=== PATIENT | female | born 1935 | race Hispanic/Latino ===

== ENCOUNTER 2018-09-17 17:48 | Emergency (ER) | payer MEDICARE ==
--- NOTE | 2018-09-17 18:08 | Event Note ---
ED Screening Note Date of service: 09/17/18 Time: 18:03 ED Screening Note: 83 y/o female comes in for weakness and not able to void except going through Preston. Decrease oral fluids and food. PMH stroke with rt side weakness. Has St Case heart valve. Here with [employer]. Has not started her abx and continues with lasix. This initial assessment/diagnostic orders/clinical plan/treatment(s) is/are subject to change based on patients health status, clinical progression and re- assessment by fellow clinical providers in the ED. Further treatment and workup at subsequent clinical providers discretion. Patient/guardian urged not to elope from the ED as their condition may be serious if not clinically assessed and managed. Initial orders include:
[2018-09-17 18:30] LABS: Basophils % (Auto) 0.2 % (0.0-1.8); Eosinophils # (Auto) 0.4 K/mm3 (0.0-0.4); Eosinophils % (Auto) 2.5 % (0.0-4.3); Hematocrit 34.4 % (30.3-42.9); Hemoglobin 11.3 gm/dl (10.1-14.3); Lymphocytes # (Auto) 1.8 K/mm3 (1.2-5.4); Lymphocytes % (Auto) 12.7 % (13.4-35.0); Mean Corpuscular HGB Conc 33 % (30-34); Mean Corpuscular Volume 87 fl (79-97); Monocytes # (Auto) 1.6 K/mm3 (0.0-0.8); Monocytes % (Auto) 11.1 % (0.0-7.3); Platelet Count 351 K/mm3 (140-440); Red Blood Count 3.94 M/mm3 (3.65-5.03); Red Cell Distribution Width 14.3 % (13.2-15.2)
[2018-09-17 19:00] LABS: Albumin 3.3 g/dL (3.9-5); Calcium 9.1 mg/dL (8.4-10.2)
[2018-09-17] MEDS ORDERED: NACL 0.9% 500 ML 500 ML IV ONE (19:09)
[2018-09-17] MEDS ORDERED: ROCEPHIN/NS 1 GM/50 ML 1 GM/50 ML BAG IV ONE (19:09)
[2018-09-17 19:49] LABS: Bacteria,Urine 4+ /HPF (Negative); Bilirubin,Urine NEG (Negative); Blood,Urine LG (Negative); Color,Urine Amber (Yellow); Mucus,Urine 2+ /HPF; Urobilinogen,Urine < 2.0 mg/dL (<2.0)
[2018-09-17 19:51] LABS: RBC,Urine > 182.0 /HPF (0.0-6.0)
[2018-09-17 19:56] LABS: INR 2.71 (0.87-1.13); Partial Thromboplastin Time 41.1 Sec. (24.2-36.6)
--- NOTE | 2018-09-17 21:09 | Emergency Department Report ---
ED Female HPI - General Chief complaint: Weakness Stated complaint: DEHYDRATION/KIDNEY AND BLADDER ISSUES/BRONCITIS Time Seen by Provider: 09/17/18 19:01 Source: patient, family Mode of arrival: Wheelchair Limitations: No Limitations - History of Present Illness Initial comments: Mrs. Lange is a very pleasant 83-year-old female with history of COPD, aortic valve replacement who was recently discharged from [facility] at 2:30 PM this afternoon. Due to "bladder not working", she has a Fang catheter in place. She developed hematuria with sediment. She called [place] [facility] who recommended emergency ED evaluation. She has been prescribed Ceftin. However she did not receive antibiotics while hospitalized for the last 4 days since . Her treatment diagnosis included dehydration, fall, urinary problems. She currently does not have any pain. Her personal nurse at the bedside stated chest x-ray today did not reveal any pneumonia. MD Complaint: other (hematuria) -: Gradual, This afternoon Severity: mild Consistency: constant Improves with: none Worsens with: none Are you Now?: No Associated Symptoms: other (cough) - Related Data Allergies Allergy/AdvReac Type Severity Reaction Status Date / Time acetaminophen [From Percocet] Allergy Swelling Verified 09/17/18 18:10 amitriptyline [From Elavil] Allergy Swelling Verified 09/17/18 18:10 Beta-Blockers Allergy Unknown Verified 09/17/18 18:10 (Beta-Adrenergic Bloc oxycodone [From Percocet] Allergy Swelling Verified 09/17/18 18:10 ED Review of Systems ROS: Stated complaint: DEHYDRATION/KIDNEY AND BLADDER ISSUES/BRONCITIS Other details as noted in HPI Comment: All other systems reviewed and negative Constitutional: malaise Respiratory: cough ED Past Medical Hx - Past Medical History Previous Medical History?: Yes Hx Hypertension: Yes Hx CVA: Yes Hx Diabetes: Yes Hx COPD: Yes Hx Dementia: Yes - Surgical History Past Surgical History?: Yes Additional Surgical History: back surgery, heart valve replacement - Social History Smoking Status: Unknown if ever smoked ED Physical Exam - General Limitations: No Limitations General appearance: alert, in no apparent distress - Head Head exam: Present: atraumatic, normocephalic - Eye Eye exam: Present: normal appearance - ENT ENT exam: Present: mucous membranes moist - Neck Neck exam: Present: normal inspection, full ROM - Respiratory Respiratory exam: Present: normal lung sounds bilaterally. Absent: respiratory distress, wheezes, rales, rhonchi - Cardiovascular Cardiovascular Exam: Present: regular rate, normal rhythm, normal heart sounds. Absent: systolic murmur, diastolic murmur, rubs, gallop - GI/Abdominal GI/Abdominal exam: Present: soft, normal bowel sounds. Absent: distended, tenderness, guarding, rebound - Extremities Exam Extremities exam: Present: normal inspection - Back Exam Back exam: Present: normal inspection - Neurological Exam Neurological exam: Present: alert, oriented X3 - Psychiatric Psychiatric exam: Present: normal affect, normal mood - Skin Skin exam: Present: warm, dry, intact, normal color. Absent: rash - Other Other exam information: dark orange urine in collection bag attached to fang catheter with sediment ED Course Vital Signs 09/17/18 09/17/18 09/17/18 17:56 19:25 19:50 Temperature 99.0 F 98.6 F Pulse Rate 86 88 Respiratory 11 L 12 12 Rate Blood Pressure Blood Pressure 126/60 134/51 [Right] O2 Sat by Pulse 93 91 91 Oximetry 09/17/18 20:30 Temperature Pulse Rate 86 Respiratory 16 Rate Blood Pressure 136/52 Blood Pressure [Right] O2 Sat by Pulse 91 Oximetry ED Medical Decision Making - Lab Data Result diagrams: 09/17/18 18:15 09/17/18 18:15 Laboratory Results - last 24 hr 09/17/18 09/17/18 09/17/18 18:15 18:15 19:31 WBC 14.0 H RBC 3.94 Hgb 11.3 Hct 34.4 MCV 87 MCH 29 MCHC 33 RDW 14.3 Plt Count 351 Lymph % (Auto) 12.7 L Sierra % (Auto) 11.1 H Eos % (Auto) 2.5 Baso % (Auto) 0.2 Lymph # 1.8 Sierra # 1.6 H Eos # 0.4 Baso # 0.0 Seg Neutrophils % 73.5 H Seg Neutrophils # 10.3 H PT INR APTT Sodium 139 Potassium 4.4 Chloride 99.9 Carbon Dioxide 28 Anion Gap 16 BUN 21 H Creatinine 1.3 H Estimated GFR 39 BUN/Creatinine Ratio 16 Glucose 146 H Calcium 9.1 Total Bilirubin 0.30 AST 22 ALT 11 Alkaline Phosphatase 60 NT-Pro-B Natriuret Pep 3874 H Total Protein 7.0 Albumin 3.3 L Albumin/Globulin Ratio 0.9 Urine Color Ary Urine Turbidity Slightly-cloudy Urine pH 5.0 Ur Specific [place] 1.018 Urine Protein 100 mg/dl Urine Glucose (UA) Neg Urine Ketones Neg Urine Blood Lg Urine Nitrite Pos Urine Bilirubin Neg Urine Urobilinogen < 2.0 Ur Leukocyte Esterase Sm Urine WBC (Auto) 171.0 H Urine RBC (Auto) > 182.0 Urine Bacteria (Auto) 4+ Urine Mucus 2+ 09/17/18 19:38 WBC RBC Hgb Hct MCV MCH MCHC RDW Plt Count Lymph % (Auto) Sierra % (Auto) Eos % (Auto) Baso % (Auto) Lymph # Sierra # Eos # Baso # Seg Neutrophils % Seg Neutrophils # PT 28.3 H INR 2.71 H APTT 41.1 H Sodium Potassium Chloride Carbon Dioxide Anion Gap BUN Creatinine Estimated GFR BUN/Creatinine Ratio Glucose Calcium Total Bilirubin AST ALT Alkaline Phosphatase NT-Pro-B Natriuret Pep Total Protein Albumin Albumin/Globulin Ratio Urine Color Urine Turbidity Urine pH Ur Specific [place] Urine Protein Urine Glucose (UA) Urine Ketones Urine Blood Urine Nitrite Urine Bilirubin Urine Urobilinogen Ur Leukocyte Esterase Urine WBC (Auto) Urine RBC (Auto) Urine Bacteria (Auto) Urine Mucus - Medical Decision Making Mrs. Lange has an indwelling Fang catheter from recent hospitalization. She was discharged today. She now has catheter associated urinary tract infection. She was prescribed the appropriate antibiotic Ceftin. She received IV fluid in the ED. She also received IV ceftriaxone. She received IV fluid due to concern for dehydration. Her personal nurse at the bedside requested IV fluid therapy. Discharged home in stable condition. Critical care attestation.: If time is entered above; I have spent that time in minutes in the direct care of this critically ill patient, excluding procedure time. ED Disposition Clinical Impression: Urinary tract infection, Dehydration Disposition: DC-01 TO HOME OR SELFCARE Is pt being admited?: No Does the pt Need Aspirin: No Condition: Stable Instructions: Fang Catheter Placement and Care (ED), Urinary Tract Infection in Women (ED) Referrals: ROCAEL WILBURN MD [Staff Physician] - 3-5 Days
[2018-09-17 21:31] VITALS: BP 133/60
== END 2018-09-17 21:25 | disposition home or self-care (01) ==
LOC: ED 17:48
DX: N39.0 Urinary tract infection, site not specified (principal); E86.0 Dehydration; I10 Essential (primary) hypertension; E11.9 Type 2 diabetes mellitus without complications; J44.9 Chronic obstructive pulmonary disease, unspecified; F03.90 Unspecified dementia, unspecified severity, without behavioral disturbance, psychotic disturbance, mood disturbance, and anxiety; Z95.2 Presence of prosthetic heart valve; Z88.8 Allergy status to other drugs, medicaments and biological substances; Z86.73 Personal history of transient ischemic attack (TIA), and cerebral infarction without residual deficits
CPT/HCPCS: 36415; 80053; 81001; 83880; 85025; 85610; 85730; 87076; 87086; 87186; 96365; 99283; J7040

== ENCOUNTER 2018-09-22 17:47 | Emergency (ER) | payer MEDICARE ==
[2018-09-22] MEDS ORDERED: ZOFRAN IV ONE (19:18)
[2018-09-22] MEDS ORDERED: NACL 0.9% 500 ML 500 ML IV ONE (19:18)
[2018-09-22] MEDS ORDERED: MORPHINE IV ONE (19:18)
--- NOTE | 2018-09-22 19:32 | Emergency Department Report ---
ED Female HPI - General Chief complaint: Urogenital-Female Stated complaint: BLOOD IN URINE Time Seen by Provider: 09/22/18 19:18 Source: patient Mode of arrival: Stretcher Limitations: No Limitations - History of Present Illness Initial comments: Mrs. Lange is a very pleasant 83-year-old female patient. I evaluated her recently in our emergency department. At that time she came immediately after being discharged for fall, UTI and dehydration. Her medical history includes COPD, aortic valve replacement. She presents today with hematuria and pelvic pain. She was evaluated by [place] neurology Dr. Christian. Dr. Christian has arranged further testing for bladder dysfunction. The tests scheduled for 10 days. Today she was evaluated and ambulated by physical therapist. After a short walk, patient developed hematuria with blood clots in the collection bag. She then developed severe pelvic pressure-like pain. MD Complaint: pelvic pain, other (hematuria) -: Sudden, This afternoon Location: other (pelvic pain) Severity: moderate, severe Quality: other (pressure) Consistency: constant Improves with: none Worsens with: none Are you Now?: No - Related Data Allergies Allergy/AdvReac Type Severity Reaction Status Date / Time acetaminophen [From Percocet] Allergy Swelling Verified 09/17/18 18:10 amitriptyline [From Elavil] Allergy Swelling Verified 09/17/18 18:10 Beta-Blockers Allergy Unknown Verified 09/17/18 18:10 (Beta-Adrenergic Bloc oxycodone [From Percocet] Allergy Swelling Verified 09/17/18 18:10 ED Review of Systems ROS: Stated complaint: BLOOD IN URINE Other details as noted in HPI Comment: All other systems reviewed and negative Constitutional: denies: fever, malaise Respiratory: denies: cough Cardiovascular: denies: chest pain Gastrointestinal: other (pelvic pain) Genitourinary: hematuria ED Past Medical Hx - Past Medical History Previous Medical History?: Yes Hx Hypertension: Yes Hx CVA: Yes Hx Diabetes: Yes Hx COPD: Yes Hx Dementia: Yes - Surgical History Past Surgical History?: Yes Additional Surgical History: back surgery, heart valve replacement - Social History Smoking Status: Former Smoker Substance Use Type: None ED Physical Exam - General Limitations: No Limitations General appearance: alert, in no apparent distress - Head Head exam: Present: atraumatic, normocephalic - Eye Eye exam: Present: normal appearance - ENT ENT exam: Present: mucous membranes moist - Neck Neck exam: Present: normal inspection, full ROM - Respiratory Respiratory exam: Present: normal lung sounds bilaterally. Absent: respiratory distress, wheezes, rales, rhonchi - Cardiovascular Cardiovascular Exam: Present: regular rate, normal rhythm, normal heart sounds. Absent: rubs, gallop - GI/Abdominal GI/Abdominal exam: Present: soft, normal bowel sounds. Absent: distended, tenderness, guarding, rebound - Extremities Exam Extremities exam: Present: normal inspection - Neurological Exam Neurological exam: Present: alert, oriented X3 - Psychiatric Psychiatric exam: Present: normal affect, normal mood - Skin Skin exam: Present: warm, dry, intact, normal color. Absent: rash - Other Other exam information: I reviewed urine collection bag: [place]ow dark urine observed without hematuria or clots or sediment ED Course Vital Signs 09/22/18 09/22/18 09/22/18 18:35 18:38 19:00 Temperature 98.0 F Pulse Rate 65 Respiratory 18 Rate Blood Pressure 125/48 128/53 Blood Pressure [Left] O2 Sat by Pulse 97 97 97 Oximetry 09/22/18 09/22/18 09/22/18 19:45 19:47 20:00 Temperature Pulse Rate Respiratory 17 17 Rate Blood Pressure 143/56 Blood Pressure [Left] O2 Sat by Pulse 94 Oximetry 09/22/18 09/22/18 20:43 23:19 Temperature Pulse Rate 65 Respiratory 15 Rate Blood Pressure 119/44 Blood Pressure 146/60 [Left] O2 Sat by Pulse 93 89 Oximetry ED Medical Decision Making - Lab Data Result diagrams: 09/22/18 19:33 09/22/18 19:33 - Radiology Data Radiology results: report reviewed CT scan abdomen and pelvis without contrast revealed right inferior rectus hematoma - Medical Decision Making Mrs. Lange presents with hematuria and dark urine pelvic pain. I suspect incidental trauma during physical therapy. Also suspect hematoma is likely reflective of previous fall which required admission recently. I gave the patient reassurance. She is continuing the antibiotic. She was discharged with an oral cephalosporin. I reviewed urine culture results, Escherichia coli organism is pansensitive. I have prescribed tramadol. Discharged home. INR is 3.0 Critical care attestation.: If time is entered above; I have spent that time in minutes in the direct care of this critically ill patient, excluding procedure time. ED Disposition Clinical Impression: Abdominal wall hematoma, Hematuria, Preston catheter in place, Anticoagulation adequate Disposition: DC-01 TO HOME OR SELFCARE Is pt being admited?: No Does the pt Need Aspirin: No Condition: Stable Instructions: Acute Hematuria (ED), Contusion in Adults (ED)
[2018-09-22] MEDS ORDERED: NACL 0.9% 250ML 500 ML ONE (19:41)
[2018-09-22 19:46] LABS: Basophils % (Auto) 0.4 % (0.0-1.8); Eosinophils # (Auto) 0.3 K/mm3 (0.0-0.4); Eosinophils % (Auto) 3.2 % (0.0-4.3); Hematocrit 29.7 % (30.3-42.9); Hemoglobin 9.9 gm/dl (10.1-14.3); Lymphocytes # (Auto) 1.9 K/mm3 (1.2-5.4); Lymphocytes % (Auto) 18.9 % (13.4-35.0); Mean Corpuscular HGB Conc 33 % (30-34); Mean Corpuscular Volume 87 fl (79-97); Monocytes # (Auto) 0.6 K/mm3 (0.0-0.8); Monocytes % (Auto) 6.4 % (0.0-7.3); Platelet Count 371 K/mm3 (140-440); Red Blood Count 3.42 M/mm3 (3.65-5.03); Red Cell Distribution Width 13.9 % (13.2-15.2)
[2018-09-22 20:02] LABS: Calcium 9.2 mg/dL (8.4-10.2)
--- NOTE | 2018-09-22 21:17 | Cat Scan Report ---
CT abdomen pelvis wo con INDICATION: Abdominal Pain. TECHNIQUE: All CT scans at this location are performed using CT dose reduction for ALARA by means of automated e xposure control. COMPARISON: None available. FINDINGS: Chronic interstitial disease in the lung bases, with a 1.3 cm left lower lobe nodule and what is thou ght to be focal pleural parenchymal scarring in the right base. Cholecystectomy. Liver, spleen and pancreas appear negative on this noncontrast exam. Nonobstructing calculus in the midpole of the right kidney. Kidneys and adrenals are otherwise negative. Abdominal a chuy is atherosclerotic but normal in size. Pelvis Normal appendix. Focal thickening of the right inferior rectus muscle, appears suggestive of hematoma . Scattered diverticula throughout the entire colon but no evidence of diverticulitis. Urinary bladde r is contracted and appears thick walled. Degenerative changes in the thoracolumbar spine but no acute skeletal lesions. IMPRESSION: 1. Right inferior rectus hematoma. 1.3 cm left lower lobe pulmonary nodule. It may be worthwhile to further evaluate the lungs with ches t CT. Signer Name: Dann Gardner MD Signed: 09/22/2018 9:13 PM Workstation Name: [id number]
[2018-09-22 21:27] LABS: Bacteria,Urine 2+ /HPF (Negative); Bilirubin,Urine NEG (Negative); Blood,Urine LG (Negative); Color,Urine Yellow (Yellow); Mucus,Urine FEW /HPF; Protein,Urine <15 mg/dL mg/dL (Negative); Urobilinogen,Urine < 2.0 mg/dL (<2.0)
[2018-09-22 21:28] LABS: RBC,Urine > 182.0 /HPF (0.0-6.0)
[2018-09-22 23:36] LABS: INR 2.98 (0.87-1.13)
[2018-09-23 02:46] VITALS: BP 114/48
== END 2018-09-23 00:10 | disposition home or self-care (01) ==
LOC: ED 17:47
DX: S36.32XA Contusion of stomach, initial encounter (principal); R31.9 Hematuria, unspecified; I10 Essential (primary) hypertension; E11.9 Type 2 diabetes mellitus without complications; J44.9 Chronic obstructive pulmonary disease, unspecified; F03.90 Unspecified dementia, unspecified severity, without behavioral disturbance, psychotic disturbance, mood disturbance, and anxiety; I63.9 Cerebral infarction, unspecified; Z87.891 Personal history of nicotine dependence; Z88.6 Allergy status to analgesic agent; Z88.8 Allergy status to other drugs, medicaments and biological substances; X58.XXXA Exposure to other specified factors, initial encounter; Y93.89 Activity, other specified; Y92.89 Other specified places as the place of occurrence of the external cause; Y99.8 Other external cause status
CPT/HCPCS: 36415; 74176; 80048; 81001; 85025; 85610; 87086; 96374; 96375; 99285; J2270; J2405; J7050

== ENCOUNTER 2018-09-27 17:14 | Inpatient (IN) | payer MEDICARE ==
--- NOTE | 2018-09-27 18:31 | History and Physical Report ---
History of Present Illness Chief complaint: she is weak, and more confused History of present illness: 83 YO Female with COPD,AVR, Debility, Dementia, Urinary Retention with indwelling fang catheter presents to ED for evaluation. Pt is confused and unable to provide detailed history. Pt history provided by daughter and son who are at bedside during exam and interview. As per family, the patient initially complained of pain with urination and well as pain with urination over the past week, with worsening symptoms over the past 3 days with concomitant confusion, decreased interaction with family. Pt also experienced decreased ability to conduct activities of daily living, and increased bedbound status with worsening gait instability. Pt is currently unable to ambulate independently and maintain upright seated position. Family also reports shortness of breath and increased productive cough with production of clear sputum without relief of symptoms with increased nebulizer therapy. EMS notified, and uopn arrival the patient was found to be in distress and transported to [facility]. Pt seen and evaluated in ED and found to have Encephalopathy, suspected UTI, COPD Exacerbation. Pt is unable to provide urine sample. No further history obtainable. Case management consulted for D/C Planning and placement. Advanced care planning conducted with patient and family:30minutes. Pt family acknowledge understanding and agreement with care plan. Pt admitted to [facility]. Past History Past Medical History: COPD, diabetes, hypertension, stroke, other (Urinary retention) Past Surgical History: valve replacement, Other (Back surgery') Social history: , lives with family. denies: smoking, alcohol abuse, prescription drug abuse Family history: hypertension Medications and Allergies Allergies Allergy/AdvReac Type Severity Reaction Status Date / Time acetaminophen [From Percocet] Allergy Swelling Verified 09/27/18 17:47 amitriptyline [From Elavil] Allergy Swelling Verified 09/27/18 17:47 Beta-Blockers Allergy Unknown Verified 09/27/18 17:47 (Beta-Adrenergic Bloc oxycodone [From Percocet] Allergy Swelling Verified 09/27/18 17:47 Review of Systems ROS unobtainable: due to mental status Exam - Constitutional Vitals: Temp Pulse Resp BP Pulse Ox 97.5 F L 60 16 127/63 97 09/27/18 17:39 09/27/18 17:39 09/27/18 17:39 09/27/18 17:39 09/27/18 17:39 General appearance: Present: mild distress - EENT ENT: hearing intact, clear oral mucosa - Neck Neck: Present: supple, normal ROM - Respiratory Respiratory: bilateral: CTA - Cardiovascular Heart Sounds: Present: S1 & S2. Absent: rub, click - Extremities Extremities: pulses symmetrical, No edema Peripheral Pulses: within normal limits - Abdominal General gastrointestinal: Present: soft, non-tender, non-distended, normal bowel sounds Female genitourinary: Present: normal - Integumentary Integumentary: Present: clear, dry, clammy, decreased turgor - Musculoskeletal Musculoskeletal: generalized weakness - Psychiatric Psychiatric: no appropriate mood/affect, no intact judgment & insight, no memory intact - Neurologic Neurologic: CNII-XII intact, moves all extremities, no gait normal Assessment and Plan - Patient Problems (1) Encephalopathy Current Visit: Yes Status: Acute Plan to address problem: CT head, Neuro check, IVF resuscitation therapy, seizure precautions, fall precautions, aspiration precautions, thyroid panel (2) COPD with exacerbation Current Visit: Yes Status: Acute Plan to address problem: Supplemental oxygen, chest x ray, d dimer, steroid therapy, nebulizer therapy, pulse oximetry, (3) Urinary tract infection Current Visit: No Status: Acute Qualifiers: Encounter type: initial encounter Plan to address problem: Empiric IV antibiotic therapy, urinalysis, pain control, CBC, CMP, monitor uop q shift. (4) Debility Current Visit: Yes Status: Acute Plan to address problem: PT consulted, supportive care, fall precautions. (5) Diabetes Current Visit: Yes Status: Acute Plan to address problem: ADA diet, insulin, acc check, supportive care. Hypoglycemia protocol. (6) H/O aortic valve replacement Current Visit: Yes Status: Chronic Plan to address problem: NO therapeutic anticoagulation: Pt is a fall risk. (7) DVT prophylaxis Current Visit: Yes Status: Acute Plan to address problem: SCD to BLE while in bed, prophylactic lovenox
[2018-09-27] MEDS ORDERED: ZOFRAN IV PRN (18:34)
[2018-09-27] MEDS ORDERED: SODIUM CHLORIDE FLUSH SYRINGE 10 ML IV PRN (18:34)
[2018-09-27] MEDS ORDERED: TYLENOL PO PRN (18:34)
[2018-09-27] MEDS ORDERED: SOLU-Medrol IV ONE (18:51)
--- NOTE | 2018-09-27 18:53 | Emergency Department Report ---
ED General Adult HPI - General Chief complaint: Urogenital-Female Stated complaint: CATHETER Source: patient Mode of arrival: Stretcher Limitations: No Limitations - History of Present Illness Initial comments: Mrs. Lange is an 83 yo female with hx of COPD, AVR and indwelling fang catheter. I am familiar with patient and family members (son and [id number]). This is my third evaluaton of Mrs. Lange in the past 11 days. [id number] has noticed worsening confusion. Recurrent hematuria has appears worse today. ON my most recent previous evaluation, she has lower abdominal pain. Inferior rectus hematoma was seen on CT which corresponds to bruising see on her lower abdomen and pelvis -: Gradual, week(s) (2 ) Consistency: constant Improves with: none Worsens with: other (time) Associated Symptoms: confusion, loss of appetite, malaise, weakness - Related Data Previous Rx's Medication Instructions Recorded Last Taken Type traMADol [Ultram 50 MG tab] 50 mg PO Q6HR PRN #15 tablet 09/22/18 Unknown Rx Allergies Allergy/AdvReac Type Severity Reaction Status Date / Time acetaminophen [From Percocet] Allergy Swelling Verified 09/27/18 17:47 amitriptyline [From Elavil] Allergy Swelling Verified 09/27/18 17:47 Beta-Blockers Allergy Unknown Verified 09/27/18 17:47 (Beta-Adrenergic Bloc oxycodone [From Percocet] Allergy Swelling Verified 09/27/18 17:47 ED Review of Systems ROS: Stated complaint: CATHETER Other details as noted in HPI Comment: Unobtainable due to pts medical conditions (limited hx due to patient's cooperation, elderly senility) Constitutional: malaise Neurological: confusion Hematological/Lymphatic: easy bruising ED Past Medical Hx - Past Medical History Previous Medical History?: Yes Hx Hypertension: Yes Hx CVA: Yes Hx Diabetes: Yes Hx COPD: Yes Hx Dementia: Yes - Surgical History Past Surgical History?: Yes Additional Surgical History: back surgery, heart valve replacement - Social History Smoking Status: Former Smoker Substance Use Type: None - Medications Home Medications: Home Medications Medication Instructions Recorded Confirmed Last Taken Type traMADol [Ultram 50 MG tab] 50 mg PO Q6HR PRN #15 tablet 09/22/18 Unknown Rx ED Physical Exam - General Limitations: No Limitations General appearance: alert, in no apparent distress, other (appears frail, elderly, chronically ill) - Head Head exam: Present: atraumatic, normocephalic - Eye Eye exam: Present: normal appearance - ENT ENT exam: Present: mucous membranes dry - Neck Neck exam: Present: normal inspection, full ROM - Respiratory Respiratory exam: Present: normal lung sounds bilaterally. Absent: respiratory distress, wheezes, rales - Cardiovascular Cardiovascular Exam: Present: regular rate, normal rhythm, normal heart sounds. Absent: rubs, gallop - GI/Abdominal GI/Abdominal exam: Present: soft, tenderness, guarding, normal bowel sounds, other (bruising and abrasions lower abdomen and pelvis). Absent: distended, rebound - Extremities Exam Extremities exam: Present: normal inspection - Back Exam Back exam: Present: normal inspection - Neurological Exam Neurological exam: Present: alert, other (oriented to name and "hospital") - Psychiatric Psychiatric exam: Present: normal mood, depressed, flat affect - Skin Skin exam: Present: rash, pallor, abrasion, ecchymosis ED Course Vital Signs 09/27/18 09/27/18 17:39 18:00 Temperature 97.5 F L Pulse Rate 60 Respiratory 16 16 Rate Blood Pressure 127/63 O2 Sat by Pulse 97 98 Oximetry Critical care attestation.: If time is entered above; I have spent that time in minutes in the direct care of this critically ill patient, excluding procedure time. ED Disposition Condition: Stable Referrals: WESTLEY OLIVA MD [Primary Care Provider] - 3-5 Days
[2018-09-27] MEDS ORDERED: SOLU-Medrol ONE (19:25)
--- NOTE | 2018-09-27 19:58 | XRay Report ---
CHEST 1 VIEW INDICATION / CLINICAL INFORMATION: dypsnea. COMPARISON: None available. FINDINGS: SUPPORT DEVICES: None. HEART / MEDIASTINUM: No significant abnormality. Midline sternotomy noted. LUNGS / PLEURA: Emphysema. No significant pulmonary or pleural abnormality. No pneumothorax. ADDITIONAL FINDINGS: No significant additional findings. IMPRESSION: 1. No acute findings. Signer Name: Ranjeet Price MD Signed: 09/27/2018 7:54 PM Workstation Name: [id number]
[2018-09-27 20:27] LABS: Basophils % (Auto) 0.3 % (0.0-1.8); Eosinophils # (Auto) 0.3 K/mm3 (0.0-0.4); Eosinophils % (Auto) 3.5 % (0.0-4.3); Hemoglobin 9.8 gm/dl (10.1-14.3); Lymphocytes # (Auto) 2.3 K/mm3 (1.2-5.4); Lymphocytes % (Auto) 25.2 % (13.4-35.0); Mean Corpuscular HGB Conc 33 % (30-34); Mean Corpuscular Hemoglobin 29 pg (28-32); Mean Corpuscular Volume 88 fl (79-97); Monocytes # (Auto) 0.6 K/mm3 (0.0-0.8); Monocytes % (Auto) 6.6 % (0.0-7.3); Platelet Count 417 K/mm3 (140-440); Red Blood Count 3.42 M/mm3 (3.65-5.03); Red Cell Distribution Width 14.5 % (13.2-15.2)
[2018-09-27 20:42] LABS: Bacteria,Urine 1+ /HPF (Negative); Bilirubin,Urine NEG (Negative); Blood,Urine LG (Negative); Color,Urine Yellow (Yellow); Hyaline Casts,Urine 3 /LPF; Mucus,Urine FEW /HPF; Urobilinogen,Urine < 2.0 mg/dL (<2.0)
--- NOTE | 2018-09-27 20:42 | Cat Scan Report ---
CT HEAD WITHOUT CONTRAST INDICATION: MAIN: FELL LAST WEEK. DIZZINESS. TECHNIQUE: All CT scans at this location are performed using CT dose reduction for ALARA by means of automated exposure control. COMPARISON: None available. FINDINGS: BRAIN: No hemorrhage or mass effect are seen. No evidence of acute infarction is noted. Moderate whit e matter microvascular changes are seen. Mild atrophic changes are noted. ORBITS: Normal as visualized. SOFT TISSUES OF HEAD: Normal. CALVARIUM: No fractures are seen. 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 VISUALIZED PARANASAL SINUSES AND MASTOID AIR CELLS: Mild ethmoid mucosal thickening is seen. No air-f luid levels are noted. ADDITIONAL FINDINGS: None. IMPRESSION: No acute intracranial abnormality. Signer Name: Bladimir Norman MD Signed: 09/27/2018 8:37 PM Workstation Name: [id number]
[2018-09-27 20:45] LABS: Albumin 3.4 g/dL (3.9-5); Calcium 8.9 mg/dL (8.4-10.2)
[2018-09-27 20:45] LABS: RBC,Urine > 182.0 /HPF (0.0-6.0)
[2018-09-27 20:52] LABS: Free T4 (Free Thyroxine) 0.96 ng/dL (0.76-1.46)
[2018-09-28] MEDS ORDERED: COUMADIN PO SCH (10:00)
[2018-09-28] MEDS ORDERED: PEPCID PO SCH (10:00)
[2018-09-28] MEDS ORDERED: NON-FORMULARY (Isosorbide Mononitrate [Isosorbide Mononitrate] 30 MG) PO SCH (10:00)
[2018-09-28] MEDS ORDERED: NON-FORMULARY (Calcium Carbonate [Calcium 600mg Tab] 600 MG) PO SCH (10:00)
[2018-09-28] MEDS ORDERED: K-DUR PO SCH (10:00)
[2018-09-28] MEDS ORDERED: CYANOCOBALAMIN 500 MG PO SCH (10:00)
[2018-09-28] MEDS: NACL 0.9% 1000 ML 1,000 ML IV SCH (10:28)
[2018-09-28] MEDS: ROCEPHIN/NS 1 GM/50 ML 1 GM/50 ML BAG IV SCH (10:30)
[2018-09-28] MEDS: PEPCID PO SCH ×2 (10:35→21:48)
[2018-09-28] MEDS: NAMENDA PO SCH ×2 (10:35→21:47)
[2018-09-28] MEDS: GLUCOPHAGE PO SCH (10:35)
[2018-09-28] MEDS: HALFPRIN EC PO SCH (10:35)
[2018-09-28] MEDS: VITAMIN D3 PO SCH (10:36)
[2018-09-28] MEDS: LASIX PO SCH (10:36)
[2018-09-28] MEDS: celeXA PO SCH (10:36)
[2018-09-28] MEDS: SODIUM CHLORIDE FLUSH SYRINGE 10 ML IV SCH ×3 (10:37→21:50)
[2018-09-28] MEDS: IMDUR PO SCH (10:38)
--- NOTE | 2018-09-28 11:08 | Progress Note ---
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 Pt is confused and unable to provide detailed history. Pt history provided by daughter and son who are at bedside during exam and interview. As per family, the patient initially complained of pain with urination and well as pain with urination over the past week, with worsening symptoms over the past 3 days with concomitant confusion, decreased interaction with family. Pt also experienced decreased ability to conduct activities of daily living, and increased bedbound status with worsening gait instability. Pt is currently unable to ambulate independently and maintain upright seated position. Family also reports shortness of breath and increased productive cough with production of clear sputum without relief of symptoms with increased nebulizer therapy. EMS notified, and uopn arrival the patient was found to be in distress and mao sported to [facility]. Pt seen and evaluated in ED and found to have Encephalopathy, suspected UTI, COPD Exacerbation. CT Head: No acute pathology Acute Metabolic Encephalopathy with baseline Dementia although worsening COPD with exacerbation Acute Cystitis with no evidence of SEPSIS Debility Diabetes Mellitus Urinary Retention with chronic indewwelling fang-Oupt work up in progress Secondary coagulopathy AVR-[place], Mechanical valve >30 years ago Dementia Hyperkalemia Anemia Inferior Rectus wall Hematoma PLAN Complex patient considering co-morbidites Monitor H/H Countinue coumadin, obtain Card eval PT/OT eval due to recurrent falls, risk discussed with patient and family (Son and daughter in-law) Fall precautions Urine culture Kayxalate x 1 continue abx CTA chest and Doppler lower ext dvt/GI PROPHY History Interval history: Patient seen and examined today complains of pain on both sides off Fang catheter attachments of the leg otherwise no other complaints. I did return and have a discussion with family reports the patient has had a mechanical aortic valve for almost 40 years. Has been on Coumadin unfortunately has continued to have recurrent falls including an episode where they believe she had hit her head on the sink was evaluated at [facility] at discharge. Most recent fall about 2 weeks ago. Hospitalist Physical - Physical exam Narrative exam: VITAL SIGNS: Reviewed. GENERAL: The patient appeared normally developed, pale. Vital signs as docu mented. HEAD: No signs of head trauma. EYES: Pupils are equal. Extraocular motions intact. EARS: Hearing grossly intact. MOUTH: Oropharynx is normal. NECK: No adenopathy, no JVD. CHEST: Chest with clear breath sounds bilaterally. No wheezes, rales, or rhonchi. CARDIAC: Regular rate and rhythm. S1 and S2, without murmurs, gallops, or rubs. VASCULAR: No Edema. Peripheral pulses normal and equal in all extremities. ABDOMEN: Soft, non tender and non distended. Hematoma noted No rebound or guarding, and no masses palpated. Bowel Sounds normal. : Fang catheter in place MUSCULOSKELETAL: Good range of motion of all major joints. Extremities without clubbing, cyanosis or edema. NEUROLOGIC EXAM: Alert and oriented x 3 No focal sensory or strength deficits. Speech normal. Follows commands. PSYCHIATRIC: Mood normal. SKIN: detail exam as documented in skin assessment septal notes that hematoma - Constitutional Vitals: Temp Pulse Resp BP Pulse Ox 98.1 F 63 18 150/66 98 09/28/18 08:08 09/28/18 10:38 09/28/18 08:08 09/28/18 10:38 09/28/18 08:31 General appearance: Present: mild distress Results - Labs CBC & Chem 7: 09/27/18 19:52 09/28/18 06:49 Labs: Laboratory Last Values WBC 9.0 K/mm3 (4.5-11.0) 09/27/18 19:52 RBC 3.42 M/mm3 (3.65-5.03) L 09/27/18 19:52 Hgb 9.8 gm/dl (10.1-14.3) L 09/27/18 19:52 Hct 30.0 % (30.3-42.9) L 09/27/18 19:52 MCV 88 fl (79-97) 09/27/18 19:52 MCH 29 pg (28-32) 09/27/18 19:52 MCHC 33 % (30-34) 09/27/18 19:52 RDW 14.5 % (13.2-15.2) 09/27/18 19:52 Plt Count 417 K/mm3 (140-440) 09/27/18 19:52 Lymph % (Auto) 25.2 % (13.4-35.0) 09/27/18 19:52 [place] % (Auto) 6.6 % (0.0-7.3) 09/27/18 19:52 Eos % (Auto) 3.5 % (0.0-4.3) 09/27/18 19:52 Baso % (Auto) 0.3 % (0.0-1.8) 09/27/18 19:52 Lymph # 2.3 K/mm3 (1.2-5.4) 09/27/18 19:52 [place] # 0.6 K/mm3 (0.0-0.8) 09/27/18 19:52 Eos # 0.3 K/mm3 (0.0-0.4) 09/27/18 19:52 Baso # 0.0 K/mm3 (0.0-0.1) 09/27/18 19:52 Seg Neutrophils % 64.4 % (40.0-70.0) 09/27/18 19:52 Seg Neutrophils # 5.8 K/mm3 (1.8-7.7) 09/27/18 19:52 408.99 ng/mlDDU (0-234) H 09/27/18 19:52 Sodium 138 mmol/L (137-145) 09/27/18 19:52 Potassium 5.5 mmol/L (3.6-5.0) H 09/28/18 06:49 Chloride 100.5 mmol/L (98-107) 09/27/18 19:52 Carbon Dioxide 32 mmol/L (22-30) H 09/27/18 19:52 11 mmol/L 09/27/18 19:52 BUN 21 mg/dL (7-17) H 09/27/18 19:52 1.2 mg/dL (0.7-1.2) 09/27/18 19:52 Estimated GFR 43 ml/min 09/27/18 19:52 18 % 09/27/18 19:52 Glucose 100 mg/dL (65-100) 09/27/18 19:52 Calcium 8.9 mg/dL (8.4-10.2) 09/27/18 19:52 0.20 mg/dL (0.1-1.2) 09/27/18 19:52 AST 17 units/L (5-40) 09/27/18 19:52 ALT 8 units/L (7-56) 09/27/18 19:52 58 units/L (35-129) 09/27/18 19:52 7.0 g/dL (6.3-8.2) 09/27/18 19:52 3.4 g/dL (3.9-5) L 09/27/18 19:52 0.9 % 09/27/18 19:52 TSH 3.420 mlU/mL (0.270-4.200) 09/27/18 19:52 Free T4 0.96 ng/dL (0.76-1.46) 09/27/18 19:52 Yellow (Yellow) 09/27/18 19:28 Cloudy (Clear) 09/27/18 19:28 5.0 (5.0-7.0) 09/27/18 19:28 Ur Specific Norman 1.016 (1.003-1.030) 09/27/18 19:28 30 mg/dl mg/dL (Negative) 09/27/18 19:28 Neg mg/dL (Negative) 09/27/18 19:28 Neg mg/dL (Negative) 09/27/18 19:28 Lg (Negative) 09/27/18 19:28 Neg (Negative) 09/27/18 19:28 Neg (Negative) 09/27/18 19:28 < 2.0 mg/dL (<2.0) 09/27/18 19:28 Ur Leukocyte Esterase Mod (Negative) 09/27/18 19:28 58.0 /HPF (0.0-6.0) H 09/27/18 19:28 > 182.0 /HPF (0.0-6.0) 09/27/18 19:28 U Epithel Cells (Auto) 3.0 /HPF (0-13.0) 09/27/18 19:28 1+ /HPF (Negative) 09/27/18 19:28 Hyaline Casts 3 /LPF 09/27/18 19:28 Few /HPF 09/27/18 19:28 2+ /HPF 09/27/18 19:28 Active Medications - Current Medications Current Medications: Generic Name Dose Route Start Last Admin Trade Name Freq PRN Reason Stop Dose Admin Albuterol 2.5 mg 09/27/18 18:34 Proventil IH Q4H PRN Shortness Of Breath Aspirin 81 mg 09/28/18 10:00 09/28/18 10:35 Halfprin Ec PO 81 mg DAILY LEONOR Administration Calcium Carbonate/Glycine 648 mg 09/28/18 22:00 Calcium Carbonate PO BID PENDING SALE TO [facility] Cholecalciferol 1,000 unit 09/28/18 10:00 09/28/18 10:36 Vitamin D3 PO 1,000 unit DAILY LEONOR Administration Citalopram Hydrobromide 10 mg 09/28/18 10:00 09/28/18 10:36 Celexa PO 10 mg DAILY LEONOR Administration Donepezil HCl 5 mg 09/28/18 22:00 Aricept PO QHS LEONOR Enoxaparin Sodium 40 mg 09/29/18 10:00 Lovenox SUB-Q QDAY LEONOR Famotidine 10 mg 09/28/18 11:00 09/28/18 10:35 Pepcid PO 10 mg BID LEONOR Administration Furosemide 40 mg 09/28/18 10:00 09/28/18 10:36 Lasix PO 40 mg DAILY LEONOR Administration Gabapentin 300 mg 09/28/18 22:00 Neurontin PO QHS PENDING SALE TO [facility] Sodium Chloride 1,000 mls @ 42 mls/hr 09/27/18 19:00 09/28/18 10:28 Nacl 0.9% 1000 Ml IV 42 mls/hr DIRECT LEONOR Administration Ceftriaxone Sodium 1 gm in 50 mls @ 100 mls/hr 09/28/18 10:00 09/28/18 10:30 Rocephin/Ns 1 Gm/50 Ml IV 100 mls/hr Q24H LEONOR Administration Protocol Isosorbide Mononitrate 30 mg 09/28/18 11:00 09/28/18 10:38 Imdur PO 30 mg DAILY LEONOR Administration Memantine 10 mg 09/28/18 10:00 09/28/18 10:35 Namenda PO 10 mg BID LEONOR Administration Metformin HCl 250 mg 09/28/18 10:00 09/28/18 10:35 Glucophage PO 250 mg QAMDIAB LEONOR Administration Miscellaneous Medication 500 mg 09/28/18 10:00 Cyanocobalamin (Vitamin B-12) [Vitamin B-12] PO DAILY PENDING SALE TO [facility] Ondansetron HCl 4 mg 09/27/18 18:34 Zofran IV Q8H PRN Nausea And Vomiting Potassium Chloride 10 meq 09/28/18 10:00 K-Dur PO DAILY LEONOR Primidone 50 mg 09/28/18 22:00 Mysoline PO QHS LEONOR Sodium Chloride 10 ml 09/27/18 22:00 09/28/18 10:37 Sodium Chloride Flush Syringe 10 Ml IV 10 ml BID LEONOR Administration Sodium Chloride 10 ml 09/27/18 18:34 Sodium Chloride Flush Syringe 10 Ml IV PRN PRN LINE FLUSH Warfarin Sodium 2.5 mg 09/28/18 10:00 Coumadin PO QWEEK PENDING SALE TO [facility] Protocol
[2018-09-28] MEDS: VITAMIN B-12 PO SCH (12:18)
--- NOTE | 2018-09-28 13:23 | Vascular Lab Report ---
DUPLEX DOPPLER LOWER EXTREMITY VEINS, BILATERAL INDICATION / CLINICAL INFORMATION: dvt. Lower extremity pain and swelling. TECHNIQUE: Duplex doppler imaging was performed through the veins of both lower extremities using venous butch eladio and other maneuvers. COMPARISON: None available. FINDINGS: Right Common Femoral vein: Negative. Right Femoral vein: Negative. Right Popliteal vein: Negative. Right Calf veins: Negative. Left Common Femoral vein: Negative. Left Femoral vein: Negative. Left Popliteal vein: Negative. Left Calf veins: Negative. Additional findings: None. IMPRESSION: 1. No sonographic evidence for DVT in either lower extremity. Signer Name: Ranjeet Price MD Signed: 09/28/2018 1:18 PM Workstation Name: [id number]
--- NOTE | 2018-09-28 14:57 | Cat Scan Report ---
CTA CHEST WITH IV CONTRAST INDICATION: Acute onset chest pain with dyspnea. TECHNIQUE: Axial CT images were obtained through the chest after injection of 60 mL Isovue [address] ane MIP reconstructions were produced. All CT scans at this location are performed using CT dose redu ction for ALARA by means of automated exposure control. COMPARISON: None available. FINDINGS: PULMONARY ARTERIES: No pulmonary emboli. AORTA AND ARTERIES: No acute abnormality. MEDIASTINUM: Midline sternotomy. Severe coronary artery calcification of the heart. No pericardial ef fusion. LUNGS: Multiple pulmonary nodules scattered throughout both lungs one of the largest measures 1.4 cm in diameter within the left lower lobe but many are seen scattered throughout both lungs consistent w ith metastatic disease. ADDITIONAL FINDINGS: None. UPPER ABDOMEN: No acute findings. BONES: No significant osseous abnormality. IMPRESSION: 1. No CT evidence for pulmonary embolism. 2. Bilateral pulmonary nodules scattered throughout both lungs consistent with pulmonary metastatic d isease uncertain primary. Signer Name: Ranjeet Price MD Signed: 09/28/2018 2:52 PM Workstation Name: [id number]
[2018-09-28] MEDS ORDERED: KIONEX PO ONE (16:00)
--- NOTE | 2018-09-28 17:15 | Ultrasound Report ---
Pelvic ultrasound INDICATION: Hematuria COMPARISON: CT pelvis 09/22/2018 Transabdominal study was performed. Preston catheter is seen within the bladder. Atrophic uterus measures 4.9 cm in length. Endometrial stripe cannot be identified well. No focal alturas rine lesions are seen. Left ovary measures 3.5 cm in length and shows no significant abnormalities. Small amount of marginal flow is seen. What appears to be the right ovary measures approximately 3.4 cm in length and shows s ome marginal flow. A third ovoid structure is located in the pelvis more anteriorly with a similar ap pearance to an ovary and measures 2.9 cm in length and shows some peripheral blood flow. Though possi helen this could be one of the ovaries, one of these structures may be a small lymph node or other smal l mass. No similar mass lesion is seen on the recent CT. Calcified nodes are seen in the upper mid pe lvis on CT. Etiology of the third of these 3 ovoid similar structures is unclear at this point. No free fluid is seen. IMPRESSION: 1. No acute abnormalities are seen 2. 3 similar-appearing ovoid adnexal soft tissue structures are noted, 2 of which probably are ovarie s and the third could be a lymph node or a small mass. Possibly this is just artifactual however. I w ould suggest follow-up to see if this is a persistent finding. I do not see an obvious CT correlate. Signer Name: Bladimir Norman MD Signed: 09/28/2018 5:10 PM Workstation Name: [id number]
[2018-09-28] MEDS: ARICEPT PO SCH (21:48)
[2018-09-28] MEDS: CALCIUM CARBONATE PO SCH (21:48)
[2018-09-28] MEDS: MYSOLINE PO SCH (21:48)
[2018-09-28] MEDS: NEURONTIN PO SCH (21:49)
[2018-09-29 05:10] LABS: Hematocrit 29.4 % (30.3-42.9); Hemoglobin 9.7 gm/dl (10.1-14.3); Mean Corpuscular HGB Conc 33 % (30-34); Mean Corpuscular Hemoglobin 29 pg (28-32); Mean Corpuscular Volume 88 fl (79-97); Platelet Count 386 K/mm3 (140-440); Red Blood Count 3.35 M/mm3 (3.65-5.03)
[2018-09-29 05:20] LABS: INR 1.47 (0.87-1.13)
[2018-09-29 05:23] LABS: Calcium 8.1 mg/dL (8.4-10.2)
[2018-09-29] MEDS: GLUCOPHAGE PO SCH (08:32)
[2018-09-29] MEDS: ROCEPHIN/NS 1 GM/50 ML 1 GM/50 ML BAG IV SCH (09:30)
[2018-09-29] MEDS: CALCIUM CARBONATE PO SCH ×2 (09:33→22:01)
[2018-09-29] MEDS: LASIX PO SCH (09:34)
[2018-09-29] MEDS: IMDUR PO SCH (09:34)
[2018-09-29] MEDS: VITAMIN D3 PO SCH (09:34)
[2018-09-29] MEDS: NAMENDA PO SCH ×2 (09:34→22:01)
[2018-09-29] MEDS: PEPCID PO SCH ×2 (09:34→22:02)
[2018-09-29] MEDS: SODIUM CHLORIDE FLUSH SYRINGE 10 ML IV SCH ×2 (09:35→22:02)
[2018-09-29] MEDS: celeXA PO SCH (09:35)
[2018-09-29] MEDS: HALFPRIN EC PO SCH (09:35)
[2018-09-29] MEDS ORDERED: LOVENOX SUB-Q SCH (10:00)
[2018-09-29] MEDS: VITAMIN B-12 PO SCH (10:12)
[2018-09-29] MEDS: NACL 0.9% 1000 ML 1,000 ML IV SCH (10:18)
--- NOTE | 2018-09-29 10:38 | Consultation ---
History of Present Illness Consult date: 09/29/18 Requesting physician: TRENA PEÑA Reason for consult: other (multiple pulmonary nodules) History of present illness: 83 y/o female admitted with confusion. Per ED report has been seen 3x in the last 11 days. Concern this time was for more confusion and possible UTI. IMS admitted the patient. A history of COPD has been provided as well as dyspnea and chest pain.. Given this a CTA was done. There is no structural evidence of COPD but mulitple, well rounded pulmonary nodules were seen bilaterally and pulmonary was consulted because of this. Past History Past Medical History: COPD (per report), diabetes, hypertension, stroke, other (Urinary retention) Past Surgical History: valve replacement, Other (Back surgery') Social history: , lives with family. denies: smoking, alcohol abuse, prescription drug abuse Family history: hypertension Medications and Allergies Allergies Allergy/AdvReac Type Severity Reaction Status Date / Time acetaminophen [From Percocet] Allergy Swelling Verified 09/27/18 17:47 amitriptyline [From Elavil] Allergy Swelling Verified 09/27/18 17:47 Beta-Blockers Allergy Unknown Verified 09/27/18 17:47 (Beta-Adrenergic Bloc oxycodone [From Percocet] Allergy Swelling Verified 09/27/18 17:47 Home Medications Medication Instructions Recorded Confirmed Last Taken Type Aspirin [Adult Aspirin] 81 mg PO DAILY 09/27/18 09/27/18 Unknown History Calcium Carbonate [Calcium 600MG 600 mg PO BID 09/27/18 09/27/18 Unknown History TAB] Cholecalciferol Vit D3 [Vitamin D3 1,000 mg PO DAILY 09/27/18 09/27/18 Unknown History 1,000 UNIT TAB] Citalopram [Celexa] 10 mg PO DAILY 09/27/18 09/27/18 Unknown History Cyanocobalamin (Vitamin B-12) 500 mg PO DAILY 09/27/18 09/27/18 Unknown History [Vitamin B-12] Donepezil [Aricept] 5 mg PO QHS 09/27/18 09/27/18 Unknown History Famotidine [Pepcid] 20 mg PO BID 09/27/18 09/27/18 Unknown History Furosemide [Lasix TAB] 40 mg PO DAILY 09/27/18 09/27/18 Unknown History Gabapentin [Neurontin] 300 mg PO QHS 09/27/18 09/27/18 Unknown History Isosorbide Mononitrate 30 mg PO DAILY 09/27/18 09/27/18 Unknown History Memantine [Namenda] 10 mg PO BID 09/27/18 09/27/18 Unknown History Potassium Chloride [K-Dur] 10 mg PO DAILY 09/27/18 09/27/18 Unknown History Primidone [Mysoline] 50 mg PO QHS 09/27/18 09/27/18 Unknown History Warfarin [Coumadin] 2.5 mg PO QWEEK 09/27/18 09/27/18 Unknown History metFORMIN [Glucophage] 250 mg PO DAILY 09/27/18 09/27/18 Unknown History Active Meds: Active Medications Albuterol (Proventil) 2.5 mg IH Q4H PRN PRN Reason: Shortness Of Breath Aspirin (Halfprin Ec) 81 mg PO DAILY COUNTS INCLUDE 234 BEDS AT THE [facility] Last Admin: 09/29/18 09:35 Dose: 81 mg Documented by: Calcium Carbonate/Glycine (Calcium Carbonate) 648 mg PO BID COUNTS INCLUDE 234 BEDS AT THE [facility] Last Admin: 09/29/18 09:33 Dose: 648 mg Documented by: Cholecalciferol (Vitamin D3) 1,000 unit PO DAILY COUNTS INCLUDE 234 BEDS AT THE [facility] Last Admin: 09/29/18 09:34 Dose: 1,000 unit Documented by: Citalopram Hydrobromide (Celexa) 10 mg PO DAILY COUNTS INCLUDE 234 BEDS AT THE [facility] Last Admin: 09/29/18 09:35 Dose: 10 mg Documented by: Cyanocobalamin (Vitamin B-12) 500 mcg PO QDAY COUNTS INCLUDE 234 BEDS AT THE [facility] Last Admin: 09/29/18 10:12 Dose: 500 mcg Documented by: Donepezil HCl (Aricept) 5 mg PO QHS COUNTS INCLUDE 234 BEDS AT THE [facility] Last Admin: 09/28/18 21:48 Dose: 5 mg Documented by: Famotidine (Pepcid) 10 mg PO BID COUNTS INCLUDE 234 BEDS AT THE [facility] Last Admin: 09/29/18 09:34 Dose: 10 mg Documented by: Furosemide (Lasix) 40 mg PO DAILY COUNTS INCLUDE 234 BEDS AT THE [facility] Last Admin: 09/29/18 09:34 Dose: 40 mg Documented by: Gabapentin (Neurontin) 300 mg PO QHS COUNTS INCLUDE 234 BEDS AT THE [facility] Last Admin: 09/28/18 21:49 Dose: 300 mg Documented by: Sodium Chloride (Nacl 0.9% 1000 Ml) 1,000 mls @ 42 mls/hr IV DIRECT COUNTS INCLUDE 234 BEDS AT THE [facility] Last Admin: 09/29/18 10:18 Dose: 42 mls/hr Documented by: Ceftriaxone Sodium (Rocephin/Ns 1 Gm/50 Ml) 1 gm in 50 mls @ 100 mls/hr IV Q24H COUNTS INCLUDE 234 BEDS AT THE [facility]; Protocol Last Admin: 09/29/18 09:30 Dose: 100 mls/hr Documented by: Isosorbide Mononitrate (Imdur) 30 mg PO DAILY COUNTS INCLUDE 234 BEDS AT THE [facility] Last Admin: 09/29/18 09:34 Dose: 30 mg Documented by: Memantine (Namenda) 10 mg PO BID COUNTS INCLUDE 234 BEDS AT THE [facility] Last Admin: 09/29/18 09:34 Dose: 10 mg Documented by: Metformin HCl (Glucophage) 250 mg PO QAMDIAB COUNTS INCLUDE 234 BEDS AT THE [facility] Last Admin: 09/29/18 08:32 Dose: Not Given Documented by: Ondansetron HCl (Zofran) 4 mg IV Q8H PRN PRN Reason: Nausea And Vomiting Primidone (Mysoline) 50 mg PO QHS COUNTS INCLUDE 234 BEDS AT THE [facility] Last Admin: 09/28/18 21:48 Dose: 50 mg Documented by: Sodium Chloride (Sodium Chloride Flush Syringe 10 Ml) 10 ml IV BID COUNTS INCLUDE 234 BEDS AT THE [facility] Last Admin: 09/29/18 09:35 Dose: 10 ml Documented by: Sodium Chloride (Sodium Chloride Flush Syringe 10 Ml) 10 ml IV PRN PRN PRN Reason: LINE FLUSH Warfarin Sodium (Coumadin) 1.25 mg PO DAILY@1700 COUNTS INCLUDE 234 BEDS AT THE [facility] Review of Systems All systems: negative Physical Examination Vital signs: Vital Signs Temp Pulse Resp BP Pulse Ox 97.5 F L 60 16 127/63 97 09/27/18 17:39 09/27/18 17:39 09/27/18 17:39 09/27/18 17:39 09/27/18 17:39 General appearance: asleep Eyes: non-icteric Neck: supple Effort: normal Ascultation: Bilateral: clear Percussion: Bilateral: not dull Results - Laboratory Findings CBC and BMP: 09/29/18 03:52 09/29/18 03:52 PT/INR, D-dimer PT 17.5 Sec. (12.2-14.9) H 09/29/18 03:52 INR 1.47 (0.87-1.13) H 09/29/18 03:52 408.99 ng/mlDDU (0-234) H 09/27/18 19:52 Abnormal lab findings: Abnormal Labs 09/27/18 09/27/18 09/27/18 19:28 19:52 19:52 RBC 3.42 L Hgb 9.8 L Hct 30.0 L PT INR D-Dimer Potassium 5.2 H Carbon Dioxide 32 H BUN 21 H Calcium Albumin 3.4 L Urine WBC (Auto) 58.0 H 09/27/18 09/28/18 09/29/18 19:52 06:49 03:52 RBC 3.35 L Hgb 9.7 L Hct 29.4 L PT INR D-Dimer 408.99 H Potassium 5.5 H Carbon Dioxide BUN Calcium Albumin Urine WBC (Auto) 09/29/18 09/29/18 03:52 03:52 RBC Hgb Hct PT 17.5 H INR 1.47 H D-Dimer Potassium Carbon Dioxide 32 H BUN Calcium 8.1 L Albumin Urine WBC (Auto) - Diagnostic Findings CT scan - chest: report reviewed, image reviewed Assessment and Plan 83 y/o female with multiple bilateral pulmonary nodules, most likely metastatic disease from unknown origin at this time. 1. Suggest CT ABD/Pelvis with contrast if possible 2. Suggest TWISTER DOFFER consult as well 3. Head CT was negative 4. Would discontinue albuterol treatments, even though they are only PRN 5. Call if any questions. Only person available was Personal care nurse at bedside. She states that a CT of the abdomen pelvis is going to happen today. Signing off now. Call if questions.
--- NOTE | 2018-09-29 10:42 | Consultation ---
History of Present Illness Consult date: 09/29/18 Consult reason: known to you, other (mechanical AVR) History of present illness: This is frail, 83-year old woman with multiple medical problems. She has Urinary Retention with an indwelling fang catheter who was brought to this hospital with complaint of abdominal pain with hematuria seen in the collection bag. H&H is stable. Due to an elevated D-dimer a CT scan of the chest was done that reports bilateral pulmonary nodules suggestive of metastatic disease. No evidence of PE. A cardiac consultation has been requested for history of mechanical AVR. Patient is known to [facility] and has a history of coronary artery disease with sharona te coronary bypass grafting and mechanical aortic valve replacement. Patient also has a history of paroxysmal atrial fibrillation. Patient takes warfarin for oral anticoagulation. A year ago, she underwent a cardiac cath that reports [place] vessel CAD, patent SVG to diagonal and patent SVG to OM. RICE was not used. An echocardiogram showed a well preserved ejection fraction of 55%. Co- morbidities includes Dementia, Hypertension and Diabetes. Patient denies chest pain, unusual shortness of breath and palpitations. Noted an INR on presentation of 1.47. There is no ECG available but telemetry strips shows sinus rhythm with occasional PVCs. Past History Past Medical History: COPD, diabetes, hypertension, stroke, other (Urinary retention) Past Surgical History: valve replacement, Other (Back surgery') Social history: , lives with family. denies: smoking, alcohol abuse, prescription drug abuse Family history: hypertension Medications and Allergies Allergies Allergy/AdvReac Type Severity Reaction Status Date / Time acetaminophen [From Percocet] Allergy Swelling Verified 09/27/18 17:47 amitriptyline [From Elavil] Allergy Swelling Verified 09/27/18 17:47 Beta-Blockers Allergy Unknown Verified 09/27/18 17:47 (Beta-Adrenergic Bloc oxycodone [From Percocet] Allergy Swelling Verified 09/27/18 17:47 Home Medications Medication Instructions Recorded Confirmed Last Taken Type Aspirin [Adult Aspirin] 81 mg PO DAILY 09/27/18 09/27/18 Unknown History Calcium Carbonate [Calcium 600MG 600 mg PO BID 09/27/18 09/27/18 Unknown History TAB] Cholecalciferol Vit D3 [Vitamin D3 1,000 mg PO DAILY 09/27/18 09/27/18 Unknown History 1,000 UNIT TAB] Citalopram [Celexa] 10 mg PO DAILY 09/27/18 09/27/18 Unknown History Cyanocobalamin (Vitamin B-12) 500 mg PO DAILY 09/27/18 09/27/18 Unknown History [Vitamin B-12] Donepezil [Aricept] 5 mg PO QHS 09/27/18 09/27/18 Unknown History Famotidine [Pepcid] 20 mg PO BID 09/27/18 09/27/18 Unknown History Furosemide [Lasix TAB] 40 mg PO DAILY 09/27/18 09/27/18 Unknown History Gabapentin [Neurontin] 300 mg PO QHS 09/27/18 09/27/18 Unknown History Isosorbide Mononitrate 30 mg PO DAILY 09/27/18 09/27/18 Unknown History Memantine [Namenda] 10 mg PO BID 09/27/18 09/27/18 Unknown History Potassium Chloride [K-Dur] 10 mg PO DAILY 09/27/18 09/27/18 Unknown History Primidone [Mysoline] 50 mg PO QHS 09/27/18 09/27/18 Unknown History Warfarin [Coumadin] 2.5 mg PO QWEEK 09/27/18 09/27/18 Unknown History metFORMIN [Glucophage] 250 mg PO DAILY 09/27/18 09/27/18 Unknown History Active Meds: Active Medications Albuterol (Proventil) 2.5 mg IH Q4H PRN PRN Reason: Shortness Of Breath Aspirin (Halfprin Ec) 81 mg PO DAILY [facility] Last Admin: 09/29/18 09:35 Dose: 81 mg Documented by: Calcium Carbonate/Glycine (Calcium Carbonate) 648 mg PO BID [facility] Last Admin: 09/29/18 09:33 Dose: 648 mg Documented by: Cholecalciferol (Vitamin D3) 1,000 unit PO DAILY [facility] Last Admin: 09/29/18 09:34 Dose: 1,000 unit Documented by: Citalopram Hydrobromide (Celexa) 10 mg PO DAILY [facility] Last Admin: 09/29/18 09:35 Dose: 10 mg Documented by: Cyanocobalamin (Vitamin B-12) 500 mcg PO QDAY [facility] Last Admin: 09/29/18 10:12 Dose: 500 mcg Documented by: Donepezil HCl (Aricept) 5 mg PO QHS [facility] Last Admin: 09/28/18 21:48 Dose: 5 mg Documented by: Famotidine (Pepcid) 10 mg PO BID [facility] Last Admin: 09/29/18 09:34 Dose: 10 mg Documented by: Furosemide (Lasix) 40 mg PO DAILY [facility] Last Admin: 09/29/18 09:34 Dose: 40 mg Documented by: Gabapentin (Neurontin) 300 mg PO QHS [facility] Last Admin: 09/28/18 21:49 Dose: 300 mg Documented by: Sodium Chloride (Nacl 0.9% 1000 Ml) 1,000 mls @ 42 mls/hr IV DIRECT [facility] Last Admin: 09/29/18 10:18 Dose: 42 mls/hr Documented by: Ceftriaxone Sodium (Rocephin/Ns 1 Gm/50 Ml) 1 gm in 50 mls @ 100 mls/hr IV Q24H [facility]; Protocol Last Admin: 09/29/18 09:30 Dose: 100 mls/hr Documented by: Isosorbide Mononitrate (Imdur) 30 mg PO DAILY [facility] Last Admin: 09/29/18 09:34 Dose: 30 mg Documented by: Memantine (Namenda) 10 mg PO BID [facility] Last Admin: 09/29/18 09:34 Dose: 10 mg Documented by: Metformin HCl (Glucophage) 250 mg PO QAMDIAB [facility] Last Admin: 09/29/18 08:32 Dose: Not Given Documented by: Ondansetron HCl (Zofran) 4 mg IV Q8H PRN PRN Reason: Nausea And Vomiting Primidone (Mysoline) 50 mg PO QHS [facility] Last Admin: 09/28/18 21:48 Dose: 50 mg Documented by: Sodium Chloride (Sodium Chloride Flush Syringe 10 Ml) 10 ml IV BID [facility] Last Admin: 09/29/18 09:35 Dose: 10 ml Documented by: Sodium Chloride (Sodium Chloride Flush Syringe 10 Ml) 10 ml IV PRN PRN PRN Reason: LINE FLUSH Warfarin Sodium (Coumadin) 1.25 mg PO DAILY@1700 [facility] Physical Examination Vital Signs Temp Pulse Resp BP Pulse Ox 97.5 F L 60 16 127/63 97 09/27/18 17:39 09/27/18 17:39 09/27/18 17:39 09/27/18 17:39 09/27/18 17:39 General appearance: no acute distress HEENT: Positive: PERRL Neck: Positive: trachea midline Cardiac: Positive: Reg Rate and Rhythm Lungs: Positive: Decreased Breath Sounds Neuro: Positive: Weakness Extremities: Absent: edema Results 09/29/18 03:52 09/29/18 03:52 Coagulation 09/29/18 Range/Units 03:52 PT 17.5 H (12.2-14.9) Sec. INR 1.47 H (0.87-1.13) CBC 09/29/18 Range/Units 03:52 WBC 8.8 (4.5-11.0) K/mm3 RBC 3.35 L (3.65-5.03) M/mm3 Hgb 9.7 L (10.1-14.3) gm/dl Hct 29.4 L (30.3-42.9) % Plt Count 386 (140-440) K/mm3 Comprehensive Metabolic Panel 09/29/18 Range/Units 03:52 Sodium 143 (137-145) mmol/L Potassium 4.2 D (3.6-5.0) mmol/L Chloride 101.4 (98-107) mmol/L Carbon Dioxide 32 H (22-30) mmol/L BUN 17 (7-17) mg/dL Creatinine 1.2 (0.7-1.2) mg/dL Glucose 76 (65-100) mg/dL Calcium 8.1 L (8.4-10.2) mg/dL Assessment and Plan Hematuria UTI Elevated D-dimer chest CTA reports bilateral pulmonary nodules suggestive of metastatic disease. No evidence of PE. Hx of Urinary retention with fang catheter in place Hx of CAD with CABG in 1993 [facility] 09/2017 reports [place] vessel CAD, patent SVG to diagonal and patent SVG to OM. RICE was not used. Echocardiogram done 10/2017 showed a well preserved ejection fraction of 55%. Aortic Valve replacement -mechanical on warfarin; INR of 1.47 on presentation Hx of paroxysmal Afib Dementia Hypertension Diabetes
--- NOTE | 2018-09-29 14:49 | Cat Scan Report ---
CT ABDOMEN AND PELVIS WITH AND WITHOUT CONTRAST HISTORY: metastic disease. Multiple pulmonary nodules. Follow-up rectus muscle hematoma. COMPARISON: 09/22/2018 TECHNIQUE: Axial CT images were obtained through the abdomen and pelvis with and without IV contrast. Sagittal and coronal reformatted images. All CT scans at this location are performed using CT dose r eduction for ALARA by means of automated exposure control. FINDINGS: CT ABDOMEN: Lung Bases: Few scattered pulmonary nodules at both lung bases are unchanged. No infiltrate or effusi on. Normal heart size. Liver: No significant abnormality. Calcified granuloma near the liver hilum is noted. Biliary: Cholecystectomy. Spleen: No significant abnormality. Unenlarged. Pancreas: No significant abnormality. Adrenals: No significant abnormality. Kidneys: There are 2 adjacent calyceal stones in the mid right kidney measuring 5 mm and 3 mm which a re unchanged. No evidence for renal cystic disease, mass or hydronephrosis. The ureters and bladder a re unremarkable. A Preston catheter is in place. Lymphatics: No lymphadenopathy. Vasculature: Moderate diffuse aortic and iliac artery calcifications are noted. No aneurysm or dissec tion. Bowel/Peritoneum: There are a few scattered diverticula in the distal colon. No evidence for obstruct ion, obvious mass or inflammation. No free fluid or free air. Normal appendix CT PELVIS: : No significant abnormality. Osseous Structures: Mild osteopenia, lumbar scoliosis and advanced multilevel degenerative change is noted. There is a small bony defect in the right iliac wing on image 55 of the axial sequences. This may represent a bone graft donor site. No obvious destructive lesion or mass in this area. Additional Findings: Right inferior rectus muscle hematoma has decreased by 25%. IMPRESSION: No acute process. No evidence for metastatic disease below the hemidiaphragms. The primary lesion is not clearly eviden t in the abdomen or pelvis. Right renal stones, nonobstructing. Mild diverticulosis of the distal colon. Decreased size of the right rectal muscle hematoma. Signer Name: Chris Camp Jr, MD Signed: 09/29/2018 2:44 PM Workstation Name: [id number]
[2018-09-29] MEDS ORDERED: COUMADIN PO SCH (17:00)
--- NOTE | 2018-09-29 17:14 | Progress Note ---
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 Pt is confused and unable to provide detailed history. Pt history provided by daughter and son who are at bedside during exam and interview. As per family, the patient initially complained of pain with urination and well as pain with urination over the past week, with worsening symptoms over the past 3 days with concomitant confusion, decreased interaction with family. Pt also experienced decreased ability to conduct activities of daily living, and increased bedbound status with worsening gait instability. Pt is currently unable to ambulate independently and maintain upright seated position. Family also reports shortness of breath and increased productive cough with production of clear sputum without relief of symptoms with increased nebulizer therapy. EMS notified, and uopn arrival the patient was found to be in distress and mao sported to [facility]. Pt seen and evaluated in ED and found to have Encephalopathy, suspected UTI, COPD Exacerbation. * Work up concerning for Metastic lung lesion * Discussed with personal care Nurse, patient had Lung surgery in the 80s CT Head: No acute pathology CT chest: Multiple Pulmonary Nodule concerning for Metastatic Disease. Pelvic Ultrasound: Adnexal mass, concerning for enlarged lymphnode Acute Metabolic Encephalopathy with baseline Dementia although worsening COPD Acute Cystitis with no evidence of SEPSIS Debility Diabetes Mellitus Urinary Retention with chronic indwelling fang-Oupt work up in progress Secondary coagulopathy with subtherapeutic INR AVR-[place], Mechanical valve >30 years ago Dementia Hyperkalemia- corrected Anemia Inferior Rectus wall Hematoma Remote Hx of Lung CA PLAN Complex patient considering co-morbidites Considering finding in the lungs, Vest Front Presser and CT chest, abdomen and pelvis consulted SEISMIC PLOTTER consulted for further evaluation, Patient also with Hematuria Continue to Monitor H/H Continue coumadin, wth target INR OF 2-2.5 PER Cardiology considering risk assocaiate with possible thrombotic closure of mechanical valve if needed PT/OT eval due to recurrent falls, risk discussed with patient and family (Son and daughter in-law) Fall precautions Urine culture Kayxalate x 1 continue abx dvt/GI PROPHY History Interval history: Patient seen and examined today no new complaints. Patient admitted with Sepsis secondary to UTI. Personal care nurse at bedside Hospitalist Physical - Physical exam Narrative exam: VITAL SIGNS: Reviewed. GENERAL: The patient appeared normally developed, pale. lathergic, Vital signs as documented. HEAD: No signs of head trauma. EYES: Pupils are equal. Extraocular motions intact. EARS: Hearing grossly intact. MOUTH: Oropharynx is normal. NECK: No adenopathy, no JVD. CHEST: Chest with clear breath sounds bilaterally. No wheezes, rales, or rhonchi. CARDIAC: Regular rate and rhythm. S1 and S2, without murmurs, gallops, or rubs. VASCULAR: No Edema. Peripheral pulses normal and equal in all extremities. ABDOMEN: Soft, non tender and non distended. skin discoloration, No rebound or guarding, and no masses palpated. Bowel Sounds normal. : Fang catheter in place MUSCULOSKELETAL: Good range of motion of all major joints. Extremities without clubbing, cyanosis or edema. NEUROLOGIC EXAM: Alert, lethargic, and oriented x 3 No focal sensory or strength deficits. Speech normal. Follows commands. PSYCHIATRIC: Mood normal. SKIN: detail exam as documented in skin assessment notes otherwise except noted hematoma - Constitutional Vitals: Temp Pulse Resp BP Pulse Ox 98.0 F 59 L 20 118/58 92 09/29/18 13:37 09/29/18 13:37 09/29/18 13:37 09/29/18 13:37 09/29/18 13:37 General appearance: Present: no acute distress Results - Labs CBC & Chem 7: 09/29/18 03:52 09/29/18 03:52 Labs: Laboratory Last Values WBC 8.8 K/mm3 (4.5-11.0) 09/29/18 03:52 RBC 3.35 M/mm3 (3.65-5.03) L 09/29/18 03:52 Hgb 9.7 gm/dl (10.1-14.3) L 09/29/18 03:52 Hct 29.4 % (30.3-42.9) L 09/29/18 03:52 MCV 88 fl (79-97) 09/29/18 03:52 MCH 29 pg (28-32) 09/29/18 03:52 MCHC 33 % (30-34) 09/29/18 03:52 RDW 15.0 % (13.2-15.2) 09/29/18 03:52 Plt Count 386 K/mm3 (140-440) 09/29/18 03:52 Lymph % (Auto) 25.2 % (13.4-35.0) 09/27/18 19:52 [place] % (Auto) 6.6 % (0.0-7.3) 09/27/18 19:52 Eos % (Auto) 3.5 % (0.0-4.3) 09/27/18 19:52 Baso % (Auto) 0.3 % (0.0-1.8) 09/27/18 19:52 Lymph # 2.3 K/mm3 (1.2-5.4) 09/27/18 19:52 [place] # 0.6 K/mm3 (0.0-0.8) 09/27/18 19:52 Eos # 0.3 K/mm3 (0.0-0.4) 09/27/18 19:52 Baso # 0.0 K/mm3 (0.0-0.1) 09/27/18 19:52 Seg Neutrophils % 64.4 % (40.0-70.0) 09/27/18 19:52 Seg Neutrophils # 5.8 K/mm3 (1.8-7.7) 09/27/18 19:52 PT 17.5 Sec. (12.2-14.9) H 09/29/18 03:52 INR 1.47 (0.87-1.13) H 09/29/18 03:52 408.99 ng/mlDDU (0-234) H 09/27/18 19:52 Sodium 143 mmol/L (137-145) 09/29/18 03:52 Potassium 4.2 mmol/L (3.6-5.0) D 09/29/18 03:52 Chloride 101.4 mmol/L (98-107) 09/29/18 03:52 Carbon Dioxide 32 mmol/L (22-30) H 09/29/18 03:52 14 mmol/L 09/29/18 03:52 BUN 17 mg/dL (7-17) 09/29/18 03:52 1.2 mg/dL (0.7-1.2) 09/29/18 03:52 Estimated GFR 43 ml/min 09/29/18 03:52 14 % 09/29/18 03:52 Glucose 76 mg/dL (65-100) 09/29/18 03:52 Calcium 8.1 mg/dL (8.4-10.2) L 09/29/18 03:52 0.20 mg/dL (0.1-1.2) 09/27/18 19:52 AST 17 units/L (5-40) 09/27/18 19:52 ALT 8 units/L (7-56) 09/27/18 19:52 58 units/L (35-129) 09/27/18 19:52 7.0 g/dL (6.3-8.2) 09/27/18 19:52 3.4 g/dL (3.9-5) L 09/27/18 19:52 0.9 % 09/27/18 19:52 TSH 3.420 mlU/mL (0.270-4.200) 09/27/18 19:52 Free T4 0.96 ng/dL (0.76-1.46) 09/27/18 19:52 Yellow (Yellow) 09/27/18 19:28 Cloudy (Clear) 09/27/18 19:28 5.0 (5.0-7.0) 09/27/18 19:28 Ur Specific [place] 1.016 (1.003-1.030) 09/27/18 19:28 30 mg/dl mg/dL (Negative) 09/27/18 19:28 Neg mg/dL (Negative) 09/27/18 19:28 Neg mg/dL (Negative) 09/27/18 19:28 Lg (Negative) 09/27/18 19:28 Neg (Negative) 09/27/18 19:28 Neg (Negative) 09/27/18 19:28 < 2.0 mg/dL (<2.0) 09/27/18 19:28 Ur Leukocyte Esterase Mod (Negative) 09/27/18 19:28 58.0 /HPF (0.0-6.0) H 09/27/18 19:28 > 182.0 /HPF (0.0-6.0) 09/27/18 19:28 U Epithel Cells (Auto) 3.0 /HPF (0-13.0) 09/27/18 19:28 1+ /HPF (Negative) 09/27/18 19:28 Hyaline Casts 3 /LPF 09/27/18 19:28 Few /HPF 09/27/18 19:28 2+ /HPF 09/27/18 19:28 Active Medications - Current Medications Current Medications: Generic Name Dose Route Start Last Admin Trade Name Don PRN Reason Stop Dose Admin Albuterol 2.5 mg 09/27/18 18:34 Proventil IH Q4H PRN Shortness Of Breath Aspirin 81 mg 09/28/18 10:00 09/29/18 09:35 Halfprin Ec PO 81 mg DAILY [facility] Administration Calcium Carbonate/Glycine 648 mg 09/28/18 22:00 09/29/18 09:33 Calcium Carbonate PO 648 mg BID [facility] Administration Cholecalciferol 1,000 unit 09/28/18 10:00 09/29/18 09:34 Vitamin D3 PO 1,000 unit DAILY [facility] Administration Citalopram Hydrobromide 10 mg 09/28/18 10:00 09/29/18 09:35 Celexa PO 10 mg DAILY [facility] Administration Cyanocobalamin 500 mcg 09/28/18 12:00 09/29/18 10:12 Vitamin B-12 PO 500 mcg QDAY [facility] Administration Donepezil HCl 5 mg 09/28/18 22:00 09/28/18 21:48 Aricept PO 5 mg QHS [facility] Administration Famotidine 10 mg 09/28/18 11:00 09/29/18 09:34 Pepcid PO 10 mg BID [facility] Administration Furosemide 40 mg 09/28/18 10:00 09/29/18 09:34 Lasix PO 40 mg DAILY [facility] Administration Gabapentin 300 mg 09/28/18 22:00 09/28/18 21:49 Neurontin PO 300 mg QHS [facility] Administration Sodium Chloride 1,000 mls @ 42 mls/hr 09/27/18 19:00 09/29/18 10:18 Nacl 0.9% 1000 Ml IV 42 mls/hr DIRECT [facility] Administration Ceftriaxone Sodium 1 gm in 50 mls @ 100 mls/hr 09/28/18 10:00 09/29/18 09:30 Rocephin/Ns 1 Gm/50 Ml IV 100 mls/hr Q24H [facility] Administration Protocol Isosorbide Mononitrate 30 mg 09/28/18 11:00 09/29/18 09:34 Imdur PO 30 mg DAILY [facility] Administration Memantine 10 mg 09/28/18 10:00 09/29/18 09:34 Namenda PO 10 mg BID [facility] Administration Metformin HCl 250 mg 09/28/18 10:00 09/29/18 08:32 Glucophage PO Not Given QAMDIAB [facility] Ondansetron HCl 4 mg 09/27/18 18:34 Zofran IV Q8H PRN Nausea And Vomiting Primidone 50 mg 09/28/18 22:00 09/28/18 21:48 Mysoline PO 50 mg QHS [facility] Administration Sodium Chloride 10 ml 09/27/18 22:00 09/29/18 09:35 Sodium Chloride Flush Syringe 10 Ml IV 10 ml BID [facility] Administration Sodium Chloride 10 ml 09/27/18 18:34 Sodium Chloride Flush Syringe 10 Ml IV PRN PRN LINE FLUSH Warfarin Sodium 1.25 mg 09/29/18 17:00 Coumadin PO DAILY@1700 [facility] Nutrition/Malnutrition Assess - Dietary Evaluation Nutrition/Malnutrition Findings: Nutrition Notes Start: 09/29/18 15:12 Freq: Status: Active Protocol: Document 09/29/18 15:12 OH (Rec: 09/29/18 15:14 OH [id number]) Nutrition Notes Initial or Follow up Brief Note Subjective/Other Information Coumadin education request ( DNI). Pt. currently receiving coumadin and monitored by MD > 10 years. Nutrition Intervention Revisit per MD consult or patient Sign Off request: Additional Comments No further coumadin education required at this time.
[2018-09-29] MEDS: ARICEPT PO SCH (22:01)
[2018-09-29] MEDS: NEURONTIN PO SCH (22:01)
[2018-09-29] MEDS: MYSOLINE PO SCH (22:02)
[2018-09-30 05:13] LABS: INR 1.3 (0.87-1.13)
--- NOTE | 2018-09-30 09:37 | Progress Note ---
Assessment and Plan Hematuria UTI Elevated D-dimer chest CTA reports bilateral pulmonary nodules suggestive of metastatic disease. No evidence of PE. Hx of lung cancer surgery in the past Hx of Urinary retention with fang catheter in place Hx of CAD with CABG in 1993 [facility] 09/2017 reports [place] vessel CAD, patent SVG to diagonal and patent SVG to OM. RICE was not used. Echocardiogram done 10/2017 showed a well preserved ejection fraction of 55%. Aortic Valve replacement -mechanical on warfarin; INR of 1.47 on presentation Hx of paroxysmal Afib Dementia Hypertension Diabetes Continue warfarin for mechanical aortic valve with target INR the low therapeutic range of 2.0-2.5. Subjective Date of service: 09/30/18 Interval history: No cardiac complaints. INR of 1.30 today. Objective Vital Signs Temp Pulse Pulse Resp BP Pulse Ox 09/30/18 07:26 97.8 F 59 L 20 119/49 99 09/30/18 04:00 60 09/30/18 02:35 97.7 F 59 L 18 129/46 99 09/29/18 22:00 67 67 18 99 09/29/18 19:13 98.7 F 67 18 120/51 91 09/29/18 13:37 98.0 F 59 L 20 118/58 92 09/29/18 10:00 69 09/29/18 09:34 65 135/62 - Physical Examination General: No Apparent Distress HEENT: Positive: PERRL Neck: Positive: trachea midline Cardiac: Positive: Irregularly Regular Lungs: Positive: Decreased Breath Sounds Neuro: Positive: Weakness Extremities: Absent: edema - Labs and Meds Coagulation 09/30/18 Range/Units 04:37 PT 15.9 H (12.2-14.9) Sec. INR 1.30 H (0.87-1.13)
[2018-09-30] MEDS: ROCEPHIN/NS 1 GM/50 ML 1 GM/50 ML BAG IV SCH (09:42)
[2018-09-30] MEDS: HALFPRIN EC PO SCH (09:42)
[2018-09-30] MEDS: celeXA PO SCH (09:42)
[2018-09-30] MEDS: PEPCID PO SCH ×2 (09:43→22:18)
[2018-09-30] MEDS: GLUCOPHAGE PO SCH (09:43)
[2018-09-30] MEDS: VITAMIN B-12 PO SCH (09:43)
[2018-09-30] MEDS: LASIX PO SCH (09:43)
[2018-09-30] MEDS: CALCIUM CARBONATE PO SCH ×2 (09:44→22:18)
[2018-09-30] MEDS: SODIUM CHLORIDE FLUSH SYRINGE 10 ML IV SCH (09:44)
[2018-09-30] MEDS: VITAMIN D3 PO SCH (09:44)
[2018-09-30] MEDS: IMDUR PO SCH (09:44)
[2018-09-30] MEDS: NAMENDA PO SCH ×2 (09:44→22:17)
--- NOTE | 2018-09-30 13:42 | Progress Note ---
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 Pt is confused and unable to provide detailed history. Pt history provided by daughter and son who are at bedside during exam and interview. As per family, the patient initially complained of pain with urination and well as pain with urination over the past week, with worsening symptoms over the past 3 days with concomitant confusion, decreased interaction with family. Pt also experienced decreased ability to conduct activities of daily living, and increased bedbound status with worsening gait instability. Pt is currently unable to ambulate independently and maintain upright seated position. Family also reports shortness of breath and increased productive cough with production of clear sputum without relief of symptoms with increased nebulizer therapy. EMS notified, and uopn arrival the patient was found to be in distress and tra nsported to [facility]. Pt seen and evaluated in ED and found to have Encephalopathy, suspected UTI, COPD Exacerbation. Work up concerning for Metastic lung lesion - Discussed with personal care Nurse, patient had Lung surgery in the 80s - Patient and her son wants to know the diagnosis - I put a consult for IR if they can do biopsy CT Head: No acute pathology CT chest: Multiple Pulmonary Nodule concerning for Metastatic Disease. Pelvic Ultrasound: Adnexal mass, concerning for enlarged lymphnode Acute Metabolic Encephalopathy with baseline Dementia although worsening COPD Acute Cystitis with no evidence of SEPSIS Debility Diabetes Mellitus Urinary Retention with chronic indwelling fang-Oupt work up in progress Secondary coagulopathy with subtherapeutic INR AVR-[place] [facility], Mechanical valve >30 years ago Dementia Hyperkalemia- corrected Anemia Inferior Rectus wall Hematoma Remote Hx of Lung CA PLAN Complex patient considering co-morbidites Considering finding in the lungs, Gang Saw Operator recommend this CT abdomen and pelvis which didn't show any mass. Pulmonary sign off MEDICARE SPECIALIST consulted for further evaluation, Patient also with Hematuria Continue to Monitor H/H Continue coumadin, wth target INR OF 2-2.5 PER Cardiology considering risk assocaiate with possible thrombotic closure of mechanical valve if needed PT/OT eval due to recurrent falls, risk discussed with patient and family (Son and daughter in-law) Fall precautions Urine culture continue abx dvt/GI PROPHY Disposition; we'll follow recommendation from MEDICARE SPECIALIST, and IR. History Interval history: Patient was seen and evaluated this morning. Patient didn't have any new complaints. Patient and son wants to know about the pulmonary nodules. Hospitalist Physical - Physical exam Narrative exam: Not in cardiopulmonary distress. The patient appeared well nourished and normally developed. Vital signs as documented. Head exam is unremarkable. No scleral icterus . Neck is without jugular venous distension, thyromegaly, or carotid bruits. Lungs are clear to auscultation. Cardiac exam reveals regular rate and Rhythm. Abdominal exam reveals normal bowel sounds, no masses, no organomegaly and no aortic enlargement. Extremities are nonedematous and both femoral and pedal pulses are normal. 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 No focal weakness. - Constitutional Vitals: Temp Pulse Resp BP Pulse Ox 97.8 F 59 L 20 119/49 99 09/30/18 07:26 09/30/18 10:00 09/30/18 07:26 09/30/18 09:44 09/30/18 07:26 General appearance: Present: no acute distress Results - Labs CBC & Chem 7: 09/29/18 03:52 09/29/18 03:52 Labs: Laboratory Last Values WBC 8.8 K/mm3 (4.5-11.0) 09/29/18 03:52 RBC 3.35 M/mm3 (3.65-5.03) L 09/29/18 03:52 Hgb 9.7 gm/dl (10.1-14.3) L 09/29/18 03:52 Hct 29.4 % (30.3-42.9) L 09/29/18 03:52 MCV 88 fl (79-97) 09/29/18 03:52 MCH 29 pg (28-32) 09/29/18 03:52 MCHC 33 % (30-34) 09/29/18 03:52 RDW 15.0 % (13.2-15.2) 09/29/18 03:52 Plt Count 386 K/mm3 (140-440) 09/29/18 03:52 Lymph % (Auto) 25.2 % (13.4-35.0) 09/27/18 19:52 [place] % (Auto) 6.6 % (0.0-7.3) 09/27/18 19:52 Eos % (Auto) 3.5 % (0.0-4.3) 09/27/18 19:52 Baso % (Auto) 0.3 % (0.0-1.8) 09/27/18 19:52 Lymph # 2.3 K/mm3 (1.2-5.4) 09/27/18 19:52 [place] # 0.6 K/mm3 (0.0-0.8) 09/27/18 19:52 Eos # 0.3 K/mm3 (0.0-0.4) 09/27/18 19:52 Baso # 0.0 K/mm3 (0.0-0.1) 09/27/18 19:52 Seg Neutrophils % 64.4 % (40.0-70.0) 09/27/18 19:52 Seg Neutrophils # 5.8 K/mm3 (1.8-7.7) 09/27/18 19:52 PT 15.9 Sec. (12.2-14.9) H 09/30/18 04:37 INR 1.30 (0.87-1.13) H 09/30/18 04:37 408.99 ng/mlDDU (0-234) H 09/27/18 19:52 Sodium 143 mmol/L (137-145) 09/29/18 03:52 Potassium 4.2 mmol/L (3.6-5.0) D 09/29/18 03:52 Chloride 101.4 mmol/L (98-107) 09/29/18 03:52 Carbon Dioxide 32 mmol/L (22-30) H 09/29/18 03:52 14 mmol/L 09/29/18 03:52 BUN 17 mg/dL (7-17) 09/29/18 03:52 1.2 mg/dL (0.7-1.2) 09/29/18 03:52 Estimated GFR 43 ml/min 09/29/18 03:52 14 % 09/29/18 03:52 Glucose 76 mg/dL (65-100) 09/29/18 03:52 POC Glucose 111 (70-105) H 09/30/18 08:12 Calcium 8.1 mg/dL (8.4-10.2) L 09/29/18 03:52 0.20 mg/dL (0.1-1.2) 09/27/18 19:52 AST 17 units/L (5-40) 09/27/18 19:52 ALT 8 units/L (7-56) 09/27/18 19:52 58 units/L (35-129) 09/27/18 19:52 7.0 g/dL (6.3-8.2) 09/27/18 19:52 3.4 g/dL (3.9-5) L 09/27/18 19:52 0.9 % 09/27/18 19:52 TSH 3.420 mlU/mL (0.270-4.200) 09/27/18 19:52 Free T4 0.96 ng/dL (0.76-1.46) 09/27/18 19:52 Yellow (Yellow) 09/27/18 19:28 Cloudy (Clear) 09/27/18 19:28 5.0 (5.0-7.0) 09/27/18 19:28 Ur Specific Oil Trough 1.016 (1.003-1.030) 09/27/18 19:28 30 mg/dl mg/dL (Negative) 09/27/18 19:28 Neg mg/dL (Negative) 09/27/18 19:28 Neg mg/dL (Negative) 09/27/18 19:28 Lg (Negative) 09/27/18 19:28 Neg (Negative) 09/27/18 19:28 Neg (Negative) 09/27/18 19:28 < 2.0 mg/dL (<2.0) 09/27/18 19:28 Ur Leukocyte Esterase Mod (Negative) 09/27/18 19:28 58.0 /HPF (0.0-6.0) H 09/27/18 19:28 > 182.0 /HPF (0.0-6.0) 09/27/18 19:28 U Epithel Cells (Auto) 3.0 /HPF (0-13.0) 09/27/18 19:28 1+ /HPF (Negative) 09/27/18 19:28 Hyaline Casts 3 /LPF 09/27/18 19:28 Few /HPF 09/27/18 19:28 2+ /HPF 09/27/18 19:28 Active Medications - Current Medications Current Medications: Generic Name Dose Route Start Last Admin Trade Name Freq PRN Reason Stop Dose Admin Albuterol 2.5 mg 09/27/18 18:34 Proventil IH Q4H PRN Shortness Of Breath Aspirin 81 mg 09/28/18 10:00 09/30/18 09:42 Halfprin Ec PO 81 mg DAILY [facility] Administration Calcium Carbonate/Glycine 648 mg 09/28/18 22:00 09/30/18 09:44 Calcium Carbonate PO 648 mg BID [facility] Administration Cholecalciferol 1,000 unit 09/28/18 10:00 09/30/18 09:44 Vitamin D3 PO 1,000 unit DAILY [facility] Administration Citalopram Hydrobromide 10 mg 09/28/18 10:00 09/30/18 09:42 Celexa PO 10 mg DAILY [facility] Administration Cyanocobalamin 500 mcg 09/28/18 12:00 09/30/18 09:43 Vitamin B-12 PO 500 mcg QDAY [facility] Administration Donepezil HCl 5 mg 09/28/18 22:00 09/29/18 22:01 Aricept PO 5 mg QHS [facility] Administration Famotidine 10 mg 09/28/18 11:00 09/30/18 09:43 Pepcid PO 10 mg BID [facility] Administration Furosemide 40 mg 09/28/18 10:00 09/30/18 09:43 Lasix PO 40 mg DAILY [facility] Administration Gabapentin 300 mg 09/28/18 22:00 09/29/18 22:01 Neurontin PO 300 mg QHS [facility] Administration Sodium Chloride 1,000 mls @ 42 mls/hr 09/27/18 19:00 09/29/18 10:18 Nacl 0.9% 1000 Ml IV 42 mls/hr DIRECT [facility] Administration Ceftriaxone Sodium 1 gm in 50 mls @ 100 mls/hr 09/28/18 10:00 09/30/18 09:42 Rocephin/Ns 1 Gm/50 Ml IV 100 mls/hr Q24H [facility] Administration Protocol Isosorbide Mononitrate 30 mg 09/28/18 11:00 09/30/18 09:44 Imdur PO 30 mg DAILY [facility] Administration Memantine 10 mg 09/28/18 10:00 09/30/18 09:44 Namenda PO 10 mg BID [facility] Administration Metformin HCl 250 mg 09/28/18 10:00 09/30/18 09:43 Glucophage PO 250 mg QAMDIAB [facility] Administration Ondansetron HCl 4 mg 09/27/18 18:34 Zofran IV Q8H PRN Nausea And Vomiting Primidone 50 mg 09/28/18 22:00 09/29/18 22:02 Mysoline PO 50 mg QHS [facility] Administration Sodium Chloride 10 ml 09/27/18 22:00 09/30/18 09:44 Sodium Chloride Flush Syringe 10 Ml IV 10 ml BID [facility] Administration Sodium Chloride 10 ml 09/27/18 18:34 Sodium Chloride Flush Syringe 10 Ml IV PRN PRN LINE FLUSH Warfarin Sodium 2 mg 09/30/18 17:00 Coumadin PO DAILY@1700 [facility] Nutrition/Malnutrition Assess - Dietary Evaluation Nutrition/Malnutrition Findings: Nutrition Notes Start: 09/29/18 15:12 Freq: Status: Active Protocol: Document 09/29/18 15:12 OH (Rec: 09/29/18 15:14 OH [id number]) Nutrition Notes Initial or Follow up Brief Note Subjective/Other Information Coumadin education request ( DNI). Pt. currently receiving coumadin and monitored by MD > 10 years. Nutrition Intervention Revisit per MD consult or patient Sign Off request: Additional Comments No further coumadin education required at this time.
[2018-09-30] MEDS: COUMADIN PO SCH (18:29)
[2018-09-30] MEDS: NEURONTIN PO SCH (22:17)
[2018-09-30] MEDS: ARICEPT PO SCH (22:18)
[2018-09-30] MEDS: MYSOLINE PO SCH (22:19)
--- NOTE | 2018-09-30 23:25 | Consultation ---
History of Present Illness Consult date: 09/30/18 Reason for consult: other (ovarian mass) History of present illness: Patient is a 83-year-old female who presents initially with painful urination and urinary retention. The patient was also confused on admission and a limited history was available. As part of her workup patient received a pelvic ultrasound as well as CT scan of abdomen and pelvis in a small 3 cm pelvic mass was identified that appeared to be separate from either ovary. Past History Past Medical History: heart disease, neurologic (dementia), lung disease, vascular disease, cancer Past Surgical History: other (AVR) Family/Genetic History: none Social history: no significant social history Medications and Allergies Allergies Allergy/AdvReac Type Severity Reaction Status Date / Time acetaminophen [From Percocet] Allergy Swelling Verified 09/27/18 17:47 amitriptyline [From Elavil] Allergy Swelling Verified 09/27/18 17:47 Beta-Blockers Allergy Unknown Verified 09/27/18 17:47 (Beta-Adrenergic Bloc oxycodone [From Percocet] Allergy Swelling Verified 09/27/18 17:47 Home Medications Medication Instructions Recorded Confirmed Last Taken Type Aspirin [Adult Aspirin] 81 mg PO DAILY 09/27/18 09/27/18 Unknown History Calcium Carbonate [Calcium 600MG 600 mg PO BID 09/27/18 09/27/18 Unknown History TAB] Cholecalciferol Vit D3 [Vitamin D3 1,000 mg PO DAILY 09/27/18 09/27/18 Unknown History 1,000 UNIT TAB] Citalopram [Celexa] 10 mg PO DAILY 09/27/18 09/27/18 Unknown History Cyanocobalamin (Vitamin B-12) 500 mg PO DAILY 09/27/18 09/27/18 Unknown History [Vitamin B-12] Donepezil [Aricept] 5 mg PO QHS 09/27/18 09/27/18 Unknown History Famotidine [Pepcid] 20 mg PO BID 09/27/18 09/27/18 Unknown History Furosemide [Lasix TAB] 40 mg PO DAILY 09/27/18 09/27/18 Unknown History Gabapentin [Neurontin] 300 mg PO QHS 09/27/18 09/27/18 Unknown History Isosorbide Mononitrate 30 mg PO DAILY 09/27/18 09/27/18 Unknown History Memantine [Namenda] 10 mg PO BID 09/27/18 09/27/18 Unknown History Potassium Chloride [K-Dur] 10 mg PO DAILY 09/27/18 09/27/18 Unknown History Primidone [Mysoline] 50 mg PO QHS 09/27/18 09/27/18 Unknown History Warfarin [Coumadin] 2.5 mg PO QWEEK 09/27/18 09/27/18 Unknown History metFORMIN [Glucophage] 250 mg PO DAILY 09/27/18 09/27/18 Unknown History Active Meds: Active Medications Albuterol (Proventil) 2.5 mg IH Q4H PRN PRN Reason: Shortness Of Breath Aspirin (Halfprin Ec) 81 mg PO DAILY [facility] Last Admin: 09/30/18 09:42 Dose: 81 mg Documented by: Calcium Carbonate/Glycine (Calcium Carbonate) 648 mg PO BID [facility] Last Admin: 09/30/18 22:18 Dose: 648 mg Documented by: Cholecalciferol (Vitamin D3) 1,000 unit PO DAILY [facility] Last Admin: 09/30/18 09:44 Dose: 1,000 unit Documented by: Citalopram Hydrobromide (Celexa) 10 mg PO DAILY [facility] Last Admin: 09/30/18 09:42 Dose: 10 mg Documented by: Cyanocobalamin (Vitamin B-12) 500 mcg PO QDAY [facility] Last Admin: 09/30/18 09:43 Dose: 500 mcg Documented by: Donepezil HCl (Aricept) 5 mg PO QHS [facility] Last Admin: 09/30/18 22:18 Dose: 5 mg Documented by: Famotidine (Pepcid) 10 mg PO BID [facility] Last Admin: 09/30/18 22:18 Dose: 10 mg Documented by: Furosemide (Lasix) 40 mg PO DAILY [facility] Last Admin: 09/30/18 09:43 Dose: 40 mg Documented by: Gabapentin (Neurontin) 300 mg PO QHS [facility] Last Admin: 09/30/18 22:17 Dose: 300 mg Documented by: Sodium Chloride (Nacl 0.9% 1000 Ml) 1,000 mls @ 42 mls/hr IV DIRECT [facility] Last Admin: 09/29/18 10:18 Dose: 42 mls/hr Documented by: Ceftriaxone Sodium (Rocephin/Ns 1 Gm/50 Ml) 1 gm in 50 mls @ 100 mls/hr IV Q24H [facility]; Protocol Last Admin: 09/30/18 09:42 Dose: 100 mls/hr Documented by: Isosorbide Mononitrate (Imdur) 30 mg PO DAILY [facility] Last Admin: 09/30/18 09:44 Dose: 30 mg Documented by: Memantine (Namenda) 10 mg PO BID [facility] Last Admin: 09/30/18 22:17 Dose: 10 mg Documented by: Metformin HCl (Glucophage) 250 mg PO QAMDIAB [facility] Last Admin: 09/30/18 09:43 Dose: 250 mg Documented by: Ondansetron HCl (Zofran) 4 mg IV Q8H PRN PRN Reason: Nausea And Vomiting Primidone (Mysoline) 50 mg PO QHS [facility] Last Admin: 09/30/18 22:19 Dose: 50 mg Documented by: Sodium Chloride (Sodium Chloride Flush Syringe 10 Ml) 10 ml IV BID [facility] Last Admin: 09/30/18 09:44 Dose: 10 ml Documented by: Sodium Chloride (Sodium Chloride Flush Syringe 10 Ml) 10 ml IV PRN PRN PRN Reason: LINE FLUSH Warfarin Sodium (Coumadin) 2 mg PO DAILY@1700 [facility] Last Admin: 09/30/18 18:29 Dose: 2 mg Documented by: Review of Systems All systems: negative Constitutional: weight loss, fever Respiratory: shortness of breath, wheezing Genitourinary: dysuria, pelvic pain Musculoskeletal: muscle weakness - Vital Signs Vital signs: Vital Signs Temp Pulse Resp BP Pulse Ox 97.5 F L 60 16 127/63 97 09/27/18 17:39 09/27/18 17:39 09/27/18 17:39 09/27/18 17:39 09/27/18 17:39 Temp Pulse Resp BP Pulse Ox 97.3 F L 56 L 20 127/43 95 09/30/18 19:59 09/30/18 19:59 09/30/18 19:59 09/30/18 19:59 09/30/18 22:00 - Physical Exam Breasts: Positive: deferred Cardiovascular: Regular rate, Normal S1, Normal S2 Lungs: Positive: Clear to auscultation Abdomen: Positive: normal appearance, soft, normal bowel sounds Genitourinary (Female): Positive: normal external genitalia, normal perenium Vulva: both: normal Vagina: Positive: other (indwelling fang catheter) Adnexa: both: normal Extremities: Positive: normal Deep Tendon Reflex Grade: Normal +2 - Obstetrical Uterine Contraction Intensity: Moderate Results Result Diagrams: 09/29/18 03:52 09/29/18 03:52 Abnormal lab results 09/30/18 09/30/18 Range/Units 04:37 08:12 PT 15.9 H (12.2-14.9) Sec. INR 1.30 H (0.87-1.13) POC Glucose 111 H (70-105) All other labs normal. Assessment and Plan This consult is 83-year-old patient with multiple medical issues including but not limited to dementia and confusion and recurrent hematuria. She also has COPD and apparent metastatic cancer with an unknown primary origin. Ultrasound and CT showed small pelvic mass. This mass does not appear to be ovarian in origin however is in the pelvic region. It is also quite small for what could be a potential GENERAL WAREHOUSE WORKER malignancy. However, we will perform a CA-125 to evaluate possibility of ovarian malignancy. In any case, it does not appear that the patient will be a good surgical candidate even if malignancy is present due to her multiple medical conditions. Thank you for this interesting consult
[2018-10-01] MEDS: NACL 0.9% 1000 ML 1,000 ML IV SCH ×2 (00:22→17:40)
[2018-10-01 07:37] LABS: INR 1.14 (0.87-1.13)
[2018-10-01 07:50] LABS: Calcium 8.6 mg/dL (8.4-10.2)
--- NOTE | 2018-10-01 09:32 | Consultation ---
History of Present Illness - Reason for Consult Consult date: 10/01/18 pulmonary nodules - History of Present Illness Patient with a history of dementia, prosthetic heart valve on Coumadin who p resented with a urinary tract infection was noted to have several approximately 1 cm in diameter pulmonary nodules on CT of the chest. Patient has no history of a primary cancer. Patient is resting comfortably at time of examination. Lengthy discussion with patient's son and [id number]. Past History Past Medical History: COPD, diabetes, hypertension, stroke, other (Urinary retention) Past Surgical History: valve replacement, Other (Back surgery') Social history: no significant social history Family history: hypertension Medications and Allergies Allergies Allergy/AdvReac Type Severity Reaction Status Date / Time acetaminophen [From Percocet] Allergy Swelling Verified 09/27/18 17:47 amitriptyline [From Elavil] Allergy Swelling Verified 09/27/18 17:47 Beta-Blockers Allergy Unknown Verified 09/27/18 17:47 (Beta-Adrenergic Bloc oxycodone [From Percocet] Allergy Swelling Verified 09/27/18 17:47 Home Medications Medication Instructions Recorded Confirmed Last Taken Type Aspirin [Adult Aspirin] 81 mg PO DAILY 09/27/18 09/27/18 Unknown History Calcium Carbonate [Calcium 600MG 600 mg PO BID 09/27/18 09/27/18 Unknown History TAB] Cholecalciferol Vit D3 [Vitamin D3 1,000 mg PO DAILY 09/27/18 09/27/18 Unknown History 1,000 UNIT TAB] Citalopram [Celexa] 10 mg PO DAILY 09/27/18 09/27/18 Unknown History Cyanocobalamin (Vitamin B-12) 500 mg PO DAILY 09/27/18 09/27/18 Unknown History [Vitamin B-12] Donepezil [Aricept] 5 mg PO QHS 09/27/18 09/27/18 Unknown History Famotidine [Pepcid] 20 mg PO BID 09/27/18 09/27/18 Unknown History Furosemide [Lasix TAB] 40 mg PO DAILY 09/27/18 09/27/18 Unknown History Gabapentin [Neurontin] 300 mg PO QHS 09/27/18 09/27/18 Unknown History Isosorbide Mononitrate 30 mg PO DAILY 09/27/18 09/27/18 Unknown History Memantine [Namenda] 10 mg PO BID 09/27/18 09/27/18 Unknown History Potassium Chloride [K-Dur] 10 mg PO DAILY 09/27/18 09/27/18 Unknown History Primidone [Mysoline] 50 mg PO QHS 09/27/18 09/27/18 Unknown History Warfarin [Coumadin] 2.5 mg PO QWEEK 09/27/18 09/27/18 Unknown History metFORMIN [Glucophage] 250 mg PO DAILY 09/27/18 09/27/18 Unknown History Active Meds: Active Medications Albuterol (Proventil) 2.5 mg IH Q4H PRN PRN Reason: Shortness Of Breath Aspirin (Halfprin Ec) 81 mg PO DAILY [facility] Last Admin: 09/30/18 09:42 Dose: 81 mg Documented by: Calcium Carbonate/Glycine (Calcium Carbonate) 648 mg PO BID [facility] Last Admin: 09/30/18 22:18 Dose: 648 mg Documented by: Cholecalciferol (Vitamin D3) 1,000 unit PO DAILY [facility] Last Admin: 09/30/18 09:44 Dose: 1,000 unit Documented by: Citalopram Hydrobromide (Celexa) 10 mg PO DAILY [facility] Last Admin: 09/30/18 09:42 Dose: 10 mg Documented by: Cyanocobalamin (Vitamin B-12) 500 mcg PO QDAY [facility] Last Admin: 09/30/18 09:43 Dose: 500 mcg Documented by: Donepezil HCl (Aricept) 5 mg PO QHS [facility] Last Admin: 09/30/18 22:18 Dose: 5 mg Documented by: Famotidine (Pepcid) 10 mg PO BID [facility] Last Admin: 09/30/18 22:18 Dose: 10 mg Documented by: Furosemide (Lasix) 40 mg PO DAILY [facility] Last Admin: 09/30/18 09:43 Dose: 40 mg Documented by: Gabapentin (Neurontin) 300 mg PO QHS [facility] Last Admin: 09/30/18 22:17 Dose: 300 mg Documented by: Sodium Chloride (Nacl 0.9% 1000 Ml) 1,000 mls @ 42 mls/hr IV DIRECT [facility] Last Admin: 10/01/18 00:22 Dose: 42 mls/hr Documented by: Ceftriaxone Sodium (Rocephin/Ns 1 Gm/50 Ml) 1 gm in 50 mls @ 100 mls/hr IV Q24H [facility]; Protocol Last Admin: 09/30/18 09:42 Dose: 100 mls/hr Documented by: Isosorbide Mononitrate (Imdur) 30 mg PO DAILY [facility] Last Admin: 09/30/18 09:44 Dose: 30 mg Documented by: Memantine (Namenda) 10 mg PO BID [facility] Last Admin: 09/30/18 22:17 Dose: 10 mg Documented by: Metformin HCl (Glucophage) 250 mg PO QAMDIAB [facility] Last Admin: 09/30/18 09:43 Dose: 250 mg Documented by: Ondansetron HCl (Zofran) 4 mg IV Q8H PRN PRN Reason: Nausea And Vomiting Primidone (Mysoline) 50 mg PO QHS [facility] Last Admin: 09/30/18 22:19 Dose: 50 mg Documented by: Sodium Chloride (Sodium Chloride Flush Syringe 10 Ml) 10 ml IV BID [facility] Last Admin: 09/30/18 09:44 Dose: 10 ml Documented by: Sodium Chloride (Sodium Chloride Flush Syringe 10 Ml) 10 ml IV PRN PRN PRN Reason: LINE FLUSH Warfarin Sodium (Coumadin) 2 mg PO DAILY@1700 [facility] Last Admin: 09/30/18 18:29 Dose: 2 mg Documented by: Review of Systems ROS unobtainable: due to mental status Exam - Constitutional Vitals: Temp Pulse Resp BP Pulse Ox 98.5 F 59 L 18 125/40 93 10/01/18 07:53 10/01/18 07:53 10/01/18 07:53 10/01/18 07:53 10/01/18 07:53 General appearance: Present: no acute distress - EENT Eyes: Present: EOM intact ENT: hearing intact - Neck Neck: Present: supple, normal ROM - Respiratory Respiratory effort: normal - Abdominal General gastrointestinal: Present: deferred - Rectal Rectal Exam: deferred - Psychiatric Psychiatric: cooperative Results - Labs CBC & Chem 7: 09/29/18 03:52 10/01/18 06:43 Labs: Abnormal lab results 10/01/18 10/01/18 Range/Units 06:43 06:43 INR 1.14 H (0.87-1.13) BUN 20 H (7-17) mg/dL Creatinine 1.4 H (0.7-1.2) mg/dL Glucose 101 H (65-100) mg/dL - Imaging and Cardiology CT scan - abdomen: report reviewed, image reviewed CT scan - chest: report reviewed, image reviewed Assessment and Plan Patient with a history of multiple approximately 1 cm in size pulmonary nodules in addition to multiple other medical comorbidities. Given the patient's COPD, anticoagulation state, dementia, and refusal of transfusions, we will order a PET/CT in an attempt to identify the primary in hopes that a more amenable target is identified for biopsy.
--- NOTE | 2018-10-01 10:20 | Progress Note ---
<NATHAN GONZALEZ - Last Filed: 10/01/18 10:17> Assessment and Plan Hematuria UTI Elevated D-dimer chest CTA reports bilateral pulmonary nodules suggestive of metastatic disease. No evidence of PE. Hx of lung cancer surgery in the past Hx of Urinary retention with fang catheter in place Hx of CAD with CABG in 1993 [facility] 09/2017 reports [place] vessel CAD, patent SVG to diagonal and patent SVG to OM. RICE was not used. Echocardiogram done 10/2017 showed a well preserved ejection fraction of 55%. Aortic Valve replacement -mechanical on warfarin; INR of 1.47 on presentation Hx of paroxysmal Afib Dementia Hypertension Diabetes Continue warfarin for mechanical aortic valve. Target INR of 2.5-3.5. Subjective Date of service: 10/01/18 Interval history: No cardiac complaints. INR of 1.14 today. Objective Vital Signs Temp Pulse Resp BP Pulse Ox 10/01/18 07:53 98.5 F 59 L 18 125/40 93 10/01/18 07:43 96 10/01/18 01:58 45 L 90 10/01/18 01:45 98.6 F 20 97/51 09/30/18 22:00 95 09/30/18 19:59 97.3 F L 56 L 20 127/43 92 09/30/18 12:55 97.7 F 72 20 115/37 92 - Physical Examination General: No Apparent Distress HEENT: Positive: PERRL Neck: Positive: trachea midline Neuro: Positive: Weakness Extremities: Absent: edema - Labs and Meds Coagulation 10/01/18 Range/Units 06:43 PT 14.3 (12.2-14.9) Sec. INR 1.14 H (0.87-1.13) Comprehensive Metabolic Panel 10/01/18 Range/Units 06:43 Sodium 140 (137-145) mmol/L Potassium 3.6 (3.6-5.0) mmol/L Chloride 100.1 (98-107) mmol/L Carbon Dioxide 30 (22-30) mmol/L BUN 20 H (7-17) mg/dL Creatinine 1.4 H (0.7-1.2) mg/dL Glucose 101 H (65-100) mg/dL Calcium 8.6 (8.4-10.2) mg/dL <WOEN LOZADA - Last Filed: 07/17/19 10:25> Assessment and Plan I have seen and evaluated the patient and agree with this assessment and plan. Patient has a history of coronary artery disease status post bypass surgery in 1993 with left heart catheterization in September 2017 showing a patent SVG to diagonal, and patent HEENT SVG to obtuse marginal. Continue current medical therapy for treatment of coronary artery disease. Patient also has a history of aortic valve replacement in the setting of atrial fibrillation. This patient has mechanical aortic valve, patient will necessarily continue anticoagulation with goal INR of 2.5-3.5. Objective Vital Signs Temp Pulse Resp BP Pulse Ox 10/01/18 07:53 98.5 F 59 L 18 125/40 93 10/01/18 07:43 96 10/01/18 01:58 45 L 90 10/01/18 01:45 98.6 F 20 97/51 09/30/18 22:00 95 09/30/18 19:59 97.3 F L 56 L 20 127/43 92 09/30/18 12:55 97.7 F 72 20 115/37 92 - Labs and Meds Coagulation 10/01/18 Range/Units 06:43 PT 14.3 (12.2-14.9) Sec. INR 1.14 H (0.87-1.13) Comprehensive Metabolic Panel 10/01/18 Range/Units 06:43 Sodium 140 (137-145) mmol/L Potassium 3.6 (3.6-5.0) mmol/L Chloride 100.1 (98-107) mmol/L Carbon Dioxide 30 (22-30) mmol/L BUN 20 H (7-17) mg/dL Creatinine 1.4 H (0.7-1.2) mg/dL Glucose 101 H (65-100) mg/dL Calcium 8.6 (8.4-10.2) mg/dL
[2018-10-01] MEDS: SODIUM CHLORIDE FLUSH SYRINGE 10 ML IV SCH (11:31)
[2018-10-01] MEDS: PEPCID PO SCH ×2 (11:32→22:27)
[2018-10-01] MEDS: LASIX PO SCH (11:33)
[2018-10-01] MEDS: VITAMIN D3 PO SCH (11:33)
[2018-10-01] MEDS: IMDUR PO SCH (11:33)
[2018-10-01] MEDS: GLUCOPHAGE PO SCH (11:34)
[2018-10-01] MEDS: HALFPRIN EC PO SCH (11:36)
[2018-10-01] MEDS: CALCIUM CARBONATE PO SCH ×2 (11:38→22:27)
[2018-10-01] MEDS: VITAMIN B-12 PO SCH (11:39)
[2018-10-01] MEDS: NAMENDA PO SCH ×2 (11:39→22:28)
[2018-10-01] MEDS: ROCEPHIN/NS 1 GM/50 ML 1 GM/50 ML BAG IV SCH (11:42)
--- NOTE | 2018-10-01 12:47 | Discharge Summary ---
Providers - Providers Date of Admission: 09/27/18 18:34 Attending physician: CHILANGO NICE MD 09/27/18 18:34 Consult to Case Management [CONS] Routine Services Needed at Discharge: Other Notified:: RICCI Rasheed Physician Instructions: Send out for SNF/Rehab Placement 09/27/18 18:54 Physical Therapy Evaluation and Treat [CONS] Routine Comment: Reason For Exam: weakness/ 09/28/18 11:49 Consult to Physician [CONS] Routine Comment: JOSEFINA Consulting Provider: ÓSCAR SORIA Physician Instructions: WAS NOTIFIED. Reason For Exam: mechanical aortic valve, recurrent fall 09/28/18 11:51 Consult to Case Management [CONS] Routine Services Needed at Discharge: Physical Therapy Waxing Machine Operator Notified:: RICCI Rasheed Physician Instructions: PLACEMENT 09/29/18 17:08 Consult to Physician [CONS] Routine Comment: spoke with reymundo jennings/ heriberto Consulting Provider: REYMUNDO GRADY Physician Instructions: Reason For Exam: adnexal mass 09/30/18 10:15 Consult to Physician [CONS] Routine Comment: called office / heriberto Consulting Provider: SHELDON KELLY Physician Instructions: family wants to know if it is cancer Reason For Exam: pulmonary nodules [facility] Condition: Stable Disposition: DC-30 STILL A PATIENT Time spent for discharge: 32 minutes Core Measure Documentation - Palliative Care Palliative Care/ Comfort Measures: Not Applicable - Core Measures Any of the following diagnoses?: none Exam - Physical Exam Narrative exam: Not in cardiopulmonary distress. The patient appeared well nourished and normally developed. Vital signs as documented. Head exam is unremarkable. No scleral icterus . Neck is without jugular venous distension, thyromegaly, or carotid bruits. Lungs are clear to auscultation. Cardiac exam reveals regular rate and Rhythm. Abdominal exam reveals normal bowel sounds, no masses, no organomegaly and no aortic enlargement. Extremities are nonedematous and both femoral and pedal pulses are normal. BIG DATA LEAD: Alert and oriented 3. No focal weakness. - Constitutional Vitals: Temp Pulse Resp BP Pulse Ox 98.5 F 66 18 137/57 93 10/01/18 07:53 10/01/18 11:33 10/01/18 07:53 10/01/18 11:33 10/01/18 07:53 Plan Activity: advance as tolerated Weight Bearing Status: Weight Bear as Tolerated Diet: diabetic Follow up with: WESTLEY OLIVA MD [Primary Care Provider] - 3-5 Days Forms: Warfarin Discharge Instruction
--- NOTE | 2018-10-01 12:52 | Progress Note ---
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 Pt is confused and unable to provide detailed history. Pt history provided by daughter and son who are at bedside during exam and interview. As per family, the patient initially complained of pain with urination and well as pain with urination over the past week, with worsening symptoms over the past 3 days with concomitant confusion, decreased interaction with family. Pt also experienced decreased ability to conduct activities of daily living, and increased bedbound status with worsening gait instability. Pt is currently unable to ambulate independently and maintain upright seated position. Family also reports shortness of breath and increased productive cough with production of clear sputum without relief of symptoms with increased nebulizer therapy. EMS notified, and uopn arrival the patient was found to be in distress and tra nsported to [facility]. Pt seen and evaluated in ED and found to have Encephalopathy, suspected UTI, COPD Exacerbation. Work up concerning for Metastic lung lesion - Discussed with personal care Nurse, patient had Lung surgery in the 80s - IR Consulted for possible biopsy and recommend O/P CT PET scan before the biopsy CT Head: No acute pathology CT chest: Multiple Pulmonary Nodule concerning for Metastatic Disease. Pelvic Ultrasound: Adnexal mass, concerning for enlarged lymphnode Acute Metabolic Encephalopathy with baseline Dementia although worsening COPD Acute Cystitis with no evidence of SEPSIS Debility Diabetes Mellitus Urinary Retention with chronic indwelling fang-Oupt work up in progress, Small pelvic mass - No intervention needed per SPORTS OFFICIAL Secondary coagulopathy with subtherapeutic INR AVR-[place], Mechanical valve >30 years ago - INR is 1.14 today and cardiology recommend to Keep the patient INR is therapeutic and will put a heparin bridge Dementia Hyperkalemia- corrected Anemia Inferior Rectus wall Hematoma Remote Hx of Lung CA PLAN Complex patient considering co-morbidites Considering finding in the lungs, Template Maker recommend this CT abdomen and pelvis which didn't show any mass. Pulmonary sign off SPORTS OFFICIAL consulted for further evaluation, Patient also with Hematuria Continue to Monitor H/H Continue coumadin, wth target INR OF 2-2.5 PER Cardiology considering risk assocaiate with possible thrombotic closure of mechanical valve if needed PT/OT eval due to recurrent falls, risk discussed with patient and family (Son and daughter in-law) Fall precautions Urine culture continue abx dvt/GI PROPHY Disposition; Continue inpatient care until INR is therapeutic History Interval history: Patient was seen and evaluated this morning. Patient said she's feeling weak. Hospitalist Physical - Physical exam Narrative exam: Not in cardiopulmonary distress. The patient appeared well nourished and normally developed. Vital signs as documented. Head exam is unremarkable. No scleral icterus . Neck is without jugular venous distension, thyromegaly, or carotid bruits. Lungs are clear to auscultation. Cardiac exam reveals regular rate and Rhythm. Abdominal exam reveals normal bowel sounds, no masses, no organomegaly and no aortic enlargement. Extremities are nonedematous and both femoral and pedal pulses are normal. DIGITAL CONTENT COORDINATOR: Alert and oriented 3. No focal weakness. - Constitutional Vitals: Temp Pulse Resp BP Pulse Ox 98.5 F 66 18 137/57 93 10/01/18 07:53 10/01/18 11:33 10/01/18 07:53 10/01/18 11:33 10/01/18 07:53 General appearance: Present: no acute distress Results - Labs CBC & Chem 7: 09/29/18 03:52 10/01/18 06:43 Labs: Laboratory Last Values WBC 8.8 K/mm3 (4.5-11.0) 09/29/18 03:52 RBC 3.35 M/mm3 (3.65-5.03) L 09/29/18 03:52 Hgb 9.7 gm/dl (10.1-14.3) L 09/29/18 03:52 Hct 29.4 % (30.3-42.9) L 09/29/18 03:52 MCV 88 fl (79-97) 09/29/18 03:52 MCH 29 pg (28-32) 09/29/18 03:52 MCHC 33 % (30-34) 09/29/18 03:52 RDW 15.0 % (13.2-15.2) 09/29/18 03:52 Plt Count 386 K/mm3 (140-440) 09/29/18 03:52 Lymph % (Auto) 25.2 % (13.4-35.0) 09/27/18 19:52 [place] % (Auto) 6.6 % (0.0-7.3) 09/27/18 19:52 Eos % (Auto) 3.5 % (0.0-4.3) 09/27/18 19:52 Baso % (Auto) 0.3 % (0.0-1.8) 09/27/18 19:52 Lymph # 2.3 K/mm3 (1.2-5.4) 09/27/18 19:52 [place] # 0.6 K/mm3 (0.0-0.8) 09/27/18 19:52 Eos # 0.3 K/mm3 (0.0-0.4) 09/27/18 19:52 Baso # 0.0 K/mm3 (0.0-0.1) 09/27/18 19:52 Seg Neutrophils % 64.4 % (40.0-70.0) 09/27/18 19:52 Seg Neutrophils # 5.8 K/mm3 (1.8-7.7) 09/27/18 19:52 PT 14.3 Sec. (12.2-14.9) 10/01/18 06:43 INR 1.14 (0.87-1.13) H 10/01/18 06:43 408.99 ng/mlDDU (0-234) H 09/27/18 19:52 Sodium 140 mmol/L (137-145) 10/01/18 06:43 Potassium 3.6 mmol/L (3.6-5.0) 10/01/18 06:43 Chloride 100.1 mmol/L (98-107) 10/01/18 06:43 Carbon Dioxide 30 mmol/L (22-30) 10/01/18 06:43 14 mmol/L 10/01/18 06:43 BUN 20 mg/dL (7-17) H 10/01/18 06:43 1.4 mg/dL (0.7-1.2) H 10/01/18 06:43 Estimated GFR 36 ml/min 10/01/18 06:43 14 % 10/01/18 06:43 Glucose 101 mg/dL (65-100) H 10/01/18 06:43 POC Glucose 111 (70-105) H 09/30/18 08:12 Calcium 8.6 mg/dL (8.4-10.2) 10/01/18 06:43 0.20 mg/dL (0.1-1.2) 09/27/18 19:52 AST 17 units/L (5-40) 09/27/18 19:52 ALT 8 units/L (7-56) 09/27/18 19:52 58 units/L (35-129) 09/27/18 19:52 7.0 g/dL (6.3-8.2) 09/27/18 19:52 3.4 g/dL (3.9-5) L 09/27/18 19:52 0.9 % 09/27/18 19:52 TSH 3.420 mlU/mL (0.270-4.200) 09/27/18 19:52 Free T4 0.96 ng/dL (0.76-1.46) 09/27/18 19:52 Yellow (Yellow) 09/27/18 19:28 Cloudy (Clear) 09/27/18 19:28 5.0 (5.0-7.0) 09/27/18 19:28 Ur Specific [place] 1.016 (1.003-1.030) 09/27/18 19:28 30 mg/dl mg/dL (Negative) 09/27/18 19:28 Neg mg/dL (Negative) 09/27/18 19:28 Neg mg/dL (Negative) 09/27/18 19:28 Lg (Negative) 09/27/18 19:28 Neg (Negative) 09/27/18 19:28 Neg (Negative) 09/27/18 19:28 < 2.0 mg/dL (<2.0) 09/27/18 19:28 Ur Leukocyte Esterase Mod (Negative) 09/27/18 19:28 58.0 /HPF (0.0-6.0) H 09/27/18 19:28 > 182.0 /HPF (0.0-6.0) 09/27/18 19:28 U Epithel Cells (Auto) 3.0 /HPF (0-13.0) 09/27/18 19:28 1+ /HPF (Negative) 09/27/18 19:28 Hyaline Casts 3 /LPF 09/27/18 19:28 Few /HPF 09/27/18 19:28 2+ /HPF 09/27/18 19:28 Active Medications - Current Medications Current Medications: Generic Name Dose Route Start Last Admin Trade Name Freq PRN Reason Stop Dose Admin Albuterol 2.5 mg 09/27/18 18:34 Proventil IH Q4H PRN Shortness Of Breath Aspirin 81 mg 09/28/18 10:00 10/01/18 11:36 Halfprin Ec PO 81 mg DAILY LEONOR Administration Calcium Carbonate/Glycine 648 mg 09/28/18 22:00 10/01/18 11:38 Calcium Carbonate PO 648 mg BID LEONOR Administration Cholecalciferol 1,000 unit 09/28/18 10:00 10/01/18 11:33 Vitamin D3 PO 1,000 unit DAILY LEONOR Administration Citalopram Hydrobromide 10 mg 09/28/18 10:00 09/30/18 09:42 Celexa PO 10 mg DAILY LEONOR Administration Cyanocobalamin 500 mcg 09/28/18 12:00 10/01/18 11:39 Vitamin B-12 PO 500 mcg QDAY LEONOR Administration Donepezil HCl 5 mg 09/28/18 22:00 09/30/18 22:18 Aricept PO 5 mg QHS LEONOR Administration Famotidine 10 mg 09/28/18 11:00 10/01/18 11:32 Pepcid PO 10 mg BID LEONOR Administration Furosemide 40 mg 09/28/18 10:00 10/01/18 11:33 Lasix PO 40 mg DAILY LEONOR Administration Gabapentin 300 mg 09/28/18 22:00 09/30/18 22:17 Neurontin PO 300 mg QHS LEONOR Administration Sodium Chloride 1,000 mls @ 42 mls/hr 09/27/18 19:00 10/01/18 00:22 Nacl 0.9% 1000 Ml IV 42 mls/hr DIRECT LEONOR Administration Ceftriaxone Sodium 1 gm in 50 mls @ 100 mls/hr 09/28/18 10:00 10/01/18 11:42 Rocephin/Ns 1 Gm/50 Ml IV 100 mls/hr Q24H LEONOR Administration Protocol Isosorbide Mononitrate 30 mg 09/28/18 11:00 10/01/18 11:33 Imdur PO 30 mg DAILY LEONOR Administration Memantine 10 mg 09/28/18 10:00 10/01/18 11:39 Namenda PO 10 mg BID LEONOR Administration Metformin HCl 250 mg 09/28/18 10:00 10/01/18 11:34 Glucophage PO 250 mg QAMDIAB LEONOR Administration Ondansetron HCl 4 mg 09/27/18 18:34 Zofran IV Q8H PRN Nausea And Vomiting Primidone 50 mg 09/28/18 22:00 09/30/18 22:19 Mysoline PO 50 mg QHS LEONOR Administration Sodium Chloride 10 ml 09/27/18 22:00 10/01/18 11:31 Sodium Chloride Flush Syringe 10 Ml IV 10 ml BID LEONOR Administration Sodium Chloride 10 ml 09/27/18 18:34 Sodium Chloride Flush Syringe 10 Ml IV PRN PRN LINE FLUSH Warfarin Sodium 2 mg 09/30/18 17:00 09/30/18 18:29 Coumadin PO 2 mg DAILY@1700 LEONOR Administration Nutrition/Malnutrition Assess - Dietary Evaluation Nutrition/Malnutrition Findings: Nutrition Notes Start: 09/29/18 15:12 Freq: Status: Active Protocol: Document 09/29/18 15:12 OH (Rec: 09/29/18 15:14 OH [id number]) Nutrition Notes Initial or Follow up Brief Note Subjective/Other Information Coumadin education request ( DNI). Pt. currently receiving coumadin and monitored by MD > 10 years. Nutrition Intervention Revisit per MD consult or patient Sign Off request: Additional Comments No further coumadin education required at this time.
[2018-10-01] MEDS: celeXA PO SCH (14:05)
[2018-10-01 14:49] LABS: Hematocrit 29.6 % (30.3-42.9); Hemoglobin 9.9 gm/dl (10.1-14.3)
[2018-10-01 14:59] LABS: INR 1.2 (0.87-1.13)
[2018-10-01 15:00] LABS: Partial Thromboplastin Time 29.7 Sec. (24.2-36.6)
--- NOTE | 2018-10-01 17:03 | Consultation ---
History of Present Illness - Reason for Consult Consult date: 10/01/18 - History of Present Illness 83 YO Female with COPD,AVR with mechanical valve on Coumadin, Debility, Dementia, Urinary Retention with indwelling fang catheter presents to ED for evaluation. Pt was confused and unable to provide detailed history. Pt history provided by daughter and son who are at bedside during exam and interview. As per family, the patient initially complained of pain with urination and well as pain with urination over the past week, with worsening symptoms over the past 3 days with concomitant confusion, decreased interaction with family. Pt also experienced decreased ability to conduct activities of daily living, and increased bedbound status with worsening gait instability. Pt is currently un able to ambulate independently and maintain upright seated position. Family also reports shortness of breath and increased productive cough with production of clear sputum without relief of symptoms with increased nebulizer therapy. EMS notified, and uopn arrival the patient was found to be in distress and transported to [facility]. Pt seen and evaluated in ED and found to have Encephalopathy, suspected UTI, COPD Exacerbation. BACK SURGERY X 8/ VALVE SURGERY / LUNG CA SURGERY pt seen in my office 09-22-18---- retention and needs outpt urodynamics pt also wants to go to assisted living - primary service to arrange abd soft fang draining CTAP - no acute gu issues, small non obstructing kidney stone A/P urinary retention will arrange outpt urodynamics discussed with fmaily at bedside Past History Past Medical History: COPD, diabetes, hypertension, stroke, other (Urinary retention) Past Surgical History: valve replacement, Other (Back surgery') Social history: no significant social history Family history: hypertension Medications and Allergies Allergies Allergy/AdvReac Type Severity Reaction Status Date / Time acetaminophen [From Percocet] Allergy Swelling Verified 09/27/18 17:47 amitriptyline [From Elavil] Allergy Swelling Verified 09/27/18 17:47 Beta-Blockers Allergy Unknown Verified 09/27/18 17:47 (Beta-Adrenergic Bloc oxycodone [From Percocet] Allergy Swelling Verified 09/27/18 17:47 Home Medications Medication Instructions Recorded Confirmed Last Taken Type Aspirin [Adult Aspirin] 81 mg PO DAILY 09/27/18 09/27/18 Unknown History Calcium Carbonate [Calcium 600MG 600 mg PO BID 09/27/18 09/27/18 Unknown History TAB] Cholecalciferol Vit D3 [Vitamin D3 1,000 mg PO DAILY 09/27/18 09/27/18 Unknown History 1,000 UNIT TAB] Citalopram [Celexa] 10 mg PO DAILY 09/27/18 09/27/18 Unknown History Cyanocobalamin (Vitamin B-12) 500 mg PO DAILY 09/27/18 09/27/18 Unknown History [Vitamin B-12] Donepezil [Aricept] 5 mg PO QHS 09/27/18 09/27/18 Unknown History Famotidine [Pepcid] 20 mg PO BID 09/27/18 09/27/18 Unknown History Furosemide [Lasix TAB] 40 mg PO DAILY 09/27/18 09/27/18 Unknown History Gabapentin [Neurontin] 300 mg PO QHS 09/27/18 09/27/18 Unknown History Isosorbide Mononitrate 30 mg PO DAILY 09/27/18 09/27/18 Unknown History Memantine [Namenda] 10 mg PO BID 09/27/18 09/27/18 Unknown History Potassium Chloride [K-Dur] 10 mg PO DAILY 09/27/18 09/27/18 Unknown History Primidone [Mysoline] 50 mg PO QHS 09/27/18 09/27/18 Unknown History Warfarin [Coumadin] 2.5 mg PO QWEEK 09/27/18 09/27/18 Unknown History metFORMIN [Glucophage] 250 mg PO DAILY 09/27/18 09/27/18 Unknown History Active Meds: Active Medications Albuterol (Proventil) 2.5 mg IH Q4H PRN PRN Reason: Shortness Of Breath Aspirin (Halfprin Ec) 81 mg PO DAILY [facility] Last Admin: 10/01/18 11:36 Dose: 81 mg Documented by: Calcium Carbonate/Glycine (Calcium Carbonate) 648 mg PO BID [facility] Last Admin: 10/01/18 11:38 Dose: 648 mg Documented by: Cholecalciferol (Vitamin D3) 1,000 unit PO DAILY [facility] Last Admin: 10/01/18 11:33 Dose: 1,000 unit Documented by: Citalopram Hydrobromide (Celexa) 10 mg PO DAILY [facility] Last Admin: 10/01/18 14:05 Dose: Not Given Documented by: Cyanocobalamin (Vitamin B-12) 500 mcg PO QDAY [facility] Last Admin: 10/01/18 11:39 Dose: 500 mcg Documented by: Donepezil HCl (Aricept) 5 mg PO QHS [facility] Last Admin: 09/30/18 22:18 Dose: 5 mg Documented by: Famotidine (Pepcid) 10 mg PO BID [facility] Last Admin: 10/01/18 11:32 Dose: 10 mg Documented by: Furosemide (Lasix) 40 mg PO DAILY [facility] Last Admin: 10/01/18 11:33 Dose: 40 mg Documented by: Gabapentin (Neurontin) 300 mg PO QHS [facility] Last Admin: 09/30/18 22:17 Dose: 300 mg Documented by: Sodium Chloride (Nacl 0.9% 1000 Ml) 1,000 mls @ 42 mls/hr IV DIRECT [facility] Last Admin: 10/01/18 00:22 Dose: 42 mls/hr Documented by: Ceftriaxone Sodium (Rocephin/Ns 1 Gm/50 Ml) 1 gm in 50 mls @ 100 mls/hr IV Q24H [facility]; Protocol Last Infusion: 10/01/18 14:06 Dose: Infused Documented by: Heparin Sodium/Sodium Chloride (Heparin/ 0.45% Nacl-25,000 Unit/500 Ml) 25,000 unit in 500 mls @ 20 mls/hr IV TITR [facility]; Protocol Isosorbide Mononitrate (Imdur) 30 mg PO DAILY [facility] Last Admin: 10/01/18 11:33 Dose: 30 mg Documented by: Memantine (Namenda) 10 mg PO BID [facility] Last Admin: 10/01/18 11:39 Dose: 10 mg Documented by: Metformin HCl (Glucophage) 250 mg PO QAMDIAB [facility] Last Admin: 10/01/18 11:34 Dose: 250 mg Documented by: Ondansetron HCl (Zofran) 4 mg IV Q8H PRN PRN Reason: Nausea And Vomiting Primidone (Mysoline) 50 mg PO QHS [facility] Last Admin: 09/30/18 22:19 Dose: 50 mg Documented by: Sodium Chloride (Sodium Chloride Flush Syringe 10 Ml) 10 ml IV BID [facility] Last Admin: 10/01/18 11:31 Dose: 10 ml Documented by: Sodium Chloride (Sodium Chloride Flush Syringe 10 Ml) 10 ml IV PRN PRN PRN Reason: LINE FLUSH Warfarin Sodium (Coumadin) 2 mg PO DAILY@1700 [facility] Last Admin: 09/30/18 18:29 Dose: 2 mg Documented by: Exam - Constitutional Vitals: Temp Pulse Resp BP Pulse Ox 98.5 F 63 18 114/47 92 10/01/18 13:41 10/01/18 13:41 10/01/18 13:41 10/01/18 13:41 10/01/18 13:41 Results - Labs CBC & Chem 7: 10/01/18 14:21 10/01/18 06:43 Labs: Abnormal lab results 10/01/18 10/01/18 10/01/18 Range/Units 06:43 06:43 14:21 Hgb 9.9 L (10.1-14.3) gm/dl Hct 29.6 L (30.3-42.9) % INR 1.14 H (0.87-1.13) BUN 20 H (7-17) mg/dL Creatinine 1.4 H (0.7-1.2) mg/dL Glucose 101 H (65-100) mg/dL 10/01/18 Range/Units 14:21 Hgb (10.1-14.3) gm/dl Hct (30.3-42.9) % INR 1.20 H (0.87-1.13) BUN (7-17) mg/dL Creatinine (0.7-1.2) mg/dL Glucose (65-100) mg/dL
[2018-10-01] MEDS: COUMADIN PO SCH (17:38)
[2018-10-01] MEDS: HEPARIN/ 0.45% NACL-25,000 UNIT/500 ML 25,000 UNIT/500 ML BAG IV SCH (20:52)
[2018-10-01] MEDS: ARICEPT PO SCH (22:27)
[2018-10-01] MEDS: NEURONTIN PO SCH (22:27)
[2018-10-01] MEDS: MYSOLINE PO SCH (22:28)
[2018-10-02 05:14] LABS: INR 1.24 (0.87-1.13)
[2018-10-02] MEDS: SODIUM CHLORIDE FLUSH SYRINGE 10 ML IV SCH ×3 (08:12→21:59)
--- NOTE | 2018-10-02 08:48 | Progress Note ---
Assessment and Plan Hematuria UTI Elevated D-dimer chest CTA reports bilateral pulmonary nodules suggestive of metastatic disease. No evidence of PE. Hx of lung cancer surgery in the past Hx of Urinary retention with fang catheter in place Hx of CAD with CABG in 1993 [facility] 09/2017 reports [place] vessel CAD, patent SVG to diagonal and patent SVG to OM. RICE was not used. Echocardiogram done 10/2017 showed a well preserved ejection fraction of 55%. Aortic Valve replacement -mechanical on warfarin; INR of 1.47 on presentation Hx of paroxysmal Afib Dementia Hypertension Diabetes Continue warfarin with IV heparin bridge for mechanical aortic valve until target INR is reached. Subjective Date of service: 10/02/18 Interval history: No cardiac complaints. INR of 1.24 today. Objective Vital Signs Temp Pulse Resp BP Pulse Ox 10/02/18 07:50 97.3 F L 53 L 18 137/54 100 10/02/18 02:14 97.5 F L 57 L 18 143/61 99 10/01/18 19:46 98.4 F 44 L 18 141/60 96 10/01/18 13:41 98.5 F 63 18 114/47 92 10/01/18 11:33 66 137/57 10/01/18 11:29 64 18 137/57 94 - Physical Examination General: No Apparent Distress HEENT: Positive: PERRL Neck: Positive: trachea midline Cardiac: Positive: Reg Rate and Rhythm Lungs: Positive: Decreased Breath Sounds Neuro: Positive: Weakness Extremities: Absent: edema - Labs and Meds Coagulation 10/01/18 10/02/18 Range/Units 14:21 04:40 PT 14.9 15.3 H (12.2-14.9) Sec. INR 1.20 H 1.24 H (0.87-1.13) APTT 29.7 (24.2-36.6) Sec. CBC 10/01/18 Range/Units 14:21 Hgb 9.9 L (10.1-14.3) gm/dl Hct 29.6 L (30.3-42.9) % Plt Count 360 (140-440) K/mm3
[2018-10-02] MEDS: ROCEPHIN/NS 1 GM/50 ML 1 GM/50 ML BAG IV SCH (09:13)
[2018-10-02] MEDS: celeXA PO SCH (09:19)
[2018-10-02] MEDS: LASIX PO SCH (09:21)
[2018-10-02] MEDS: VITAMIN D3 PO SCH (09:21)
[2018-10-02] MEDS: IMDUR PO SCH (09:22)
[2018-10-02] MEDS: HALFPRIN EC PO SCH (09:22)
[2018-10-02] MEDS: NAMENDA PO SCH ×2 (09:26→21:53)
[2018-10-02] MEDS: PEPCID PO SCH ×2 (09:27→21:52)
[2018-10-02] MEDS: CALCIUM CARBONATE PO SCH ×2 (09:27→21:53)
[2018-10-02] MEDS: VITAMIN B-12 PO SCH (09:27)
[2018-10-02] MEDS ORDERED: MILK OF MAGNESIA PO PRN (11:41)
--- NOTE | 2018-10-02 15:28 | Progress Note ---
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 Pt is confused and unable to provide detailed history. Pt history provided by daughter and son who are at bedside during exam and interview. As per family, the patient initially complained of pain with urination and well as pain with urination over the past week, with worsening symptoms over the past 3 days with concomitant confusion, decreased interaction with family. Pt also experienced decreased ability to conduct activities of daily living, and increased bedbound status with worsening gait instability. Pt is currently unable to ambulate independently and maintain upright seated position. Family also reports shortness of breath and increased productive cough with production of clear sputum without relief of symptoms with increased nebulizer therapy. EMS notified, and uopn arrival the patient was found to be in distress and tra nsported to [facility]. Pt seen and evaluated in ED and found to have Encephalopathy, suspected UTI, COPD Exacerbation. Work up concerning for Metastic lung lesion - Discussed with personal care Nurse, patient had Lung surgery in the 80s - IR Consulted for possible biopsy and recommend O/P CT PET scan before the biopsy CT Head: No acute pathology CT chest: Multiple Pulmonary Nodule concerning for Metastatic Disease. Pelvic Ultrasound: Adnexal mass, concerning for enlarged lymphnode Acute Metabolic Encephalopathy with baseline Dementia although worsening COPD Acute Cystitis with no evidence of SEPSIS Debility Diabetes Mellitus Urinary Retention with chronic indwelling fang-Oupt work up in progress, Small pelvic mass - No intervention needed per TIRE MAINTENANCE TECHNICIAN Secondary coagulopathy with subtherapeutic INR AVR-[facility], Mechanical valve >30 years ago - INR is 1.14 today and cardiology recommend to Keep the patient INR is therapeutic and will put a heparin bridge Dementia Hyperkalemia- corrected Anemia Inferior Rectus wall Hematoma Remote Hx of Lung CA PLAN Complex patient considering co-morbidites Considering finding in the lungs, [employer] Mortiser Operator recommend this CT abdomen and pelvis which didn't show any mass. Pulmonary sign off TIRE MAINTENANCE TECHNICIAN consulted for further evaluation, Patient also with Hematuria Continue to Monitor H/H Continue coumadin, wth target INR OF 2-2.5 PER Cardiology considering risk assocaiate with possible thrombotic closure of mechanical valve if needed PT/OT eval due to recurrent falls, risk discussed with patient and family (Son and daughter in-law) Fall precautions Urine culture continue abx dvt/GI PROPHY Disposition; Continue inpatient care until INR is therapeutic History Interval history: Patient was seen and evaluated this morning. Patient said she's feeling weak and complains about fang catheter. Hospitalist Physical - Physical exam Narrative exam: Not in cardiopulmonary distress. The patient appeared well nourished and normally developed. Vital signs as documented. Head exam is unremarkable. No scleral icterus . Neck is without jugular venous distension, thyromegaly, or carotid bruits. Lungs are clear to auscultation. Cardiac exam reveals regular rate and Rhythm. Abdominal exam reveals normal bowel sounds. Extremities are nonedematous and both femoral and pedal pulses are normal. patient is on fang catheter. ABRASIVE SAWYER: Alert and oriented 3. No focal weakness. - Constitutional Vitals: Temp Pulse Resp BP Pulse Ox 97.8 F 61 18 127/56 94 10/02/18 13:49 10/02/18 13:49 10/02/18 13:49 10/02/18 13:49 10/02/18 13:49 General appearance: Present: no acute distress Results - Labs CBC & Chem 7: 10/01/18 14:21 10/01/18 06:43 Labs: Laboratory Last Values WBC 8.8 K/mm3 (4.5-11.0) 09/29/18 03:52 RBC 3.35 M/mm3 (3.65-5.03) L 09/29/18 03:52 Hgb 9.9 gm/dl (10.1-14.3) L 10/01/18 14:21 Hct 29.6 % (30.3-42.9) L 10/01/18 14:21 MCV 88 fl (79-97) 09/29/18 03:52 MCH 29 pg (28-32) 09/29/18 03:52 MCHC 33 % (30-34) 09/29/18 03:52 RDW 15.0 % (13.2-15.2) 09/29/18 03:52 Plt Count 360 K/mm3 (140-440) 10/01/18 14:21 Lymph % (Auto) 25.2 % (13.4-35.0) 09/27/18 19:52 [place] % (Auto) 6.6 % (0.0-7.3) 09/27/18 19:52 Eos % (Auto) 3.5 % (0.0-4.3) 09/27/18 19:52 Baso % (Auto) 0.3 % (0.0-1.8) 09/27/18 19:52 Lymph # 2.3 K/mm3 (1.2-5.4) 09/27/18 19:52 [place] # 0.6 K/mm3 (0.0-0.8) 09/27/18 19:52 Eos # 0.3 K/mm3 (0.0-0.4) 09/27/18 19:52 Baso # 0.0 K/mm3 (0.0-0.1) 09/27/18 19:52 Seg Neutrophils % 64.4 % (40.0-70.0) 09/27/18 19:52 Seg Neutrophils # 5.8 K/mm3 (1.8-7.7) 09/27/18 19:52 PT 15.3 Sec. (12.2-14.9) H 10/02/18 04:40 INR 1.24 (0.87-1.13) H 10/02/18 04:40 APTT 29.7 Sec. (24.2-36.6) 10/01/18 14:21 408.99 ng/mlDDU (0-234) H 09/27/18 19:52 Heparin Anti-Xa Level 0.20 U.I./ml (0.3-0.7) L 10/02/18 04:40 Sodium 140 mmol/L (137-145) 10/01/18 06:43 Potassium 3.6 mmol/L (3.6-5.0) 10/01/18 06:43 Chloride 100.1 mmol/L (98-107) 10/01/18 06:43 Carbon Dioxide 30 mmol/L (22-30) 10/01/18 06:43 14 mmol/L 10/01/18 06:43 BUN 20 mg/dL (7-17) H 10/01/18 06:43 1.4 mg/dL (0.7-1.2) H 10/01/18 06:43 Estimated GFR 36 ml/min 10/01/18 06:43 14 % 10/01/18 06:43 Glucose 101 mg/dL (65-100) H 10/01/18 06:43 POC Glucose 139 (70-105) H 10/01/18 16:55 Calcium 8.6 mg/dL (8.4-10.2) 10/01/18 06:43 0.20 mg/dL (0.1-1.2) 09/27/18 19:52 AST 17 units/L (5-40) 09/27/18 19:52 ALT 8 units/L (7-56) 09/27/18 19:52 58 units/L (35-129) 09/27/18 19:52 7.0 g/dL (6.3-8.2) 09/27/18 19:52 3.4 g/dL (3.9-5) L 09/27/18 19:52 0.9 % 09/27/18 19:52 TSH 3.420 mlU/mL (0.270-4.200) 09/27/18 19:52 Free T4 0.96 ng/dL (0.76-1.46) 09/27/18 19:52 Yellow (Yellow) 09/27/18 19:28 Cloudy (Clear) 09/27/18 19:28 5.0 (5.0-7.0) 09/27/18 19:28 Ur Specific [place] 1.016 (1.003-1.030) 09/27/18 19:28 30 mg/dl mg/dL (Negative) 09/27/18 19:28 Neg mg/dL (Negative) 09/27/18 19:28 Neg mg/dL (Negative) 09/27/18 19:28 Lg (Negative) 09/27/18 19:28 Neg (Negative) 09/27/18 19:28 Neg (Negative) 09/27/18 19:28 < 2.0 mg/dL (<2.0) 09/27/18 19:28 Ur Leukocyte Esterase Mod (Negative) 09/27/18 19:28 58.0 /HPF (0.0-6.0) H 09/27/18 19:28 > 182.0 /HPF (0.0-6.0) 09/27/18 19:28 U Epithel Cells (Auto) 3.0 /HPF (0-13.0) 09/27/18 19:28 1+ /HPF (Negative) 09/27/18 19:28 Hyaline Casts 3 /LPF 09/27/18 19:28 Few /HPF 09/27/18 19:28 2+ /HPF 09/27/18 19:28 Active Medications - Current Medications Current Medications: Generic Name Dose Route Start Last Admin Trade Name Don PRN Reason Stop Dose Admin Albuterol 2.5 mg 09/27/18 18:34 Proventil IH Q4H PRN Shortness Of Breath Aspirin 81 mg 09/28/18 10:00 10/02/18 09:22 Halfprin Ec PO 81 mg DAILY LEONOR Administration Calcium Carbonate/Glycine 648 mg 09/28/18 22:00 10/02/18 09:27 Calcium Carbonate PO 648 mg BID LEONOR Administration Cholecalciferol 1,000 unit 09/28/18 10:00 10/02/18 09:21 Vitamin D3 PO 1,000 unit DAILY LEONOR Administration Citalopram Hydrobromide 10 mg 09/28/18 10:00 10/02/18 09:19 Celexa PO 10 mg DAILY LEONOR Administration Cyanocobalamin 500 mcg 09/28/18 12:00 10/02/18 09:27 Vitamin B-12 PO 500 mcg QDAY LEONOR Administration Donepezil HCl 5 mg 09/28/18 22:00 10/01/18 22:27 Aricept PO 5 mg QHS LEONOR Administration Famotidine 10 mg 09/28/18 11:00 10/02/18 09:27 Pepcid PO 10 mg BID LEONOR Administration Furosemide 40 mg 09/28/18 10:00 10/02/18 09:21 Lasix PO 40 mg DAILY LEONOR Administration Gabapentin 300 mg 09/28/18 22:00 10/01/18 22:27 Neurontin PO 300 mg QHS LEONOR Administration Sodium Chloride 1,000 mls @ 42 mls/hr 09/27/18 19:00 10/01/18 17:40 Nacl 0.9% 1000 Ml IV 42 mls/hr DIRECT LEONOR Administration Ceftriaxone Sodium 1 gm in 50 mls @ 100 mls/hr 09/28/18 10:00 10/02/18 09:13 Rocephin/Ns 1 Gm/50 Ml IV 100 mls/hr Q24H LEONOR Administration Protocol Heparin Sodium/Sodium Chloride 25,000 unit in 500 mls @ 20 mls/hr 10/01/18 13:00 10/02/18 06:12 Heparin/ 0.45% Nacl-25,000 Unit/500 Ml IV 1,000 units/hr TITR LEONOR 20 mls/hr Titration Protocol 1,000 UNITS/HR Isosorbide Mononitrate 30 mg 09/28/18 11:00 10/02/18 09:22 Imdur PO 30 mg DAILY LEONOR Administration Magnesium Hydroxide 30 ml 10/02/18 11:41 10/02/18 11:56 Milk Of Magnesia PO 30 ml QDAY PRN Administration constipation Memantine 10 mg 09/28/18 10:00 10/02/18 09:26 Namenda PO 10 mg BID LEONOR Administration Metformin HCl 250 mg 09/28/18 10:00 10/01/18 11:34 Glucophage PO 250 mg QAMDIAB LEONOR Administration Ondansetron HCl 4 mg 09/27/18 18:34 Zofran IV Q8H PRN Nausea And Vomiting Primidone 50 mg 09/28/18 22:00 10/01/18 22:28 Mysoline PO 50 mg QHS LEONOR Administration Sodium Chloride 10 ml 09/27/18 22:00 10/02/18 09:28 Sodium Chloride Flush Syringe 10 Ml IV 10 ml BID LEONOR Administration Sodium Chloride 10 ml 09/27/18 18:34 Sodium Chloride Flush Syringe 10 Ml IV PRN PRN LINE FLUSH Warfarin Sodium 5 mg 10/02/18 17:00 Coumadin PO 10/05/18 16:59 DAILY@1700 LEONOR Protocol Warfarin Sodium 2.5 mg 10/05/18 17:00 Coumadin PO DAILY@1700 [facility] Protocol Nutrition/Malnutrition Assess - Dietary Evaluation Nutrition/Malnutrition Findings: Nutrition Notes Start: 09/29/18 15:12 Freq: Status: Active Protocol: Document 09/29/18 15:12 OH (Rec: 09/29/18 15:14 OH [id number]) Nutrition Notes Initial or Follow up Brief Note Subjective/Other Information Coumadin education request ( DNI). Pt. currently receiving coumadin and monitored by MD > 10 years. Nutrition Intervention Revisit per MD consult or patient Sign Off request: Additional Comments No further coumadin education required at this time.
[2018-10-02] MEDS ORDERED: COUMADIN PO SCH (17:00)
[2018-10-02] MEDS: COUMADIN PO SCH (17:08)
[2018-10-02] MEDS: NEURONTIN PO SCH (21:52)
[2018-10-02] MEDS: MYSOLINE PO SCH (21:53)
[2018-10-02] MEDS: ARICEPT PO SCH (21:53)
[2018-10-03] MEDS: HEPARIN/ 0.45% NACL-25,000 UNIT/500 ML 25,000 UNIT/500 ML BAG IV SCH (01:15)
[2018-10-03 05:22] LABS: Hemoglobin 10.2 gm/dl (10.1-14.3)
[2018-10-03 05:27] LABS: INR 1.33 (0.87-1.13)
[2018-10-03] MEDS: HALFPRIN EC PO SCH (09:41)
[2018-10-03] MEDS: celeXA PO SCH (09:41)
[2018-10-03] MEDS: PEPCID PO SCH ×2 (09:41→22:25)
[2018-10-03] MEDS: NAMENDA PO SCH ×2 (09:42→22:26)
[2018-10-03] MEDS: IMDUR PO SCH (09:42)
[2018-10-03] MEDS: VITAMIN D3 PO SCH (09:43)
[2018-10-03] MEDS: ROCEPHIN/NS 1 GM/50 ML 1 GM/50 ML BAG IV SCH (09:43)
[2018-10-03] MEDS: CALCIUM CARBONATE PO SCH ×2 (09:43→22:26)
[2018-10-03] MEDS: VITAMIN B-12 PO SCH (09:45)
[2018-10-03] MEDS: SODIUM CHLORIDE FLUSH SYRINGE 10 ML IV SCH ×2 (09:45→22:00)
[2018-10-03] MEDS: LASIX PO SCH (09:46)
--- NOTE | 2018-10-03 10:36 | Progress Note ---
Assessment and Plan Hematuria UTI Elevated D-dimer chest CTA reports bilateral pulmonary nodules suggestive of metastatic disease. No evidence of PE. Hx of lung cancer surgery in the past Hx of Urinary retention with fang catheter in place Hx of CAD with CABG in 1993 [facility] 09/2017 reports [place] vessel CAD, patent SVG to diagonal and patent SVG to OM. RICE was not used. Echocardiogram done 10/2017 showed a well preserved ejection fraction of 55%. Aortic Valve replacement -mechanical on warfarin; INR of 1.47 on presentation Hx of paroxysmal Afib Dementia Hypertension Diabetes Continue warfarin with IV heparin bridge for mechanical aortic valve until target INR is reached. Subjective Date of service: 10/03/18 Interval history: No cardiac complaints. Awaits therapeutic INR. Objective Vital Signs Temp Pulse Pulse Resp BP Pulse Ox 10/03/18 09:42 58 L 144/42 10/03/18 07:40 97.8 F 58 L 20 104/39 93 10/03/18 02:48 57 L 90 10/03/18 02:39 98.3 F 18 116/46 10/02/18 22:00 62 93 10/02/18 20:47 61 10/02/18 20:04 96 10/02/18 19:45 97.7 F 62 18 118/59 93 10/02/18 13:49 97.8 F 61 18 127/56 94 - Physical Examination General: No Apparent Distress HEENT: Positive: PERRL Neck: Positive: trachea midline Cardiac: Positive: Reg Rate and Rhythm Lungs: Positive: Decreased Breath Sounds Neuro: Positive: Weakness Extremities: Absent: edema - Labs and Meds Coagulation 10/03/18 Range/Units 04:30 PT 16.1 H (12.2-14.9) Sec. INR 1.33 H (0.87-1.13) CBC 10/03/18 Range/Units 04:30 Hgb 10.2 (10.1-14.3) gm/dl Hct 31.0 (30.3-42.9) % Plt Count 305 (140-440) K/mm3
--- NOTE | 2018-10-03 15:03 | Progress Note ---
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 Pt is confused and unable to provide detailed history. Pt history provided by daughter and son who are at bedside during exam and interview. As per family, the patient initially complained of pain with urination and well as pain with urination over the past week, with worsening symptoms over the past 3 days with concomitant confusion, decreased interaction with family. Pt also experienced decreased ability to conduct activities of daily living, and increased bedbound status with worsening gait instability. Pt is currently unable to ambulate independently and maintain upright seated position. Family also reports shortness of breath and increased productive cough with production of clear sputum without relief of symptoms with increased nebulizer therapy. EMS notified, and uopn arrival the patient was found to be in distress and tra nsported to [facility]. Pt seen and evaluated in ED and found to have Encephalopathy, suspected UTI, COPD Exacerbation. Work up concerning for Metastic lung lesion - Discussed with personal care Nurse, patient had Lung surgery in the 80s - IR Consulted for possible biopsy and recommend O/P CT PET scan before the biopsy CT Head: No acute pathology CT chest: Multiple Pulmonary Nodule concerning for Metastatic Disease. Pelvic Ultrasound: Adnexal mass, concerning for enlarged lymphnode Acute Metabolic Encephalopathy with baseline Dementia although worsening COPD Acute Cystitis with no evidence of SEPSIS Debility Diabetes Mellitus Urinary Retention with chronic indwelling fang-Oupt work up in progress, Small pelvic mass - No intervention needed per DIETIST Secondary coagulopathy with subtherapeutic INR AVR-[facility], Mechanical valve >30 years ago - INR is 1.14 today and cardiology recommend to Keep the patient INR is therapeutic and will put a heparin bridge Dementia Hyperkalemia- corrected Anemia Inferior Rectus wall Hematoma Remote Hx of Lung CA PLAN Complex patient considering co-morbidites Considering finding in the lungs, [employer] Analyst recommend this CT abdomen and pelvis which didn't show any mass. Pulmonary sign off DIETIST consulted for further evaluation, Patient also with Hematuria Continue to Monitor H/H Continue coumadin, wth target INR OF 2-2.5 PER Cardiology considering risk assocaiate with possible thrombotic closure of mechanical valve if needed PT/OT eval due to recurrent falls, risk discussed with patient and family (Son and daughter in-law) Fall precautions Urine culture continue abx dvt/GI PROPHY Disposition; Continue inpatient care until INR is therapeutic History Interval history: Patient was seen and evaluated this morning. Patient said she's feeling weak and complains about fang catheter. Hospitalist Physical - Physical exam Narrative exam: Not in cardiopulmonary distress. The patient appeared well nourished and normally developed. Vital signs as documented. Head exam is unremarkable. No scleral icterus . Neck is without jugular venous distension, thyromegaly, or carotid bruits. Lungs are clear to auscultation. Cardiac exam reveals regular rate and Rhythm. Abdominal exam reveals normal bowel sounds. Extremities are nonedematous and both femoral and pedal pulses are normal. patient is on fang catheter. HI LO DRIVER: Alert and oriented 3. No focal weakness. - Constitutional Vitals: Temp Pulse Resp BP Pulse Ox 97.8 F 62 20 144/42 93 10/03/18 07:40 10/03/18 10:00 10/03/18 07:40 10/03/18 09:42 10/03/18 10:00 General appearance: Present: no acute distress Results - Labs CBC & Chem 7: 10/03/18 04:30 10/01/18 06:43 Labs: Laboratory Last Values WBC 8.8 K/mm3 (4.5-11.0) 09/29/18 03:52 RBC 3.35 M/mm3 (3.65-5.03) L 09/29/18 03:52 Hgb 10.2 gm/dl (10.1-14.3) 10/03/18 04:30 Hct 31.0 % (30.3-42.9) 10/03/18 04:30 MCV 88 fl (79-97) 09/29/18 03:52 MCH 29 pg (28-32) 09/29/18 03:52 MCHC 33 % (30-34) 09/29/18 03:52 RDW 15.0 % (13.2-15.2) 09/29/18 03:52 Plt Count 305 K/mm3 (140-440) 10/03/18 04:30 Lymph % (Auto) 25.2 % (13.4-35.0) 09/27/18 19:52 [place] % (Auto) 6.6 % (0.0-7.3) 09/27/18 19:52 Eos % (Auto) 3.5 % (0.0-4.3) 09/27/18 19:52 Baso % (Auto) 0.3 % (0.0-1.8) 09/27/18 19:52 Lymph # 2.3 K/mm3 (1.2-5.4) 09/27/18 19:52 [place] # 0.6 K/mm3 (0.0-0.8) 09/27/18 19:52 Eos # 0.3 K/mm3 (0.0-0.4) 09/27/18 19:52 Baso # 0.0 K/mm3 (0.0-0.1) 09/27/18 19:52 Seg Neutrophils % 64.4 % (40.0-70.0) 09/27/18 19:52 Seg Neutrophils # 5.8 K/mm3 (1.8-7.7) 09/27/18 19:52 PT 16.1 Sec. (12.2-14.9) H 10/03/18 04:30 INR 1.33 (0.87-1.13) H 10/03/18 04:30 APTT 29.7 Sec. (24.2-36.6) 10/01/18 14:21 408.99 ng/mlDDU (0-234) H 09/27/18 19:52 Heparin Anti-Xa Level 0.52 U.I./ml (0.3-0.7) 10/03/18 12:20 Sodium 140 mmol/L (137-145) 10/01/18 06:43 Potassium 3.6 mmol/L (3.6-5.0) 10/01/18 06:43 Chloride 100.1 mmol/L (98-107) 10/01/18 06:43 Carbon Dioxide 30 mmol/L (22-30) 10/01/18 06:43 14 mmol/L 10/01/18 06:43 BUN 20 mg/dL (7-17) H 10/01/18 06:43 1.4 mg/dL (0.7-1.2) H 10/01/18 06:43 Estimated GFR 36 ml/min 10/01/18 06:43 14 % 10/01/18 06:43 Glucose 101 mg/dL (65-100) H 10/01/18 06:43 POC Glucose 139 (70-105) H 10/01/18 16:55 Calcium 8.6 mg/dL (8.4-10.2) 10/01/18 06:43 0.20 mg/dL (0.1-1.2) 09/27/18 19:52 AST 17 units/L (5-40) 09/27/18 19:52 ALT 8 units/L (7-56) 09/27/18 19:52 58 units/L (35-129) 09/27/18 19:52 7.0 g/dL (6.3-8.2) 09/27/18 19:52 3.4 g/dL (3.9-5) L 09/27/18 19:52 0.9 % 09/27/18 19:52 TSH 3.420 mlU/mL (0.270-4.200) 09/27/18 19:52 Free T4 0.96 ng/dL (0.76-1.46) 09/27/18 19:52 Yellow (Yellow) 09/27/18 19:28 Cloudy (Clear) 09/27/18 19:28 5.0 (5.0-7.0) 09/27/18 19:28 Ur Specific [place] 1.016 (1.003-1.030) 09/27/18 19:28 30 mg/dl mg/dL (Negative) 09/27/18 19:28 Neg mg/dL (Negative) 09/27/18 19:28 Neg mg/dL (Negative) 09/27/18 19:28 Lg (Negative) 09/27/18 19:28 Neg (Negative) 09/27/18 19:28 Neg (Negative) 09/27/18 19:28 < 2.0 mg/dL (<2.0) 09/27/18 19:28 Ur Leukocyte Esterase Mod (Negative) 09/27/18 19:28 58.0 /HPF (0.0-6.0) H 09/27/18 19:28 > 182.0 /HPF (0.0-6.0) 09/27/18 19:28 U Epithel Cells (Auto) 3.0 /HPF (0-13.0) 09/27/18 19:28 1+ /HPF (Negative) 09/27/18 19:28 Hyaline Casts 3 /LPF 09/27/18 19:28 Few /HPF 09/27/18 19:28 2+ /HPF 09/27/18 19:28 Active Medications - Current Medications Current Medications: Generic Name Dose Route Start Last Admin Trade Name Don PRN Reason Stop Dose Admin Albuterol 2.5 mg 09/27/18 18:34 Proventil IH Q4H PRN Shortness Of Breath Aspirin 81 mg 09/28/18 10:00 10/03/18 09:41 Halfprin Ec PO 81 mg DAILY LEONOR Administration Calcium Carbonate/Glycine 648 mg 09/28/18 22:00 10/03/18 09:43 Calcium Carbonate PO 648 mg BID LEONOR Administration Cholecalciferol 1,000 unit 09/28/18 10:00 10/03/18 09:43 Vitamin D3 PO 1,000 unit DAILY LEONOR Administration Citalopram Hydrobromide 10 mg 09/28/18 10:00 10/03/18 09:41 Celexa PO 10 mg DAILY LEONOR Administration Cyanocobalamin 500 mcg 09/28/18 12:00 10/03/18 09:45 Vitamin B-12 PO 500 mcg QDAY LEONOR Administration Donepezil HCl 5 mg 09/28/18 22:00 10/02/18 21:53 Aricept PO 5 mg QHS LEONOR Administration Famotidine 10 mg 09/28/18 11:00 10/03/18 09:41 Pepcid PO 10 mg BID LEONOR Administration Furosemide 40 mg 09/28/18 10:00 10/03/18 09:46 Lasix PO 40 mg DAILY LEONOR Administration Gabapentin 300 mg 09/28/18 22:00 10/02/18 21:52 Neurontin PO 300 mg QHS LEONOR Administration Sodium Chloride 1,000 mls @ 42 mls/hr 09/27/18 19:00 10/01/18 17:40 Nacl 0.9% 1000 Ml IV 42 mls/hr DIRECT LEONOR Administration Ceftriaxone Sodium 1 gm in 50 mls @ 100 mls/hr 09/28/18 10:00 10/03/18 09:43 Rocephin/Ns 1 Gm/50 Ml IV 10/04/18 23:59 100 mls/hr Q24H LEONOR Administration Protocol Heparin Sodium/Sodium Chloride 25,000 unit in 500 mls @ 20 mls/hr 10/01/18 13:00 10/03/18 12:56 Heparin/ 0.45% Nacl-25,000 Unit/500 Ml IV 900 units/hr TITR LEONOR 18 mls/hr Titration Protocol 1,000 UNITS/HR Isosorbide Mononitrate 30 mg 09/28/18 11:00 10/03/18 09:42 Imdur PO 30 mg DAILY LEONOR Administration Magnesium Hydroxide 30 ml 10/02/18 11:41 10/02/18 11:56 Milk Of Magnesia PO 30 ml QDAY PRN Administration constipation Memantine 10 mg 09/28/18 10:00 10/03/18 09:42 Namenda PO 10 mg BID LEONOR Administration Metformin HCl 250 mg 09/28/18 10:00 10/01/18 11:34 Glucophage PO 250 mg QAMDIAB LEONOR Administration Ondansetron HCl 4 mg 09/27/18 18:34 Zofran IV Q8H PRN Nausea And Vomiting Primidone 50 mg 09/28/18 22:00 10/02/18 21:53 Mysoline PO 50 mg QHS LEONOR Administration Sodium Chloride 10 ml 09/27/18 22:00 10/03/18 09:45 Sodium Chloride Flush Syringe 10 Ml IV 10 ml BID LEONOR Administration Sodium Chloride 10 ml 09/27/18 18:34 Sodium Chloride Flush Syringe 10 Ml IV PRN PRN LINE FLUSH Warfarin Sodium 5 mg 10/02/18 17:00 10/02/18 17:08 Coumadin PO 10/05/18 16:59 5 mg DAILY@1700 LEONOR Administration Protocol Warfarin Sodium 2.5 mg 10/05/18 17:00 Coumadin PO DAILY@1700 LEONOR Protocol Nutrition/Malnutrition Assess - Dietary Evaluation Nutrition/Malnutrition Findings: Nutrition Notes Start: 09/29/18 15:12 Freq: Status: Active Protocol: Document 09/29/18 15:12 OH (Rec: 09/29/18 15:14 OH [id number]) Nutrition Notes Initial or Follow up Brief Note Subjective/Other Information Coumadin education request ( DNI). Pt. currently receiving coumadin and monitored by MD > 10 years. Nutrition Intervention Revisit per MD consult or patient Sign Off request: Additional Comments No further coumadin education required at this time.
[2018-10-03] MEDS: COUMADIN PO SCH (16:15)
[2018-10-03] MEDS: ARICEPT PO SCH (22:00)
[2018-10-03] MEDS: MYSOLINE PO SCH (22:25)
[2018-10-03] MEDS: NEURONTIN PO SCH (22:26)
[2018-10-04] MEDS: SODIUM CHLORIDE FLUSH SYRINGE 10 ML IV SCH ×3 (03:43→21:32)
[2018-10-04 04:57] LABS: INR 1.56 (0.87-1.13)
[2018-10-04] MEDS: PEPCID PO SCH ×2 (10:29→21:31)
[2018-10-04] MEDS: HALFPRIN EC PO SCH (10:29)
[2018-10-04] MEDS: VITAMIN D3 PO SCH (10:29)
[2018-10-04] MEDS: celeXA PO SCH (10:30)
[2018-10-04] MEDS: IMDUR PO SCH (10:30)
[2018-10-04] MEDS: LASIX PO SCH (10:30)
--- NOTE | 2018-10-04 10:46 | Progress Note ---
Assessment and Plan - Patient Problems (1) H/O mechanical aortic valve replacement Current Visit: Yes Status: Acute Plan to address problem: Patient has been resumed on Coumadin, target INR 2.0-2.5. Subjective Date of service: 10/04/18 Interval history: Patient is comfortable, no new cardiac complaints. INR is increased to 1.56. Objective Vital Signs Temp Pulse Resp BP Pulse Ox 10/04/18 07:34 98.9 F 53 L 20 139/56 98 10/04/18 02:11 98.0 F 53 L 18 135/53 99 10/03/18 19:42 97.4 F L 70 18 133/56 94 10/03/18 13:56 98.0 F 20 109/44 10/03/18 13:54 98.0 F 20 94/31 - Physical Examination General: No Apparent Distress HEENT: Positive: PERRL Neck: Positive: trachea midline Cardiac: Positive: Reg Rate and Rhythm Lungs: Positive: Decreased Breath Sounds Neuro: Positive: Grossly Intact Abdomen: Positive: Soft Skin: Positive: Clear Extremities: Absent: edema - Labs and Meds Coagulation 10/04/18 Range/Units 04:21 PT 18.3 H (12.2-14.9) Sec. INR 1.56 H (0.87-1.13)
[2018-10-04] MEDS: ROCEPHIN/NS 1 GM/50 ML 1 GM/50 ML BAG IV SCH (11:11)
[2018-10-04] MEDS ORDERED: PERCOCET 5/325 PO PRN (12:13)
[2018-10-04] MEDS: VITAMIN B-12 PO SCH (12:14)
[2018-10-04] MEDS: CALCIUM CARBONATE PO SCH ×2 (12:15→21:32)
--- NOTE | 2018-10-04 12:17 | Progress Note ---
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 Pt is confused and unable to provide detailed history. Pt history provided by daughter and son who are at bedside during exam and interview. As per family, the patient initially complained of pain with urination and well as pain with urination over the past week, with worsening symptoms over the past 3 days with concomitant confusion, decreased interaction with family. Pt also experienced decreased ability to conduct activities of daily living, and increased bedbound status with worsening gait instability. Pt is currently unable to ambulate independently and maintain upright seated position. Family also reports shortness of breath and increased productive cough with production of clear sputum without relief of symptoms with increased nebulizer therapy. EMS notified, and uopn arrival the patient was found to be in distress and tra nsported to [facility]. Pt seen and evaluated in ED and found to have Encephalopathy, suspected UTI, COPD Exacerbation. Work up concerning for Metastic lung lesion - Discussed with personal care Nurse, patient had Lung surgery in the 80s - IR Consulted for possible biopsy and recommend O/P CT PET scan before the biopsy CT Head: No acute pathology CT chest: Multiple Pulmonary Nodule concerning for Metastatic Disease. Pelvic Ultrasound: Adnexal mass, concerning for enlarged lymphnode Acute Metabolic Encephalopathy with baseline Dementia although worsening COPD Acute Cystitis with no evidence of SEPSIS Debility Diabetes Mellitus Urinary Retention with chronic indwelling fang-Oupt work up in progress, Small pelvic mass - No intervention needed per TRAPEZE PERFORMER - Seen by urology and no intervention needed Secondary coagulopathy with subtherapeutic INR AVR-[facility], Mechanical valve >30 years ago - INR is 1.14 today and cardiology recommend to Keep the patient INR is therapeutic and will put a heparin bridge Dementia Hyperkalemia- corrected Anemia Inferior Rectus wall Hematoma Remote Hx of Lung CA PLAN Complex patient considering co-morbidites Considering finding in the lungs, Insurance Claims Examiner recommend this CT abdomen and pelvis which didn't show any mass. Pulmonary sign off TRAPEZE PERFORMER consulted for further evaluation, Patient also with Hematuria Continue to Monitor H/H Continue coumadin, wth target INR OF 2-2.5 PER Cardiology considering risk assocaiate with possible thrombotic closure of mechanical valve if needed PT/OT eval due to recurrent falls, risk discussed with patient and family (Son and daughter in-law) Fall precautions Urine culture continue abx dvt/GI PROPHY Disposition; Continue inpatient care until INR is therapeutic. After that patient will be discharged to SNF. History Interval history: Patient was seen and evaluated this morning. Patient said she's feeling weak and complains about fang catheter. Hospitalist Physical - Physical exam Narrative exam: Not in cardiopulmonary distress. The patient appeared well nourished and normally developed. Vital signs as documented. Head exam is unremarkable. No scleral icterus . Neck is without jugular venous distension, thyromegaly, or carotid bruits. Lungs are clear to auscultation. Cardiac exam reveals regular rate and Rhythm. Abdominal exam reveals normal bowel sounds. Extremities are nonedematous and both femoral and pedal pulses are normal. patient is on fang catheter. GRAVITY PROSPECTOR: Alert and oriented 3. No focal weakness. - Constitutional Vitals: Temp Pulse Resp BP Pulse Ox 98.9 F 53 L 20 139/56 98 10/04/18 07:34 10/04/18 07:34 10/04/18 07:34 10/04/18 07:34 10/04/18 07:34 General appearance: Present: no acute distress Results - Labs CBC & Chem 7: 10/03/18 04:30 10/01/18 06:43 Labs: Laboratory Last Values WBC 8.8 K/mm3 (4.5-11.0) 09/29/18 03:52 RBC 3.35 M/mm3 (3.65-5.03) L 09/29/18 03:52 Hgb 10.2 gm/dl (10.1-14.3) 10/03/18 04:30 Hct 31.0 % (30.3-42.9) 10/03/18 04:30 MCV 88 fl (79-97) 09/29/18 03:52 MCH 29 pg (28-32) 09/29/18 03:52 MCHC 33 % (30-34) 09/29/18 03:52 RDW 15.0 % (13.2-15.2) 09/29/18 03:52 Plt Count 305 K/mm3 (140-440) 10/03/18 04:30 Lymph % (Auto) 25.2 % (13.4-35.0) 09/27/18 19:52 [place] % (Auto) 6.6 % (0.0-7.3) 09/27/18 19:52 Eos % (Auto) 3.5 % (0.0-4.3) 09/27/18 19:52 Baso % (Auto) 0.3 % (0.0-1.8) 09/27/18 19:52 Lymph # 2.3 K/mm3 (1.2-5.4) 09/27/18 19:52 [place] # 0.6 K/mm3 (0.0-0.8) 09/27/18 19:52 Eos # 0.3 K/mm3 (0.0-0.4) 09/27/18 19:52 Baso # 0.0 K/mm3 (0.0-0.1) 09/27/18 19:52 Seg Neutrophils % 64.4 % (40.0-70.0) 09/27/18 19:52 Seg Neutrophils # 5.8 K/mm3 (1.8-7.7) 09/27/18 19:52 PT 18.3 Sec. (12.2-14.9) H 10/04/18 04:21 INR 1.56 (0.87-1.13) H 10/04/18 04:21 APTT 29.7 Sec. (24.2-36.6) 10/01/18 14:21 408.99 ng/mlDDU (0-234) H 09/27/18 19:52 Heparin Anti-Xa Level 0.36 U.I./ml (0.3-0.7) 10/04/18 04:21 Sodium 140 mmol/L (137-145) 10/01/18 06:43 Potassium 3.6 mmol/L (3.6-5.0) 10/01/18 06:43 Chloride 100.1 mmol/L (98-107) 10/01/18 06:43 Carbon Dioxide 30 mmol/L (22-30) 10/01/18 06:43 14 mmol/L 10/01/18 06:43 BUN 20 mg/dL (7-17) H 10/01/18 06:43 1.4 mg/dL (0.7-1.2) H 10/01/18 06:43 Estimated GFR 36 ml/min 10/01/18 06:43 14 % 10/01/18 06:43 Glucose 101 mg/dL (65-100) H 10/01/18 06:43 POC Glucose 139 (70-105) H 10/01/18 16:55 Calcium 8.6 mg/dL (8.4-10.2) 10/01/18 06:43 0.20 mg/dL (0.1-1.2) 09/27/18 19:52 AST 17 units/L (5-40) 09/27/18 19:52 ALT 8 units/L (7-56) 09/27/18 19:52 58 units/L (35-129) 09/27/18 19:52 7.0 g/dL (6.3-8.2) 09/27/18 19:52 3.4 g/dL (3.9-5) L 09/27/18 19:52 0.9 % 09/27/18 19:52 32 U/mL (<35) 09/30/18 23:51 TSH 3.420 mlU/mL (0.270-4.200) 09/27/18 19:52 Free T4 0.96 ng/dL (0.76-1.46) 09/27/18 19:52 Yellow (Yellow) 09/27/18 19:28 Cloudy (Clear) 09/27/18 19:28 5.0 (5.0-7.0) 09/27/18 19:28 Ur Specific [place] 1.016 (1.003-1.030) 09/27/18 19:28 30 mg/dl mg/dL (Negative) 09/27/18 19:28 Neg mg/dL (Negative) 09/27/18 19:28 Neg mg/dL (Negative) 09/27/18 19:28 Lg (Negative) 09/27/18 19:28 Neg (Negative) 09/27/18 19:28 Neg (Negative) 09/27/18 19:28 < 2.0 mg/dL (<2.0) 09/27/18 19:28 Ur Leukocyte Esterase Mod (Negative) 09/27/18 19:28 58.0 /HPF (0.0-6.0) H 09/27/18 19:28 > 182.0 /HPF (0.0-6.0) 09/27/18 19:28 U Epithel Cells (Auto) 3.0 /HPF (0-13.0) 09/27/18 19:28 1+ /HPF (Negative) 09/27/18 19:28 Hyaline Casts 3 /LPF 09/27/18 19:28 Few /HPF 09/27/18 19:28 2+ /HPF 09/27/18 19:28 Active Medications - Current Medications Current Medications: Generic Name Dose Route Start Last Admin Trade Name Frecoral PRN Reason Stop Dose Admin Albuterol 2.5 mg 09/27/18 18:34 Proventil IH Q4H PRN Shortness Of Breath Aspirin 81 mg 09/28/18 10:00 10/04/18 10:29 Halfprin Ec PO 81 mg DAILY LEONOR Administration Calcium Carbonate/Glycine 648 mg 09/28/18 22:00 10/03/18 22:26 Calcium Carbonate PO 648 mg BID LEONOR Administration Cholecalciferol 1,000 unit 09/28/18 10:00 10/04/18 10:29 Vitamin D3 PO 1,000 unit DAILY LEONOR Administration Citalopram Hydrobromide 10 mg 09/28/18 10:00 10/04/18 10:30 Celexa PO 10 mg DAILY LEONOR Administration Cyanocobalamin 500 mcg 09/28/18 12:00 10/03/18 09:45 Vitamin B-12 PO 500 mcg QDAY LEONOR Administration Donepezil HCl 5 mg 09/28/18 22:00 10/03/18 22:00 Aricept PO 5 mg QHS LEONOR Administration Famotidine 10 mg 09/28/18 11:00 10/04/18 10:29 Pepcid PO 10 mg BID LEONOR Administration Furosemide 40 mg 09/28/18 10:00 10/04/18 10:30 Lasix PO 40 mg DAILY LEONOR Administration Gabapentin 300 mg 09/28/18 22:00 10/03/18 22:26 Neurontin PO 300 mg QHS LEONOR Administration Sodium Chloride 1,000 mls @ 42 mls/hr 09/27/18 19:00 10/01/18 17:40 Nacl 0.9% 1000 Ml IV 42 mls/hr DIRECT LEONOR Administration Ceftriaxone Sodium 1 gm in 50 mls @ 100 mls/hr 09/28/18 10:00 10/04/18 11:11 Rocephin/Ns 1 Gm/50 Ml IV 10/04/18 23:59 100 mls/hr Q24H LEONOR Administration Protocol Heparin Sodium/Sodium Chloride 25,000 unit in 500 mls @ 20 mls/hr 10/01/18 13:00 10/04/18 06:33 Heparin/ 0.45% Nacl-25,000 Unit/500 Ml IV Infused TITR LEONOR Titration Protocol 1,000 UNITS/HR Isosorbide Mononitrate 30 mg 09/28/18 11:00 10/04/18 10:30 Imdur PO 30 mg DAILY LEONOR Administration Magnesium Hydroxide 30 ml 10/02/18 11:41 10/02/18 11:56 Milk Of Magnesia PO 30 ml QDAY PRN Administration constipation Memantine 10 mg 09/28/18 10:00 10/03/18 22:26 Namenda PO 10 mg BID LEONOR Administration Metformin HCl 250 mg 09/28/18 10:00 10/01/18 11:34 Glucophage PO 250 mg QAMDIAB LEONOR Administration Ondansetron HCl 4 mg 09/27/18 18:34 Zofran IV Q8H PRN Nausea And Vomiting Oxycodone/Acetaminophen 1 tab 10/04/18 12:13 Percocet 5/325 PO Q6H PRN Pain, Moderate (4-6) Primidone 50 mg 09/28/18 22:00 10/03/18 22:25 Mysoline PO 50 mg QHS LEONOR Administration Sodium Chloride 10 ml 09/27/18 22:00 10/04/18 10:30 Sodium Chloride Flush Syringe 10 Ml IV 10 ml BID LEONOR Administration Sodium Chloride 10 ml 09/27/18 18:34 Sodium Chloride Flush Syringe 10 Ml IV PRN PRN LINE FLUSH Warfarin Sodium 5 mg 10/02/18 17:00 10/03/18 16:15 Coumadin PO 10/05/18 16:59 5 mg DAILY@1700 [facility] Administration Protocol Warfarin Sodium 2.5 mg 10/05/18 17:00 Coumadin PO DAILY@1700 [facility] Protocol Nutrition/Malnutrition Assess - Dietary Evaluation Nutrition/Malnutrition Findings: Nutrition Notes Start: 09/29/18 15:12 Freq: Status: Active Protocol: Document 10/03/18 21:05 RM (Rec: 10/03/18 21:13 RM [id number]) Nutrition Notes Need for Assessment generated from: LOS Initial or Follow up Brief Note Current Diagnosis Diabetes,Hypertension,Stroke Other Pertinent Diagnosis Dementia,Encephalopathy, UTi Current Diet Caridac/Consistent CHO Labs/Tests Reviewed Pertinent Medications Lasix Height 5 ft 4 in Weight 68.039 kg [place] Body Weight (kg) 54.54 BMI 25.7 Subjective/Other Information Screened for LOS. Pt not in room at time of visit. Recorded PO intake 67% X 2 days. Percent of energy/protein needs met: 98%/82% Burn Absent Trauma Absent Is patient on ventilator? No Is Patient Ambulatory and/or Out of Bed No REE-([place]-confined to bed) 0835.023 Calculation [facility] or Additional Notes Protein Needs: 68-82g (1-1.2g/ kg) Fluid Needs: 1 ml/kcal Nutrition Intervention Follow-Up By: 10/08/18 Additional Comments Follow to confirm intakes
[2018-10-04] MEDS ORDERED: TYLENOL PO PRN (12:32)
[2018-10-04] MEDS: NAMENDA PO SCH ×2 (13:09→21:31)
[2018-10-04] MEDS: HEPARIN/ 0.45% NACL-25,000 UNIT/500 ML 25,000 UNIT/500 ML BAG IV SCH (14:25)
[2018-10-04] MEDS: COUMADIN PO SCH (17:20)
[2018-10-04] MEDS: ARICEPT PO SCH (21:29)
[2018-10-04] MEDS: MYSOLINE PO SCH (21:30)
[2018-10-04] MEDS: NEURONTIN PO SCH (21:30)
[2018-10-04] MEDS: BENADRYL PO PRN (23:57)
[2018-10-04] MEDS: MUCINEX ER PO SCH (23:57)
[2018-10-05 06:25] LABS: Hematocrit 31.4 % (30.3-42.9); Hemoglobin 10.4 gm/dl (10.1-14.3)
[2018-10-05 06:33] LABS: INR 1.89 (0.87-1.13)
[2018-10-05] MEDS: LASIX PO SCH (09:36)
[2018-10-05] MEDS: IMDUR PO SCH (09:36)
[2018-10-05] MEDS: celeXA PO SCH (09:36)
[2018-10-05] MEDS: PEPCID PO SCH ×2 (09:37→21:38)
[2018-10-05] MEDS: MUCINEX ER PO SCH ×2 (09:37→21:38)
[2018-10-05] MEDS: VITAMIN D3 PO SCH (09:37)
[2018-10-05] MEDS: NAMENDA PO SCH ×2 (09:37→21:38)
[2018-10-05] MEDS: HALFPRIN EC PO SCH (09:37)
[2018-10-05] MEDS: CALCIUM CARBONATE PO SCH ×2 (09:37→21:38)
[2018-10-05] MEDS: VITAMIN B-12 PO SCH (09:38)
[2018-10-05] MEDS: SODIUM CHLORIDE FLUSH SYRINGE 10 ML IV SCH ×2 (09:38→21:37)
--- NOTE | 2018-10-05 14:52 | Progress Note ---
Assessment and Plan - Patient Problems (1) H/O mechanical aortic valve replacement Current Visit: Yes Status: Acute Plan to address problem: INR today is 1.89. We will stop heparin, continue Coumadin maintenance at 2.5 mg daily, target INR 2.0-2.5. Subjective Date of service: 10/05/18 Interval history: Patient is comfortable, no new cardiac complaints. INR is 1.89. Objective Vital Signs Temp Pulse Resp BP Pulse Ox 10/05/18 08:22 97.4 F L 65 18 102/47 90 10/05/18 07:47 96 10/05/18 02:20 97.5 F L 53 L 16 123/48 100 10/04/18 22:00 60 10/04/18 20:10 98.6 F 58 L 18 129/57 90 - Physical Examination General: No Apparent Distress HEENT: Positive: PERRL Neck: Positive: trachea midline Cardiac: Positive: Reg Rate and Rhythm Lungs: Positive: Decreased Breath Sounds Neuro: Positive: Grossly Intact Abdomen: Positive: Soft Skin: Positive: Clear Extremities: Absent: edema - Labs and Meds Coagulation 10/05/18 Range/Units 04:13 PT 21.3 H (12.2-14.9) Sec. INR 1.89 H (0.87-1.13) CBC 10/05/18 Range/Units 04:13 Hgb 10.4 (10.1-14.3) gm/dl Hct 31.4 (30.3-42.9) % Plt Count 291 (140-440) K/mm3
--- NOTE | 2018-10-05 16:13 | Progress Note ---
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 Pt is confused and unable to provide detailed history. Pt history provided by daughter and son who are at bedside during exam and interview. As per family, the patient initially complained of pain with urination and well as pain with urination over the past week, with worsening symptoms over the past 3 days with concomitant confusion, decreased interaction with family. Pt also experienced decreased ability to conduct activities of daily living, and increased bedbound status with worsening gait instability. Pt is currently unable to ambulate independently and maintain upright seated position. Family also reports shortness of breath and increased productive cough with production of clear sputum without relief of symptoms with increased nebulizer therapy. EMS notified, and uopn arrival the patient was found to be in distress and tra nsported to [facility]. Pt seen and evaluated in ED and found to have Encephalopathy, suspected UTI, COPD Exacerbation. Work up concerning for Metastic lung lesion - Discussed with personal care Nurse, patient had Lung surgery in the 80s - IR Consulted for possible biopsy and recommend O/P CT PET scan before the biopsy CT Head: No acute pathology CT chest: Multiple Pulmonary Nodule concerning for Metastatic Disease. Pelvic Ultrasound: Adnexal mass, concerning for enlarged lymphnode Acute Metabolic Encephalopathy with baseline Dementia although worsening COPD Acute Cystitis with no evidence of SEPSIS Debility Diabetes Mellitus Urinary Retention with chronic indwelling fang-Oupt work up in progress, Small pelvic mass - No intervention needed per CHILDCARE ADMINISTRATOR - Seen by urology and no intervention needed Secondary coagulopathy with subtherapeutic INR AVR-[facility], Mechanical valve >30 years ago - INR is 1.14 today and cardiology recommend to Keep the patient INR is therapeutic and will put a heparin bridge Dementia Hyperkalemia- corrected Anemia Inferior Rectus wall Hematoma Remote Hx of Lung CA PLAN Complex patient considering co-morbidites Considering finding in the lungs, Bonding Agent recommend this CT abdomen and pelvis which didn't show any mass. Pulmonary sign off CHILDCARE ADMINISTRATOR consulted for further evaluation, Patient also with Hematuria Continue to Monitor H/H Continue coumadin, wth target INR OF 2-2.5 PER Cardiology considering risk assocaiate with possible thrombotic closure of mechanical valve if needed PT/OT eval due to recurrent falls, risk discussed with patient and family (Son and daughter in-law) Fall precautions Urine culture continue abx dvt/GI PROPHY Disposition; Continue inpatient care until INR is therapeutic. After that patient will be discharged to SNF. History Interval history: Patient was seen and evaluated this morning. Patient said she's feeling weak and complains about fang catheter. Hospitalist Physical - Physical exam Narrative exam: Not in cardiopulmonary distress. The patient appeared well nourished and normally developed. Vital signs as documented. Head exam is unremarkable. No scleral icterus . Neck is without jugular venous distension, thyromegaly, or carotid bruits. Lungs are clear to auscultation. Cardiac exam reveals regular rate and Rhythm. Abdominal exam reveals normal bowel sounds. Extremities are nonedematous and both femoral and pedal pulses are normal. patient is on fang catheter. STOPPERER ASSEMBLER: Alert and oriented 3. No focal weakness. Hospitalist Physical - Constitutional Vitals: Temp Pulse Resp BP Pulse Ox 97.4 F L 65 18 102/47 90 10/05/18 08:22 10/05/18 08:22 10/05/18 08:22 10/05/18 08:22 10/05/18 08:22 General appearance: Present: no acute distress Results - Labs CBC & Chem 7: 10/05/18 04:13 10/01/18 06:43 Labs: Laboratory Last Values WBC 8.8 K/mm3 (4.5-11.0) 09/29/18 03:52 RBC 3.35 M/mm3 (3.65-5.03) L 09/29/18 03:52 Hgb 10.4 gm/dl (10.1-14.3) 10/05/18 04:13 Hct 31.4 % (30.3-42.9) 10/05/18 04:13 MCV 88 fl (79-97) 09/29/18 03:52 MCH 29 pg (28-32) 09/29/18 03:52 MCHC 33 % (30-34) 09/29/18 03:52 RDW 15.0 % (13.2-15.2) 09/29/18 03:52 Plt Count 291 K/mm3 (140-440) 10/05/18 04:13 Lymph % (Auto) 25.2 % (13.4-35.0) 09/27/18 19:52 [place] % (Auto) 6.6 % (0.0-7.3) 09/27/18 19:52 Eos % (Auto) 3.5 % (0.0-4.3) 09/27/18 19:52 Baso % (Auto) 0.3 % (0.0-1.8) 09/27/18 19:52 Lymph # 2.3 K/mm3 (1.2-5.4) 09/27/18 19:52 [place] # 0.6 K/mm3 (0.0-0.8) 09/27/18 19:52 Eos # 0.3 K/mm3 (0.0-0.4) 09/27/18 19:52 Baso # 0.0 K/mm3 (0.0-0.1) 09/27/18 19:52 Seg Neutrophils % 64.4 % (40.0-70.0) 09/27/18 19:52 Seg Neutrophils # 5.8 K/mm3 (1.8-7.7) 09/27/18 19:52 PT 21.3 Sec. (12.2-14.9) H 10/05/18 04:13 INR 1.89 (0.87-1.13) H 10/05/18 04:13 APTT 29.7 Sec. (24.2-36.6) 10/01/18 14:21 408.99 ng/mlDDU (0-234) H 09/27/18 19:52 Heparin Anti-Xa Level 0.27 U.I./ml (0.3-0.7) L 10/04/18 17:38 Sodium 140 mmol/L (137-145) 10/01/18 06:43 Potassium 3.6 mmol/L (3.6-5.0) 10/01/18 06:43 Chloride 100.1 mmol/L (98-107) 10/01/18 06:43 Carbon Dioxide 30 mmol/L (22-30) 10/01/18 06:43 14 mmol/L 10/01/18 06:43 BUN 20 mg/dL (7-17) H 10/01/18 06:43 1.4 mg/dL (0.7-1.2) H 10/01/18 06:43 Estimated GFR 36 ml/min 10/01/18 06:43 14 % 10/01/18 06:43 Glucose 101 mg/dL (65-100) H 10/01/18 06:43 POC Glucose 124 (70-105) H 10/04/18 21:46 Calcium 8.6 mg/dL (8.4-10.2) 10/01/18 06:43 0.20 mg/dL (0.1-1.2) 09/27/18 19:52 AST 17 units/L (5-40) 09/27/18 19:52 ALT 8 units/L (7-56) 09/27/18 19:52 58 units/L (35-129) 09/27/18 19:52 7.0 g/dL (6.3-8.2) 09/27/18 19:52 3.4 g/dL (3.9-5) L 09/27/18 19:52 0.9 % 09/27/18 19:52 32 U/mL (<35) 09/30/18 23:51 TSH 3.420 mlU/mL (0.270-4.200) 09/27/18 19:52 Free T4 0.96 ng/dL (0.76-1.46) 09/27/18 19:52 Yellow (Yellow) 09/27/18 19:28 Cloudy (Clear) 09/27/18 19:28 5.0 (5.0-7.0) 09/27/18 19:28 Ur Specific [place] 1.016 (1.003-1.030) 09/27/18 19:28 30 mg/dl mg/dL (Negative) 09/27/18 19:28 Neg mg/dL (Negative) 09/27/18 19:28 Neg mg/dL (Negative) 09/27/18 19:28 Lg (Negative) 09/27/18 19:28 Neg (Negative) 09/27/18 19:28 Neg (Negative) 09/27/18 19:28 < 2.0 mg/dL (<2.0) 09/27/18 19:28 Ur Leukocyte Esterase Mod (Negative) 09/27/18 19:28 58.0 /HPF (0.0-6.0) H 09/27/18 19:28 > 182.0 /HPF (0.0-6.0) 09/27/18 19:28 U Epithel Cells (Auto) 3.0 /HPF (0-13.0) 09/27/18 19:28 1+ /HPF (Negative) 09/27/18 19:28 Hyaline Casts 3 /LPF 09/27/18 19:28 Few /HPF 09/27/18 19:28 2+ /HPF 09/27/18 19:28 Active Medications - Current Medications Current Medications: Generic Name Dose Route Start Last Admin Trade Name Don PRN Reason Stop Dose Admin Acetaminophen 650 mg 10/04/18 12:32 10/04/18 13:04 Tylenol PO 650 mg Q4H PRN Administration Pain, Moderate (4-6) Albuterol 2.5 mg 09/27/18 18:34 Proventil IH Q4H PRN Shortness Of Breath Aspirin 81 mg 09/28/18 10:00 10/05/18 09:37 Halfprin Ec PO 81 mg DAILY LEONOR Administration Benzonatate 100 mg 10/05/18 22:00 Tessalon Perles PO Q8HR LEONOR Calcium Carbonate/Glycine 648 mg 09/28/18 22:00 10/05/18 09:37 Calcium Carbonate PO 648 mg BID LEONOR Administration Cholecalciferol 1,000 unit 09/28/18 10:00 10/05/18 09:37 Vitamin D3 PO 1,000 unit DAILY LEONOR Administration Citalopram Hydrobromide 10 mg 09/28/18 10:00 10/05/18 09:36 Celexa PO 10 mg DAILY LEONOR Administration Cyanocobalamin 500 mcg 09/28/18 12:00 10/05/18 09:38 Vitamin B-12 PO 500 mcg QDAY LEONOR Administration Diphenhydramine HCl 25 mg 10/04/18 23:26 10/04/18 23:57 Benadryl PO 25 mg QHS PRN Administration Sleep Donepezil HCl 5 mg 09/28/18 22:00 10/04/18 21:29 Aricept PO 5 mg QHS LEONOR Administration Famotidine 10 mg 09/28/18 11:00 10/05/18 09:37 Pepcid PO 10 mg BID LEONOR Administration Furosemide 40 mg 09/28/18 10:00 10/05/18 09:36 Lasix PO 40 mg DAILY LEONOR Administration Gabapentin 300 mg 09/28/18 22:00 10/04/18 21:30 Neurontin PO 300 mg QHS LEONOR Administration Guaifenesin 600 mg 10/04/18 23:45 10/05/18 09:37 Mucinex Er PO 600 mg BID LEONOR Administration Guaifenesin 20 ml 10/05/18 15:09 10/05/18 15:41 Guaifenesin Dm Syrup PO 20 ml Q4H PRN Administration Cough Sodium Chloride 1,000 mls @ 42 mls/hr 09/27/18 19:00 10/01/18 17:40 Nacl 0.9% 1000 Ml IV 42 mls/hr DIRECT LEONOR Administration Isosorbide Mononitrate 30 mg 09/28/18 11:00 10/05/18 09:36 Imdur PO 30 mg DAILY LEONOR Administration Magnesium Hydroxide 30 ml 10/02/18 11:41 10/02/18 11:56 Milk Of Magnesia PO 30 ml QDAY PRN Administration constipation Memantine 10 mg 09/28/18 10:00 10/05/18 09:37 Namenda PO 10 mg BID LEONOR Administration Metformin HCl 250 mg 09/28/18 10:00 10/01/18 11:34 Glucophage PO 250 mg QAMDIAB LEONOR Administration Ondansetron HCl 4 mg 09/27/18 18:34 Zofran IV Q8H PRN Nausea And Vomiting Primidone 50 mg 09/28/18 22:00 10/04/18 21:30 Mysoline PO 50 mg QHS LEONOR Administration Sodium Chloride 10 ml 09/27/18 22:00 10/05/18 09:38 Sodium Chloride Flush Syringe 10 Ml IV 10 ml BID LEONOR Administration Sodium Chloride 10 ml 09/27/18 18:34 Sodium Chloride Flush Syringe 10 Ml IV PRN PRN LINE FLUSH Warfarin Sodium 5 mg 10/02/18 17:00 10/04/18 17:20 Coumadin PO 10/05/18 16:59 5 mg DAILY@1700 [facility] Administration Protocol Warfarin Sodium 2.5 mg 10/05/18 17:00 Coumadin PO DAILY@1700 [facility] Protocol Nutrition/Malnutrition Assess - Dietary Evaluation Nutrition/Malnutrition Findings: Nutrition Notes Start: 09/29/18 15:12 Freq: Status: Active Protocol: Document 10/03/18 21:05 RM (Rec: 10/03/18 21:13 RM [id number]) Nutrition Notes Need for Assessment generated from: LOS Initial or Follow up Brief Note Current Diagnosis Diabetes,Hypertension,Stroke Other Pertinent Diagnosis Dementia,Encephalopathy, UTi Current Diet Caridac/Consistent CHO Labs/Tests Reviewed Pertinent Medications Lasix Height 5 ft 4 in Weight 68.039 kg [place] Body Weight (kg) 54.54 BMI 25.7 Subjective/Other Information Screened for LOS. Pt not in room at time of visit. Recorded PO intake 67% X 2 days. Percent of energy/protein needs met: 98%/82% Burn Absent Trauma Absent Is patient on ventilator? No Is Patient Ambulatory and/or Out of Bed No REE-([facility]-confined to bed) 0929.101 Calculation Used for Recommendations [facility] Additional Notes Protein Needs: 68-82g (1-1.2g/ kg) Fluid Needs: 1 ml/kcal Nutrition Intervention Follow-Up By: 10/08/18 Additional Comments Follow to confirm intakes
[2018-10-05] MEDS: COUMADIN PO SCH (17:24)
[2018-10-05] MEDS: ARICEPT PO SCH (21:37)
[2018-10-05] MEDS: NEURONTIN PO SCH (21:37)
[2018-10-05] MEDS: BENADRYL PO PRN (21:37)
[2018-10-05] MEDS: MYSOLINE PO SCH (21:37)
[2018-10-05] MEDS: TESSALON PERLES PO SCH (21:38)
[2018-10-05] MEDS: NACL 0.9% 1000 ML 1,000 ML IV SCH (21:46)
[2018-10-06] MEDS: TESSALON PERLES PO SCH ×2 (05:22→16:09)
[2018-10-06 05:43] LABS: INR 2.46 (0.87-1.13)
[2018-10-06] MEDS: PROVENTIL IH PRN ×2 (06:08→16:40)
[2018-10-06] MEDS: VITAMIN B-12 PO SCH (10:16)
[2018-10-06] MEDS: PEPCID PO SCH (10:16)
[2018-10-06] MEDS: IMDUR PO SCH (10:16)
[2018-10-06] MEDS: celeXA PO SCH (10:17)
[2018-10-06] MEDS: LASIX PO SCH (10:17)
[2018-10-06] MEDS: HALFPRIN EC PO SCH (10:17)
[2018-10-06] MEDS: VITAMIN D3 PO SCH (10:17)
[2018-10-06] MEDS: MUCINEX ER PO SCH (10:17)
[2018-10-06] MEDS: SODIUM CHLORIDE FLUSH SYRINGE 10 ML IV SCH (10:18)
[2018-10-06] MEDS: NAMENDA PO SCH (10:40)
[2018-10-06] MEDS: CALCIUM CARBONATE PO SCH (10:40)
--- NOTE | 2018-10-06 10:59 | Progress Note ---
Assessment and Plan Hematuria UTI Elevated D-dimer chest CTA reports bilateral pulmonary nodules suggestive of metastatic disease. No evidence of PE. Hx of lung cancer surgery in the past Hx of Urinary retention with fang catheter in place Hx of CAD with CABG in 1993 [facility] 09/[address] [facility] [place] vessel CAD, patent SVG to diagonal and patent SVG to OM. RICE was not used. Echocardiogram done 10/2017 showed a well preserved ejection fraction of 55%. Aortic Valve replacement -mechanical on warfarin; INR of 1.47 on presentation. Target INR of 2.0-2.5. Hx of paroxysmal Afib Dementia Hypertension Diabetes Continue warfarin for mechanical aortic valve. Otherwise, conservative cardiac management. Subjective Date of service: 10/06/18 Interval history: Target INR reached at 2.46 today. Objective Vital Signs Temp Pulse Pulse Resp Resp BP BP 10/06/18 08:23 10/06/18 07:55 98.3 F 64 18 127/40 10/06/18 05:50 65 20 10/06/18 05:41 69 10/06/18 02:40 69 126/54 10/06/18 02:25 98.3 F 67 22 10/06/18 02:24 64 99/30 10/05/18 23:39 72 10/05/18 20:28 98.7 F 22 102/43 10/05/18 19:54 79 10/05/18 19:48 76 10/05/18 19:45 98.1 F 74 20 114/31 10/05/18 13:31 98.8 F 68 20 124/58 Pulse Ox 10/06/18 08:23 98 10/06/18 07:55 96 10/06/18 05:50 10/06/18 05:41 96 10/06/18 02:40 95 10/06/18 02:25 93 10/06/18 02:24 93 10/05/18 23:39 10/05/18 20:28 10/05/18 19:54 96 10/05/18 19:48 93 10/05/18 19:45 86 10/05/18 13:31 89 - Physical Examination General: No Apparent Distress HEENT: Positive: PERRL Neck: Positive: trachea midline Cardiac: Positive: Reg Rate and Rhythm Lungs: Positive: Decreased Breath Sounds, Wheezes Neuro: Positive: Grossly Intact Abdomen: Positive: Soft Extremities: Absent: edema - Labs and Meds Coagulation 10/06/18 Range/Units 05:02 PT 26.2 H (12.2-14.9) Sec. INR 2.46 H (0.87-1.13)
--- NOTE | 2018-10-06 14:16 | Discharge Summary ---
Providers - Providers Date of Admission: 09/27/18 18:34 Attending physician: MORTEZA BLOUNT MD 09/27/18 18:34 Consult to Case Management [CONS] Routine Services Needed at Discharge: Other Notified:: RICCI Rasheed Physician Instructions: Send out for SNF/Rehab Placement 09/27/18 18:54 Physical Therapy Evaluation and Treat [CONS] Routine Comment: Reason For Exam: weakness/ 09/28/18 11:49 Consult to Physician [CONS] Routine Comment: JOSEFINA Consulting Provider: ÓSCAR SORIA Physician Instructions: WAS NOTIFIED. Reason For Exam: mechanical aortic valve, recurrent fall 09/28/18 11:51 Consult to Case Management [CONS] Routine Services Needed at Discharge: Physical Therapy Manager Philosophy Notified:: RICCI Rasheed Physician Instructions: PLACEMENT 09/29/18 17:08 Consult to Physician [CONS] Routine Comment: spoke with reymundo jennings/ [place] Consulting Provider: REYMUNDO GRADY Physician Instructions: Reason For Exam: adnexal mass 09/30/18 10:15 Consult to Physician [CONS] Routine Comment: called office / heriberto Consulting Provider: SHELDON KELLY Physician Instructions: family wants to know if it is cancer Reason For Exam: pulmonary nodules 10/01/18 14:42 Consult to Physician [CONS] Routine Comment: Consulting Provider: ROCAEL WILBURN Physician Instructions: Reason For Exam: urinary incontinence, indwelling fang catheter [facility] Condition: Stable Hospital course: 83 YO Female with COPD,AVR with mechanical valve on Coumadin, Debility, Dementia, Urinary Retention with indwelling fang catheter presents to ED for evaluation. Pt is confused and unable to provide detailed history. Pt history provided by daughter and son who are at bedside during exam and interview. As per family, the patient initially complained of pain with urination and well as pain with urination over the past week, with worsening symptoms over the past 3 days with concomitant confusion, decreased interaction with family. Pt also experienced decreased ability to conduct activities of daily living, and increased bedbound status with worsening gait instability. Pt is currently unable to ambulate independently and maintain upright seated position. Family also reports shortness of breath and increased productive cough with production of clear sputum without relief of symptoms with increased nebulizer therapy. EMS notified, and uopn arrival the patient was found to be in distress and transported to [facility]. Pt seen and evaluated in ED and found to have Encephalopathy, suspected UTI, COPD Exacerbation. Work up concerning for Metastic lung lesion - Discussed with personal care Nurse, patient had Lung surgery in the 80s - IR Consulted for possible biopsy and recommend O/P CT PET scan before the biopsy CT Head: No acute pathology CT chest: Multiple Pulmonary Nodule concerning for Metastatic Disease. Pelvic Ultrasound: Adnexal mass, concerning for enlarged lymphnode Acute Metabolic Encephalopathy with baseline Dementia although worsening COPD Acute Cystitis with no evidence of SEPSIS Debility Diabetes Mellitus Urinary Retention with chronic indwelling fang-Oupt work up in progress, Small pelvic mass - No intervention needed per RESEARCH ASSISTANT PROFESSOR - Seen by urology and no intervention needed Secondary coagulopathy with subtherapeutic INR AVR-[facility], Mechanical valve >30 years ago - INR is 1.14 today and cardiology recommend to Keep the patient INR is therapeutic and will put a heparin bridge Dementia Hyperkalemia- corrected Anemia Inferior Rectus wall Hematoma Remote Hx of Lung CA PLAN Complex patient considering co-morbidites Considering finding in the lungs, Agent Spa Desk recommend this CT abdomen and pelvis which didn't show any mass. Pulmonary sign off RESEARCH ASSISTANT PROFESSOR consulted for further evaluation, Patient also with Hematuria Continue to Monitor H/H Continue coumadin, wth target INR OF 2-2.5 PER Cardiology considering risk assocaiate with possible thrombotic closure of mechanical valve if needed PT/OT eval due to recurrent falls, risk discussed with patient and family (Son and daughter in-law) Fall precautions Urine culture continue abx dvt/GI PROPHY Disposition; Continue inpatient care until INR is therapeutic. After that patient will be discharged to SNF. Disposition: [id number] INPT RE[facility]AB FACILITY Time spent for discharge: 33 mins Core Measure Documentation - Palliative Care Palliative Care/ Comfort Measures: Not Applicable - Core Measures Any of the following diagnoses?: none Exam - Constitutional Vitals: Temp Pulse Resp BP Pulse Ox 98.3 F 64 18 127/40 98 10/06/18 07:55 10/06/18 07:55 10/06/18 07:55 10/06/18 07:55 10/06/18 08:23 General appearance: Present: no acute distress, well-nourished - EENT Eyes: Present: PERRL ENT: hearing intact, clear oral mucosa - Neck Neck: Present: supple, normal ROM - Respiratory Respiratory effort: normal Respiratory: bilateral: CTA - Cardiovascular Heart Sounds: Present: S1 & S2. Absent: rub, click - Extremities Extremities: pulses symmetrical, No edema Peripheral Pulses: within normal limits - Abdominal General gastrointestinal: Present: soft, non-tender, non-distended, normal bowel sounds Female genitourinary: Present: normal - Integumentary Integumentary: Present: clear, warm, dry - Musculoskeletal Musculoskeletal: gait normal, strength equal bilaterally - Psychiatric Psychiatric: appropriate mood/affect, intact judgment & insight - Neurologic Neurologic: CNII-XII intact, moves all extremities Plan Follow up with: WESTLEY OLIVA MD [Primary Care Provider] - 3-5 Days Forms: Warfarin Discharge Instruction
[2018-10-06 15:43] VITALS: BP 124/47
[2018-10-06] MEDS: COUMADIN PO SCH (16:09)
== END 2018-10-06 17:55 | DRG 190 ==
LOC: ED 17:14 → 2B-ACE 18:34
PROVIDERS: ADMIT Internal Medicine; ATTEND Internal Medicine
DX: J44.1 Chronic obstructive pulmonary disease with (acute) exacerbation (principal); G93.41 Metabolic encephalopathy; N30.01 Acute cystitis with hematuria; D68.8 Other specified coagulation defects; S36.62XA Contusion of rectum, initial encounter; E11.9 Type 2 diabetes mellitus without complications; F03.90 Unspecified dementia, unspecified severity, without behavioral disturbance, psychotic disturbance, mood disturbance, and anxiety; R33.9 Retention of urine, unspecified; R19.00 Intra-abdominal and pelvic swelling, mass and lump, unspecified site; E87.5 Hyperkalemia; D64.9 Anemia, unspecified; R91.8 Other nonspecific abnormal finding of lung field; I25.10 Atherosclerotic heart disease of native coronary artery without angina pectoris; I48.0 Paroxysmal atrial fibrillation; I10 Essential (primary) hypertension; Y93.89 Activity, other specified; Z79.01 Long term (current) use of anticoagulants; Z95.2 Presence of prosthetic heart valve; Y92.89 Other specified places as the place of occurrence of the external cause; Y99.8 Other external cause status; Z86.73 Personal history of transient ischemic attack (TIA), and cerebral infarction without residual deficits; Z82.49 Family history of ischemic heart disease and other diseases of the circulatory system; Z88.5 Allergy status to narcotic agent; Z79.82 Long term (current) use of aspirin; Z85.118 Personal history of other malignant neoplasm of bronchus and lung
CPT/HCPCS: 36415; 70450; 71045; 71275; 74178; 76856; 80048; 80053; 81001; 82962; 84132; 84439; 84443; 85014; 85018; 85025; 85027; 85049; 85379; 85520; 85610; 85730; 86304; 87086; 87116; 93970; 94640; 94760; 96374; G0378; J0696; J1644; J2920; J7030; Q9967